=== PATIENT | female | born 1940 | race Two or more races ===

== ENCOUNTER 2017-07-18 13:20 | Inpatient (IN) | payer MEDICARE, MEDICAID ==
[~2017-07-18] VITALS: Ht 152.4 cm; Wt 75.8 kg
[2017-07-18] MEDS ORDERED: Solu-MEDROL 125mg Inj IVP ONE (13:30)
[2017-07-18] MEDS ORDERED: Albuterol ud Inhalation HHN SCH (13:30)
[2017-07-18] MEDS ORDERED: Albuterol/Ipratropium 3ml neb ONE (13:32)
[2017-07-18 13:45] VITALS: BP 140/80
[2017-07-18] MEDS ORDERED: Levalbuterol Inh UD 1.25mg/0.5ml HHN ONE (13:45)
[2017-07-18] MEDS ORDERED: MAGNESIUM400 M1 PO (13:45)
[2017-07-18] MEDS ORDERED: SYMBICORT 16010.2 G1 IH (13:45)
[2017-07-18] MEDS ORDERED: MONTELUKAST SOD10 MG ORAL (13:45)
[2017-07-18] MEDS ORDERED: COUMADIN5 MG ORAL (13:45)
[2017-07-18] MEDS ORDERED: FERROUS SULFAT325 MG ORAL (13:45)
[2017-07-18] MEDS ORDERED: TYLENOL EXTRA500 MG ORAL (13:45)
[2017-07-18] MEDS ORDERED: VITAMIN D400 INTLU ORAL (13:45)
[2017-07-18] MEDS ORDERED: FUROSEMIDE40 MG ORAL (13:45)
[2017-07-18] MEDS ORDERED: IPRATROPIU0.2 MG/1 M HHN (13:45)
[2017-07-18] MEDS ORDERED: METFORMIN HCL500 M1 ORAL (13:45)
[2017-07-18] MEDS ORDERED: LEVOTHYROXINE75 MCG ORAL (13:45)
[2017-07-18] MEDS ORDERED: VITAMIN B COMP1 EAC2 ORAL (13:45)
[2017-07-18] MEDS ORDERED: METOPROLOL SUCC25 MG ORAL (13:45)
[2017-07-18] MEDS ORDERED: JANUVIA25 MG ORAL (13:45)
[2017-07-18] MEDS ORDERED: LATANOPROST2.5 ML BOTH EYES (13:45)
[2017-07-18] MEDS ORDERED: ALBUTEROL2.5 MG/3 M INH (13:45)
[2017-07-18] MEDS ORDERED: LEXAPRO10 MG ORAL (13:45)
[2017-07-18] MEDS ORDERED: ZOCOR20 M1 ORAL (13:45)
--- NOTE | 2017-07-18 13:59 | Emergency Room Report ---
History of Present Illness General Chief Complaint: Dyspnea/Respdistress Source: Patient, Caregiver Present Illness HPI 76-year-old female, brought in by caregiver, shortness of breath. Patient has history of asthma, today patient more short of breath than normal. Wheezing. Given nebulizer by EMS. Caregiver states that patient has been eating and drinking well just with labored breathing today. Caregiver denies any no recent hospitalizations Patient is awake, oriented x2, however not giving clear history Allergies: Coded Allergies: No Known Allergies (Unverified , 07/18/17) Patient History Past Medical History: see triage record Past Surgical History: none Pertinent Family History: none Reviewed Nursing Documentation: PMH: Agreed, PSxH: Agreed Nursing Documentation-PMH Hx Hypertension: Yes Hx Asthma: Yes Review of Systems All Other Systems: negative except mentioned in HPI Physical Exam Vital Signs Date Time Temp Pulse Resp B/P (MAP) Pulse Ox O2 Delivery O2 Flow Rate FiO2 07/18/17 13:21 98.0 130 20 140/80 98 Non-Rebreather 98.1 Sp02 EP Interpretation: reviewed, normal General Appearance: alert, moderate distress, Chronically Ill Head: normocephalic, atraumatic Eyes: bilateral eye normal inspection, bilateral eye PERRL, bilateral eye EOMI ENT: normal ENT inspection, normal pharynx, normal voice, moist mucus membranes Neck: normal inspection, full range of motion, supple Respiratory: respiratory distress, accessory muscle use, wheezing, expiration Cardiovascular #1: normal inspection, regular rate, rhythm, no edema, normal capillary refill Cardiovascular #2: 2+ radial (R), 2+ radial (L) Gastrointestinal: normal inspection, non tender, soft, non-distended, no guarding Musculoskeletal: normal inspection, back normal, normal range of motion, non- tender Neurologic: alert, responsive, system dispatcher III-XII nml as tested, sensory intact Psychiatric: other - poor historian Skin: normal inspection, normal color, no rash, warm/dry, well hydrated, normal turgor Procedures Critical Care Time Critical Care Time 40 minutes of CC time 76-year-old female, shortness of breath Likely with asthma exacerbation VS: Tachycardia, tachypnea PLAN: IV access, labs, nebs, steroids Anticipate admission to [facility] vs. [facility] CC time also includes review of labs, review of EMR, discussion with family and paperwork from SNF, d/w hospitalist CC could include dosing of pressors, additional Abx CC time does not include procedures Medical Decision Making Diagnostic Impression: Primary Impression: Respiratory distress Additional Impressions: Asthma exacerbation CHF exacerbation UTI (urinary tract infection) ER Course 76-year-old female with history of asthma p/w SOB DDX: Asthma exacerbation, pneumonia, upper respiratory infection/viral syndrome ACS Plan: Labs, Combivent nebulizer treatment x 3, steroids, EKG, CXR IV medications such as magnesium sulfate, continuous albuterol, BIPAP. ER Course: Patient's respiratory status has been closely monitored in the ED. Patient has been treated with Xopenex IV magnesium sulfate Repeat lung auscultation reveals persistent wheezing. Patent's remains tachypneic and hypoxic on room air. Patient has been placed on BIPAP. Disposition: Patient will be admitted to [facility]. Patient's status is serious as vitals reveals tachypnea and hypoxia. Patient requires close monitoring of respiratory status, continuation of BIPAP, and nebulizer Signed out to Dr Crespo -please endorse to admitting physician Please note that this Emergency Department Report was dictated using [employer] supervisor [employer] technology software, occasionally this can lead to erroneous entry secondary to interpretation by the dictation equipment. EKG Diagnostic Results EP Interpretation: Yes Rate: Tachycardic Rhythm: NSR ST Segments: No acute changes ASA given to patient: No Rhythm Strip EP Interpretation: Yes Rate: 130 Rhythm: NSR, no PVCs, no ectopy Chest X-ray CXR: Ordered: Yes 1 view Indication: SOB EP interpretation: Yes Interpretation: cardiomegaly, pulm vasc cingestion Impression: cardiomegaly, pulm vasc cingestion Electronically signed by Samaria Ndiaye MD Laboratory Tests Test 07/18/17 14:45 07/18/17 15:10 07/18/17 15:44 07/19/17 03:45 Arterial Blood pH 7.490 (7.350-7.450) Arterial Blood Partial Pressure CO2 29.7 mmHg (35.0-45.0) L Arterial Blood Partial Pressure O2 107.0 mmHg (75.0-100.0) H Arterial Blood HCO3 22.1 mmol/L (22.0-26.0) Arterial Blood Oxygen Saturation 97.6 % (92.0-98.0) Arterial Blood Base Excess -0.5 Tom Test Positive White Blood Count 11.1 K/UL (4.8-10.8) H 6.5 K/UL (4.8-10.8) Red Blood Count 3.90 M/UL (4.20-5.40) L 3.95 M/UL (4.20-5.40) L Hemoglobin 10.4 G/DL (12.0-16.0) L 10.9 G/DL (12.0-16.0) L Hematocrit 32.9 % (37.0-47.0) L 33.4 % (37.0-47.0) L Mean Corpuscular Volume 84 FL (80-99) 84 FL (80-99) Mean Corpuscular Hemoglobin 26.8 PG (27.0-31.0) L 27.5 PG (27.0-31.0) Mean Corpuscular Hemoglobin Concent 31.8 G/DL (32.0-36.0) L 32.6 G/DL (32.0-36.0) Red Cell Distribution Width 14.4 % (11.6-14.8) 14.7 % (11.6-14.8) Platelet Count 254 K/UL (150-450) 248 K/UL (150-450) Mean Platelet Volume 6.1 FL (6.5-10.1) L 5.8 FL (6.5-10.1) L Neutrophils (%) (Auto) 69.5 % (45.0-75.0) % (45.0-75.0) Lymphocytes (%) (Auto) 20.1 % (20.0-45.0) % (20.0-45.0) Monocytes (%) (Auto) 9.4 % (1.0-10.0) % (1.0-10.0) Eosinophils (%) (Auto) 0.1 % (0.0-3.0) % (0.0-3.0) Basophils (%) (Auto) 1.0 % (0.0-2.0) % (0.0-2.0) Prothrombin Time 17.0 SEC (9.30-11.50) H 20.0 SEC (9.30-11.50) H Prothrombin Time INR 1.6 (0.9-1.1) H 1.9 (0.9-1.1) H PTT 35 SEC (23-33) H Sodium Level 136 MMOL/L (136-145) 136 MMOL/L (136-145) Potassium Level 4.3 MMOL/L (3.5-5.1) 4.4 MMOL/L (3.5-5.1) Chloride Level 101 MMOL/L (98-107) 100 MMOL/L (98-107) Carbon Dioxide Level 27 MMOL/L (21-32) 29 MMOL/L (21-32) Anion Gap 8 mmol/L (5-15) 7 mmol/L (5-15) Blood Urea Nitrogen 23 mg/dL (7-18) H 29 mg/dL (7-18) H Creatinine 1.3 MG/DL (0.55-1.30) 1.5 MG/DL (0.55-1.30) H Estimate Glomerular Filtration Rate mL/min (>60) mL/min (>60) Glucose Level 152 MG/DL (74-106) H 201 MG/DL (74-106) H Lactic Acid Level 1.20 mmol/L (0.66-2.22) Calcium Level 9.6 MG/DL (8.5-10.1) 9.3 MG/DL (8.5-10.1) Total Bilirubin 1.0 MG/DL (0.2-1.0) 0.6 MG/DL (0.2-1.0) Aspartate Amino Transferase (AST) 50 U/L (15-37) H 20 U/L (15-37) Alanine Aminotransferase (ALT) 24 U/L (12-78) 25 U/L (12-78) Alkaline Phosphatase 62 U/L (46-116) 63 U/L (46-116) Troponin I 0.150 ng/mL (0.000-0.056) 0.099 ng/mL (0.000-0.056) Pro-B-Type Natriuretic Peptide 57513 pg/mL (0-125) H Total Protein 7.0 G/DL (6.4-8.2) 7.0 G/DL (6.4-8.2) Albumin 3.0 G/DL (3.4-5.0) L 2.9 G/DL (3.4-5.0) L Globulin 4.0 g/dL 4.1 g/dL Albumin/Globulin Ratio 0.8 (1.0-2.7) L 0.7 (1.0-2.7) L Urine Color Brown Urine Appearance Slightly cloudy Urine pH 5 (4.5-8.0) Urine Specific [place] 1.015 (1.005-1.035) Urine Protein 3+ (NEGATIVE) H Urine Glucose (UA) Negative (NEGATIVE) Urine Ketones 2+ (NEGATIVE) H Urine Occult Blood 4+ (NEGATIVE) H Urine Nitrite Negative (NEGATIVE) Urine Bilirubin 1+ (NEGATIVE) H Urine Ictotest Negative Urine Urobilinogen 1 MG/DL (0.0-1.0) H Urine Leukocyte Esterase 3+ (NEGATIVE) H Urine RBC 10-15 /HPF (0 - 2) H Urine WBC 40-60 /HPF (0 - 2) H Urine Squamous Epithelial Cells Few /LPF (NONE/OCC) Urine Amorphous Sediment Moderate /LPF (NONE) H Urine Bacteria Many /HPF (NONE) H Hemoglobin A1c 6.6 % (4.3-6.0) H Thyroid Stimulating Hormone (TSH) 3.166 uiU/mL (0.358-3.740) Last Vital Signs Date Time Temp Pulse Resp B/P (MAP) Pulse Ox O2 Delivery O2 Flow Rate FiO2 07/18/17 13:21 98.0 130 20 140/80 98 Non-Rebreather 98.1 Disposition: ADMITTED INPATIENT Condition: Critical Samaria Ndiaye M.D. Jul 18, 2017 13:58
[2017-07-18] MEDS: Ipratropium 0.02% Inh Soln 2.5ml UD HHN SCH (14:21)
--- NOTE | 2017-07-18 14:38 | Diagnostic Imaging Report ---
Indication: Shortness of breath Technique: One view of the chest Comparison: none Findings: Heart is enlarged. There is mild interstitial congestion. There may be small bilateral pleural effusions. Impression: Cardiomegaly with evidence of mild congestive heart failure
[2017-07-18 15:44] LABS: ANION GAP 8 mmol/L (5-15); BLOOD UREA NITROGEN 23 mg/dL (7-18); CALCIUM 9.6 MG/DL (8.5-10.1); CARBON DIOXIDE 27 MMOL/L (21-32); CHLORIDE 101 MMOL/L (98-107); CREATININE 1.3 MG/DL (0.55-1.30); POTASSIUM 4.3 MMOL/L (3.5-5.1); SODIUM 136 MMOL/L (136-145)
[2017-07-18 15:47] LABS: EOSINOPHILS % (AUTO) 0.1 % (0.0-3.0); HEMATOCRIT 32.9 % (37.0-47.0); HEMOGLOBIN 10.4 G/DL (12.0-16.0); INR 1.6 (0.9-1.1); LYMPHOCYTES % (AUTO) 20.1 % (20.0-45.0); MEAN CORPUSCULAR VOLUME 84 FL (80-99); MONOCYTES % (AUTO) 9.4 % (1.0-10.0); NEUTROPHILS % (AUTO) 69.5 % (45.0-75.0); PLATELET COUNT 254 K/UL (150-450); RED CELL DISTRIBUTION WIDTH 14.4 % (11.6-14.8); WHITE BLOOD COUNT 11.1 K/UL (4.8-10.8)
[2017-07-18 15:57] VITALS: BP 114/81
[2017-07-18 16:06] LABS: ALANINE AMINOTRANSFERASE 24 U/L (12-78); ALBUMIN/GLOBULIN RATIO 0.8 (1.0-2.7); ALKALINE PHOSPHATASE 62 U/L (46-116); ASPARTATE AMINO TRANSFERASE 50 U/L (15-37)
[2017-07-18 16:13] LABS: APPEARANCE,URINE SLIGHTLY CLOUDY; BILIRUBIN, URINE 1+ (NEGATIVE); COLOR,URINE BROWN; GLUCOSE, URINE (UA) NEGATIVE (NEGATIVE); KETONES,URINE 2+ (NEGATIVE); LEUKOCYTE ESTERASE ,URINE 3+ (NEGATIVE); NITRITE,URINE NEGATIVE (NEGATIVE); PH,URINE 5 (4.5-8.0); PROTEIN,URINE 3+ (NEGATIVE); UROBILINOGEN,URINE 1 MG/DL (0.0-1.0)
--- NOTE | 2017-07-18 18:52 | History & Physical ---
History and Physical History & Physicial Dictated #[id number] BANDAR NAZARIO Jul 18, 2017 18:52
[2017-07-18 19:30] VITALS: BP 109/84
[2017-07-18] MEDS ORDERED: Warfarin Sodium 3mg ORAL ONE (20:00)
[2017-07-18 20:30] VITALS: BP 112/88
--- NOTE | 2017-07-18 20:30 | History and Physical Report ---
DATE OF ADMISSION: 07/18/2017 REASON OF ADMISSION: Respiratory distress. 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 She has been very tachypneic, has been put on BiPAP. A chest x-ray is showing evidence of apical redistribution of the vessels and her white count is in the range of 11,000. Urinalysis is showing 40 to 60 WBCs per high-power field and urine has been sent for culture and sensitivity and she has been receiving IV Levaquin 750 mg by the time I am seeing her. She has underlying dementia. She is not able to give me a very fruitful history. 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 PAST SURGICAL HISTORY: Unknown. MEDICATIONS: Prior to admission have been Synthroid 0.075 mg p.o. daily; Lasix 40 mg p.o. daily, adjusted for her weight in the range of 54 kg; metformin 500 mg p.o. b.i.d.; Toprol-XL 12.5 mg p.o. daily; Singulair 10 mg p.o. daily; Januvia 100 mg p.o. daily; Diovan 80 mg p.o. daily; Coumadin 5 mg p.o. daily; DuoNeb q.6 h. p.r.n.; Advair one puff b.i.d.; and Xalatan eyedrops 0.05% in both eyes nightly. ALLERGIES: Aspirin. SOCIAL HISTORY: Does not smoke. She has been, however, exposed to secondhand smoke from the . She is living in an assisted living with a networks computer consultant. She has three daughters, two of them are out of state. FAMILY HISTORY: Noncontributory. REVIEW OF SYSTEMS: Impossible since she is not able to give me much history. PHYSICAL EXAMINATION: GENERAL: She does not seem to be in much acute distress. She is on BiPAP in the course of the emergency room. VITAL SIGNS: Blood pressure is 114/81, pulse of 98, respirations 18, and temperature 98.5 degrees. HEENT: Head is atraumatic. Eyes, pupils reactive to light. No evidence of papilledema. She has a BiPAP mask in place. NECK: Supple. Jugular venous distention is somewhat increased. HEART: Irregularly irregular. LUNGS: There are few crackles and few expiratory wheezes bilaterally. ABDOMEN: Supple. Bowel sounds positive. No hepatosplenomegaly. EXTREMITIES: Lower extremities show 1 to 2+ pedal edema. NEUROLOGICAL: Cranial nerves are grossly intact. She is disoriented x3 and deep tendon reflexes are symmetrically decreased in both lower extremities. LABORATORY DATA: Showing sodium 136, potassium 4.3, chloride 101, carbon dioxide 27, BUN is 23, creatinine is 1.3, glucose 152, and calcium 9.6. BNP of 10,940 and troponin of 0.15. WBC is 11.1, hemoglobin is 10.4, hematocrit 32.9, and platelets of 254,000. Urinalysis is showing 40 to 60 WBCs per high-power field, 2+ protein, negative nitrite, and 4+ blood. INR is 1.6. Chest x-ray is showing evidence of apical redistribution of the vessels. A 12-lead EKG is showing evidence of low-voltage compatible with COPD. Also, atrial fibrillation. No signs of acute ischemic changes. IMPRESSION: 1. Respiratory failure and distress most likely due to underlying congestive heart failure. I am suspecting possibility of acute exacerbation of diastolic dysfunction. 2. Pyuria with probable underlying urinary tract infection. 3. Type 2 diabetes mellitus. 4. Obstructive sleep apnea. 5. Hypothyroidism. PLAN: She is going to be admitted. We are going to give her Lasix 40 mg IV q.8 h. x2. We will obtain a 2D echocardiogram, also serial troponins. Pulmonary consult is in order. She has received IV Levaquin. Urine culture is still pending. We are going to adjust the dose of antibiotics and the choice of antibiotics is based on the urine culture. Mihai Pride M.D. DR: Ke JOB#: [id number] CC:
[2017-07-18] MEDS: Enoxaparin 30mg Inj SUBQ SCH (22:46)
[2017-07-19 05:10] LABS: HEMATOCRIT 33.4 % (37.0-47.0); HEMOGLOBIN 10.9 G/DL (12.0-16.0); MEAN CORPUSCULAR VOLUME 84 FL (80-99); PLATELET COUNT 248 K/UL (150-450); RED BLOOD COUNT 3.95 M/UL (4.20-5.40); RED CELL DISTRIBUTION WIDTH 14.7 % (11.6-14.8); WHITE BLOOD COUNT 6.5 K/UL (4.8-10.8)
[2017-07-19 05:18] LABS: ANION GAP 7 mmol/L (5-15); BLOOD UREA NITROGEN 29 mg/dL (7-18); CALCIUM 9.3 MG/DL (8.5-10.1); CARBON DIOXIDE 29 MMOL/L (21-32); CHLORIDE 100 MMOL/L (98-107); CREATININE 1.5 MG/DL (0.55-1.30); POTASSIUM 4.4 MMOL/L (3.5-5.1); SODIUM 136 MMOL/L (136-145)
[2017-07-19 05:31] LABS: ALANINE AMINOTRANSFERASE 25 U/L (12-78); ALBUMIN 2.9 G/DL (3.4-5.0); ALBUMIN/GLOBULIN RATIO 0.7 (1.0-2.7); ALKALINE PHOSPHATASE 63 U/L (46-116); ASPARTATE AMINO TRANSFERASE 20 U/L (15-37); BILIRUBIN,TOTAL 0.6 MG/DL (0.2-1.0)
[2017-07-19 06:15] LABS: INR 1.9 (0.9-1.1)
[2017-07-19] MEDS: sitaGLIPtin 50mg tab ORAL SCH (06:40)
[2017-07-19 08:00] VITALS: BP 129/90
[2017-07-19] MEDS: metFORMIN 500mg tab ORAL SCH ×2 (09:22→17:13)
--- NOTE | 2017-07-19 11:26 | Consultation ---
Consult Note Assessment/Plan pulm consult dict resp failure, improved asthma frantz poss sepsis uti dm abx hhn steroids cpap MAE DIEGO Jul 19, 2017 11:26
[2017-07-19 12:00] VITALS: BP 107/69
[2017-07-19] MEDS: Levalbuterol Inh UD 1.25mg/0.5ml HHN SCH ×3 (13:00→19:42)
[2017-07-19] MEDS ORDERED: Albuterol/Ipratropium 3ml neb HHN SCH (13:00)
[2017-07-19] MEDS ORDERED: Metoprolol Succinate XL 25mg tab ORAL SCH (13:00)
[2017-07-19] MEDS: Ipratropium 0.02% Inh Soln 2.5ml UD HHN SCH ×3 (13:00→19:42)
[2017-07-19] MEDS: Ampicillin/Sulbactam Sod 3 GM in NS 110 ML IVPB SCH ×2 (13:02→20:17)
--- NOTE | 2017-07-19 14:11 | General Progress Note ---
Assessment/Plan Problem List: (1) UTI (urinary tract infection) ICD Codes: N39.0 - Urinary tract infection, site not specified SNOMED: 13195188 (2) Respiratory distress ICD Codes: R06.03 - Acute respiratory distress SNOMED: 844252776 (3) CHF exacerbation ICD Codes: I50.9 - Heart failure, unspecified SNOMED: 94375960 (4) Asthma exacerbation ICD Codes: J45.901 - Unspecified asthma with (acute) exacerbation SNOMED: 772325228 (5) Sepsis ICD Codes: A41.9 - Sepsis, unspecified organism SNOMED: 34044867 (6) Atrial fibrillation with rapid ventricular response ICD Codes: I48.91 - Unspecified atrial fibrillation SNOMED: 375381706126834 Assessment/Plan add vanco pending culture, metoprolol for rate control, lasix, aldactone Subjective Constitutional: Reports: weakness HEENT: Reports: no symptoms Cardiovascular: Reports: irregular heart rate Respiratory: Reports: cough, shortness of breath Gastrointestinal/Abdominal: Reports: no symptoms Genitourinary: Reports: no symptoms Neurologic/Psychiatric: Reports: pre-existing deficit Endocrine: Reports: no symptoms Allergies: Coded Allergies: No Known Allergies (Unverified , 07/18/17) Objective Last 24 Hour Vital Signs Date Time Temp Pulse Resp B/P (MAP) Pulse Ox O2 Delivery O2 Flow Rate FiO2 07/19/17 13:02 108 112/72 07/19/17 12:00 97.0 109 16 107/69 100 Nasal Cannula 4.0 07/19/17 11:37 111 07/19/17 09:16 130 16 100 Facial 60 07/19/17 08:00 96.8 130 16 129/90 100 Bi-pap 60 07/19/17 08:00 60 07/19/17 07:43 131 07/19/17 07:22 131 15 100 Facial 60 07/19/17 05:04 130 14 100 Facial 100 07/19/17 04:00 129 07/19/17 04:00 100 07/19/17 03:05 129 18 100 Facial 100 07/19/17 01:14 118 16 99 Facial 100 07/19/17 00:00 100 07/19/17 00:00 125 07/18/17 23:01 124 14 100 Facial 100 07/18/17 21:03 126 28 99 Facial 100 07/18/17 20:40 98.1 129 16 112/88 100 Bi-pap 7.0 100 98.1 07/18/17 20:30 129 16 112/88 100 Bi-pap 7.0 100 07/18/17 19:30 128 23 109/84 100 Bi-pap 7.0 100 07/18/17 19:18 112 22 100 Facial 100 07/18/17 16:30 125 18 100 Facial 100 07/18/17 15:57 98.1 18 114/81 98 7.0 100 98.1 07/18/17 15:09 130 18 100 Facial 100 07/18/17 14:16 145 18 100 Facial 100 07/18/17 14:15 136 26 99 Bi-pap 100 Intake and Output 07/18/17 07/19/17 19:00 07:00 Intake Total 0 ml 50 ml Output Total 100 ml Balance 0 ml -50 ml Intake Oral 0 ml 50 ml Output Urine Total 100 ml # Voids 1 Laboratory Tests 07/18/17 14:45: Arterial Blood pH 7.490H, Arterial Blood Partial Pressure CO2 29.7L, Arterial Blood Partial Pressure O2 107.0H, Arterial Blood HCO3 22.1, Arterial Blood Oxygen Saturation 97.6, Arterial Blood Base Excess -0.5, Tom Test Positive 07/18/17 15:10: White Blood Count 11.1H, Red Blood Count 3.90L, Hemoglobin 10.4L, Hematocrit 32.9L, Mean Corpuscular Volume 84, Mean Corpuscular Hemoglobin 26.8L, Mean Corpuscular Hemoglobin Concent 31.8L, Red Cell Distribution Width 14.4, Platelet Count 254, Mean Platelet Volume 6.1L, Neutrophils (%) (Auto) 69.5, Lymphocytes (%) (Auto) 20.1, Monocytes (%) (Auto) 9.4, Eosinophils (%) (Auto) 0.1, Basophils (%) (Auto) 1.0, Prothrombin Time 17.0H, Prothromb Time International Ratio 1.6H, Activated Partial Thromboplast Time 35H, Sodium Level 136, Potassium Level 4.3, Chloride Level 101, Carbon Dioxide Level 27, Anion Gap 8, Blood Urea Nitrogen 23H, Creatinine 1.3, Estimat Glomerular Filtration Rate , Glucose Level 152H, Lactic Acid Level 1.20, Calcium Level 9.6, Total Bilirubin 1.0, Aspartate Amino Transf (AST/SGOT) 50H, Alanine Aminotransferase ( ALT/SGPT) 24, Alkaline Phosphatase 62, Troponin I 0.150H, Pro-B-Type Natriuretic Peptide 06318J, Total Protein 7.0, Albumin 3.0L, Globulin 4.0, Albumin/Globulin Ratio 0.8L 07/18/17 15:44: Urine Color Brown, Urine Appearance Slightly cloudy, Urine pH 5, Urine Specific [place] 1.015, Urine Protein 3+H, Urine Glucose (UA) Negative, Urine Ketones 2+H , Urine Occult Blood 4+H, Urine Nitrite Negative, Urine Bilirubin 1+H, Urine Ictotest Negative, Urine Urobilinogen 1H, Urine Leukocyte Esterase 3+H, Urine RBC 10-15H, Urine WBC 40-60H, Urine Squamous Epithelial Cells Few, Urine Amorphous Sediment ModerateH, Urine Bacteria ManyH 07/19/17 03:45: White Blood Count 6.5, Red Blood Count 3.95L, Hemoglobin 10.9L, Hematocrit 33.4L , Mean Corpuscular Volume 84, Mean Corpuscular Hemoglobin 27.5, Mean Corpuscular Hemoglobin Concent 32.6, Red Cell Distribution Width 14.7, Platelet Count 248, Mean Platelet Volume 5.8L, Neutrophils (%) (Auto) , Lymphocytes (%) ( Auto) , Monocytes (%) (Auto) , Eosinophils (%) (Auto) , Basophils (%) (Auto) , Prothrombin Time 20.0H, Prothromb Time International Ratio 1.9H, Sodium Level 136, Potassium Level 4.4, Chloride Level 100, Carbon Dioxide Level 29, Anion Gap 7, Blood Urea Nitrogen 29H, Creatinine 1.5H, Estimat Glomerular Filtration Rate , Glucose Level 201H, Calcium Level 9.3, Total Bilirubin 0.6, Aspartate Amino Transf (AST/SGOT) 20, Alanine Aminotransferase (ALT/SGPT) 25, Alkaline Phosphatase 63, Troponin I 0.099H, Total Protein 7.0, Albumin 2.9L, Globulin 4.1 , Albumin/Globulin Ratio 0.7L, Hemoglobin A1c 6.6H, Thyroid Stimulating Hormone (TSH) 3.166 Height (Feet): 5 Weight (Pounds): 201 General Appearance: no apparent distress, obese EENT: normal ENT inspection Neck: normal alignment Cardiovascular: regularly irregular, tachycardia Abdomen: soft, no organomegaly Edema: trace edema Neurologic: medical writer II-XII grossly normal IMELDA GRIER Jul 19, 2017 14:11
[2017-07-19] MEDS: Spironolactone 25mg tab ORAL SCH (15:04)
[2017-07-19] MEDS: Metoprolol 25mg tab ORAL SCH ×2 (15:04→23:49)
--- NOTE | 2017-07-19 15:10 | Cardiology Report ---
APPROVED REPORT EXAM: Two-dimensional and M-mode echocardiogram with Doppler and color Doppler. INDICATION Congestive Heart Failure M-Mode DIMENSIONS IVSd1.6 (0.7-1.1cm)Left Atrium (MM)4.2 (1.6-4.0cm) LVDd3.1 (3.5-5.6cm)Aortic Root3.5 (2.0-3.7cm) PWd1.2 (0.7-1.1cm)Aortic Cusp Exc.1.1 (1.5-2.0cm) IVSs1.6 cm LVDs2.2 (2.5-4.0cm) PWs1.8 cm Technically difficult study due to poor acoustical windows. Normal left ventricular chamber size, systolic function and wall motion. Left ventricular ejection fraction estimated to be 60-65%. Moderate left ventricular hypertrophy. Small anterior and posterior pericardial effusion. Mild bi-atrial enlargement by 2D. Calicified aortic valve sclerosis with reduced cusp excursion. Thickened mitral valve leaflets with soem decrease in excursion. Moderate mitral annulus and aortic root calcification. Pulmonic valve is well visualized. Normal tricuspid valve structure. IVC is normal in size and collapsible with respiration. A color flow and spectral Doppler study was performed and revealed: Trace aortic regurgitation. No mitral regurgitation. Mitral valve peak gradient average 17 mmgh and mean gradient 8 mmhg consistent with at least moderate mitral stenosis Mitral diastolic function not obtainable due to A-Fib. Mild tricuspid regurgitation. Tricuspid systolic velocities suggests peak right ventricular systolic pressure of 30mmHg Pulmonic regurgitation present.
[2017-07-19 16:00] VITALS: BP 103/69
[2017-07-19] MEDS ORDERED: Vancomycin 1250mg/D5W 250ml 250 ML IVPB SCH (16:00)
[2017-07-19] MEDS ORDERED: Warfarin Sodium 3mg ORAL ONE (17:00)
--- NOTE | 2017-07-19 19:45 | Consultation ---
DATE OF CONSULTATION: PULMONARY CONSULTATION CHIEF COMPLAINT: Shortness of breath. HISTORY OF PRESENT ILLNESS: This elderly [place] woman was admitted from home because of shortness of breath. She was found to be tachypneic and was placed on BiPAP. She was given steroids and breathing treatments and admission was arranged. She is better this morning and is on nasal oxygen sitting up in a chair. She has a little knowledge of her past history. PAST MEDICAL HISTORY: The records are reviewed and the history includes severe obstructive sleep apnea, chronic asthma, paroxysmal atrial fibrillation treated with Coumadin, possible COPD, type 2 diabetes, anemia, and hypothyroidism. MEDICATIONS: Reviewed. ALLERGIES: Possibly aspirin. SOCIAL HISTORY: She does not smoke. She apparently was exposed to secondhand smoke from the . She is living in assisted living, at this time with the chaser apprentice. REVIEW OF SYSTEMS: According to the caregiver at the bedside, she has difficulty ambulating. She eats with assistance. She is up in a chair each day and she does not have diarrhea, nausea, or vomiting. PHYSICAL EXAMINATION: GENERAL: The patient is sitting up in a chair, alert. On nasal oxygen, the saturation is 96%. She is overweight. HEENT: The head is normocephalic. NECK: No jugular venous distention. CHEST: Decreased breath sounds. CARDIAC: Rhythm is regular at this time. ABDOMEN: Soft and nontender. EXTREMITIES: No clubbing, cyanosis, or edema. LABORATORY AND DIAGNOSTIC DATA: Chest x-ray shows mild CHF. Blood cultures growing gram-positive cocci in clusters, one of two bottles. Urinalysis shows many white cells and gram-negative rods. IMPRESSION: 1. Acute respiratory failure requiring BiPAP, now improved. 2. Mild congestive heart failure. 3. Chronic asthma with exacerbation. 4. Obstructive sleep apnea. 5. Urinary tract infection. 6. Possible sepsis with gram-positive cocci, possible contaminant. 7. Diabetes. 8. Hypothyroidism. PLAN: The patient will be treated with nebulizer treatments and steroids. We will add antibiotics and adjust according to the results of cultures. The CPAP at night will be added. Marcello Harrington M.D. DR: CHRISTY JOB#: [id number] CC: Mihai Pride M.D.; Fax#: [phone] IMELDA GRIER M.D. ; FAX#: [phone] Cam Tinsley M.D.
[2017-07-19 20:00] VITALS: BP 105/68
[2017-07-19] MEDS: Solu-MEDROL 40mg Inj IVP SCH (20:17)
[2017-07-19] MEDS: Furosemide 40mg tab ORAL SCH (20:17)
[2017-07-19] MEDS: Enoxaparin 30mg Inj SUBQ SCH (20:19)
[2017-07-20] VITALS (7 sets, daily range): BP systolic 87–102; BP diastolic 53–69
[2017-07-20] MEDS: Ipratropium 0.02% Inh Soln 2.5ml UD HHN SCH ×4 (01:51→19:08)
[2017-07-20 05:46] LABS: HEMATOCRIT 32.6 % (37.0-47.0); HEMOGLOBIN 10.5 G/DL (12.0-16.0); MEAN CORPUSCULAR VOLUME 85 FL (80-99); PLATELET COUNT 306 K/UL (150-450); RED BLOOD COUNT 3.84 M/UL (4.20-5.40); RED CELL DISTRIBUTION WIDTH 14.7 % (11.6-14.8); WHITE BLOOD COUNT 10.8 K/UL (4.8-10.8)
[2017-07-20 06:07] LABS: INR 3.4 (0.9-1.1)
[2017-07-20 06:17] LABS: ANION GAP 9 mmol/L (5-15); BLOOD UREA NITROGEN 46 mg/dL (7-18); CARBON DIOXIDE 28 MMOL/L (21-32); CHLORIDE 97 MMOL/L (98-107); CREATININE 1.9 MG/DL (0.55-1.30); POTASSIUM 4.6 MMOL/L (3.5-5.1); SODIUM 134 MMOL/L (136-145)
[2017-07-20] MEDS: sitaGLIPtin 50mg tab ORAL SCH (06:20)
[2017-07-20] MEDS: Metoprolol 25mg tab ORAL SCH ×3 (06:20→20:27)
[2017-07-20] MEDS: Levalbuterol Inh UD 1.25mg/0.5ml HHN SCH ×3 (09:00→19:08)
[2017-07-20] MEDS: Spironolactone 25mg tab ORAL SCH (09:03)
[2017-07-20] MEDS: metFORMIN 500mg tab ORAL SCH (09:03)
[2017-07-20] MEDS: Solu-MEDROL 40mg Inj IVP SCH ×2 (09:03→20:27)
[2017-07-20] MEDS: Furosemide 40mg tab ORAL SCH (09:03)
[2017-07-20] MEDS: Ampicillin/Sulbactam Sod 3 GM in NS 110 ML IVPB SCH (09:04)
--- NOTE | 2017-07-20 14:51 | General Progress Note ---
Assessment/Plan Assessment/Plan 1) CHF is better 2) UTI with sepsis due to Klesiella 3) ? staph bacteremia, ? source, R/O SBE 4) CopD exacerbation 5) WENDY 6) A. Fib Plan: Will stop lasix Will check renal US Continue IV ATB's ID consult Physical RX Subjective Allergies: Coded Allergies: No Known Allergies (Unverified , 07/18/17) Subjective She looks more perky, less sob, off of bipap, creat is up to 1.9, urine CX is positive for klebsiella, blood Cx is positive for staph, TTE showed no vegetation, some moderate mitral stenosis Objective Last 24 Hour Vital Signs Date Time Temp Pulse Resp B/P (MAP) Pulse Ox O2 Delivery O2 Flow Rate FiO2 07/20/17 14:10 96/59 07/20/17 14:00 120 96/59 07/20/17 13:53 110 22 100 Nasal Cannula 4.0 36 07/20/17 12:51 122 07/20/17 12:00 97.6 121 18 87/65 97 Nasal Cannula 3.0 97.6 07/20/17 09:10 99 22 100 Nasal Cannula 4.0 36 07/20/17 09:00 105 22 100 Nasal Cannula 4.0 36 07/20/17 08:09 Nasal Cannula 4.0 36 07/20/17 08:09 100 Nasal Cannula 4.0 36 07/20/17 08:00 97.7 108 16 89/58 93 Room Air 4.0 97.7 07/20/17 08:00 110 07/20/17 06:20 113 110/75 07/20/17 04:00 108 07/20/17 04:00 97.5 107 20 101/69 100 Nasal Cannula 4.0 97.5 07/20/17 01:11 101 22 100 Nasal Cannula 4.0 36 07/20/17 01:04 104 22 100 Nasal Cannula 4.0 36 07/20/17 00:00 97.9 100 20 102/53 100 Nasal Cannula 4.0 97.9 07/20/17 00:00 111 07/19/17 23:49 110 119/85 07/19/17 20:38 112 16 99 Facial 45 07/19/17 20:00 98.2 106 17 105/68 100 Nasal Cannula 4.0 98.2 07/19/17 20:00 110 07/19/17 19:08 124 15 100 Facial 45 07/19/17 19:07 109 17 100 Nasal Cannula 4.0 36 07/19/17 19:00 Nasal Cannula 4.0 36 07/19/17 19:00 98 18 100 Nasal Cannula 4.0 36 07/19/17 19:00 100 Nasal Cannula 4.0 36 07/19/17 16:00 97.5 117 18 103/69 100 Nasal Cannula 4.0 07/19/17 16:00 117 07/19/17 15:04 120 112/72 07/19/17 15:01 116 22 99 Nasal Cannula 4.0 36 07/19/17 14:53 109 22 99 Nasal Cannula 4.0 36 Intake and Output 07/19/17 07/20/17 19:00 07:00 Intake Total 410.000 ml 160 ml Output Total 200 ml 200 ml Balance 210.000 ml -40 ml Intake Oral 50 ml 50 ml IV Total 360.000 ml 110 ml Output Urine Total 200 ml 200 ml Laboratory Tests 07/20/17 04:10: White Blood Count 10.8#, Red Blood Count 3.84L, Hemoglobin 10.5L, Hematocrit 32.6L, Mean Corpuscular Volume 85, Mean Corpuscular Hemoglobin 27.2, Mean Corpuscular Hemoglobin Concent 32.1, Red Cell Distribution Width 14.7, Platelet Count 306, Mean Platelet Volume 5.8L, Neutrophils (%) (Auto) , Lymphocytes (%) ( Auto) , Monocytes (%) (Auto) , Eosinophils (%) (Auto) , Basophils (%) (Auto) , Prothrombin Time 36.2H, Prothromb Time International Ratio 3.4H, Sodium Level 134L, Potassium Level 4.6, Chloride Level 97L, Carbon Dioxide Level 28, Anion Gap 9, Blood Urea Nitrogen 46H, Creatinine 1.9H, Estimat Glomerular Filtration Rate , Glucose Level 205H, Calcium Level 9.0 Height (Feet): 5 Weight (Pounds): 157 General Appearance: WD/WN, no apparent distress, alert EENT: PERRL/EOMI Neck: non-tender, normal alignment, supple Cardiovascular: tachycardia, irregularly irregular Respiratory/Chest: chest wall non-tender, decreased breath sounds Abdomen: non tender Pelvis: normal external exam Edema: trace edema 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
--- NOTE | 2017-07-20 15:12 | Infectious Diseases Prog Note ---
Assessment/Plan Problems: (1) Sepsis Assessment & Plan: with staphylococcus spp grew out of four bottles , most likely real, source? will switch vancomycin to zyvox to avoid further nephrotoxicity pending identifications and sensitivity , will repeat another set of blood culture today to confirm clearance , 2D ECH didn't show any vegetations to suggest endocarditis . (2) UTI (urinary tract infection) Assessment & Plan: with klebsiella pneumonia , continue ceftriaxon for 7 days (3) Respiratory distress Assessment & Plan: CHF VS COPD/ASTHMA exacerbation , recommend CT angio to rule out PE if no improvement in her symptoms , continue inhalers and diuretics as needed (4) Asthma exacerbation Assessment & Plan: continue inhalers, taper steroids, continue antibiotics , monitor CXR (5) WENDY (acute kidney injury) Assessment & Plan: suspect due to bladder outlet obstruction , with 275 cc of urine retention, recommend Bentley catheter for now , will stop vancomycin to avoid further nephrotoxicity Subjective Allergies: Coded Allergies: No Known Allergies (Unverified , 07/18/17) Objective Vital Signs Last 24 Hour Vital Signs Date Time Temp Pulse Resp B/P (MAP) Pulse Ox O2 Delivery O2 Flow Rate FiO2 07/20/17 14:10 96/59 07/20/17 14:00 120 96/59 07/20/17 13:53 110 22 100 Nasal Cannula 4.0 36 07/20/17 12:51 122 07/20/17 12:00 97.6 121 18 87/65 97 Nasal Cannula 3.0 97.6 07/20/17 09:10 99 22 100 Nasal Cannula 4.0 36 07/20/17 09:00 105 22 100 Nasal Cannula 4.0 36 07/20/17 08:09 Nasal Cannula 4.0 36 07/20/17 08:09 100 Nasal Cannula 4.0 36 07/20/17 08:00 97.7 108 16 89/58 93 Room Air 4.0 97.7 07/20/17 08:00 110 07/20/17 06:20 113 110/75 07/20/17 04:00 108 07/20/17 04:00 97.5 107 20 101/69 100 Nasal Cannula 4.0 97.5 07/20/17 01:11 101 22 100 Nasal Cannula 4.0 36 07/20/17 01:04 104 22 100 Nasal Cannula 4.0 36 07/20/17 00:00 97.9 100 20 102/53 100 Nasal Cannula 4.0 97.9 07/20/17 00:00 111 07/19/17 23:49 110 119/85 07/19/17 20:38 112 16 99 Facial 45 07/19/17 20:00 98.2 106 17 105/68 100 Nasal Cannula 4.0 98.2 07/19/17 20:00 110 07/19/17 19:08 124 15 100 Facial 45 07/19/17 19:07 109 17 100 Nasal Cannula 4.0 36 07/19/17 19:00 Nasal Cannula 4.0 36 07/19/17 19:00 98 18 100 Nasal Cannula 4.0 36 07/19/17 19:00 100 Nasal Cannula 4.0 36 07/19/17 16:00 97.5 117 18 103/69 100 Nasal Cannula 4.0 07/19/17 16:00 117 Height (Feet): 5 Weight (Pounds): 157 Microbiology Date/Time Source Procedure Growth Status 07/18/17 15:13 Blood Blood Culture - Preliminary Staphylococcus Species Resulted 07/18/17 15:13 Blood Blood Culture - Preliminary Staphylococcus Species Resulted 07/18/17 15:44 Urine,Clean Catch Urine Culture - Final Klebsiella Pneumoniae Complete Laboratory Tests Test 07/20/17 04:10 White Blood Count 10.8 K/UL (4.8-10.8) # Red Blood Count 3.84 M/UL (4.20-5.40) L Hemoglobin 10.5 G/DL (12.0-16.0) L Hematocrit 32.6 % (37.0-47.0) L Mean Corpuscular Volume 85 FL (80-99) Mean Corpuscular Hemoglobin 27.2 PG (27.0-31.0) Mean Corpuscular Hemoglobin Concent 32.1 G/DL (32.0-36.0) Red Cell Distribution Width 14.7 % (11.6-14.8) Platelet Count 306 K/UL (150-450) Mean Platelet Volume 5.8 FL (6.5-10.1) L Neutrophils (%) (Auto) % (45.0-75.0) Lymphocytes (%) (Auto) % (20.0-45.0) Monocytes (%) (Auto) % (1.0-10.0) Eosinophils (%) (Auto) % (0.0-3.0) Basophils (%) (Auto) % (0.0-2.0) Prothrombin Time 36.2 SEC (9.30-11.50) H Prothromb Time International Ratio 3.4 (0.9-1.1) H Sodium Level 134 MMOL/L (136-145) L Potassium Level 4.6 MMOL/L (3.5-5.1) Chloride Level 97 MMOL/L (98-107) L Carbon Dioxide Level 28 MMOL/L (21-32) Anion Gap 9 mmol/L (5-15) Blood Urea Nitrogen 46 mg/dL (7-18) H Creatinine 1.9 MG/DL (0.55-1.30) H Estimat Glomerular Filtration Rate mL/min (>60) Glucose Level 205 MG/DL (74-106) H Calcium Level 9.0 MG/DL (8.5-10.1) Current Medications Medications (Trade) Dose Ordered Sig/Tam Route PRN Reason Start Time Stop Time Status Last Admin Dose Admin Acetaminophen (Tylenol) 650 mg Q6H PRN ORAL Mild Pain/Temp > 100.5 07/18/17 22:30 08/17/17 22:29 Atorvastatin Calcium (Lipitor) 10 mg QHS ORAL 07/18/17 21:00 08/17/17 20:59 07/19/17 20:17 Ceftriaxone Sodium 1 gm/ Sodium Chloride 55 ml @ 110 mls/hr QHS IVPB 07/20/17 21:00 07/27/17 20:59 Dextrose (Dextrose 50%) STAT PRN IV Hypoglycemia 07/18/17 18:30 08/17/17 18:29 Ipratropium [place] (Atrovent) 500 mcg Q6HRT N 07/19/17 13:00 07/24/17 12:59 07/20/17 13:53 Levalbuterol HCl (Xopenex) 1.25 mg TIDRT N 07/19/17 13:00 07/24/17 12:59 07/20/17 13:53 Levothyroxine Sodium (Synthroid) 75 mcg DAILY@0630 ORAL 07/19/17 06:30 08/18/17 06:29 07/20/17 06:20 Methylprednisolone Sodium Succinate (Solu-MEDROL) 40 mg EVERY 12 HOURS IVP 07/19/17 21:00 08/18/17 20:59 07/20/17 09:03 Metoprolol Tartrate (Lopressor) 25 mg Q8HR ORAL 07/19/17 15:00 08/18/17 14:59 07/20/17 06:20 Pantoprazole (Protonix) 40 mg DAILY ORAL 07/19/17 12:00 08/18/17 11:59 07/20/17 09:03 Sitagliptin Phosphate (Januvia) 25 mg ACBREAKFAST ORAL 07/21/17 06:30 08/20/17 06:29 Vancomycin HCl (Vanco rx to dose) 1 ea DAILY PRN MISC Per rx protocol 07/19/17 14:15 08/18/17 14:14 Warfarin Sodium (Coumadin per pharmacy) 1 ea DAILY PRN MISC Per rx protocol 07/18/17 18:30 08/17/17 18:29 Juan Foy M.D. Jul 20, 2017 15:12
--- NOTE | 2017-07-20 15:23 | Diagnostic Imaging Report ---
Indication: Reason For Exam: COPD, Shortness of breath Technique: XRAY Chest 1v Comparison: 07/18/2017 Findings: Stable cardiomegaly. There is persistent but decreased interstitial opacification/edema. No new focal airspace consolidation. No pleural effusion or pneumothorax. Osseous structures are stable. Impression: Cardiomegaly with persistent but decreased interstitial edema/opacification. No new focal airspace consolidation.
--- NOTE | 2017-07-20 16:13 | Diagnostic Imaging Report ---
Indication: Renal failure Technique: Multiplanar grayscale and color Doppler imaging of the kidneys and bladder. Comparison: None Findings: Right kidney measures 9.1 cm in length. Left kidney measures 9.2 cm in length. Both kidneys demonstrate normal parenchymal thickness and echogenicity. There is no hydronephrosis or sonographically appreciable renal stone bilaterally. Bladder is unremarkable in appearance. Ureteral jets are visualized. There is no significant post void residual bladder volume (post void residual bladder volume of 13 mL). Imaged portions of the IVC and liver unremarkable. IMPRESSION: No evidence of hydronephrosis or sonographically appreciable renal stones. Renal parenchymal echogenicity appears within normal limits bilaterally.
--- NOTE | 2017-07-20 18:11 | Pulmonology Progress Note ---
Assessment/Plan Assessment/Plan 1. Acute respiratory failure requiring BiPAP, now improved. 2. Mild congestive heart failure. 3. Chronic asthma with exacerbation. 4. Obstructive sleep apnea, CPAP at night 5. Urinary tract infection. 6. Sepsis with gram-positive cocci in 4 of 4 BC 7. Diabetes. 8. Hypothyroidism 9. WENDY renal fcn worse abx adjusted per ID for GPC bacteremia no resp distress tolerated CPAP at night cont HHN Subjective Respiratory: Denies: productive cough, shortness of breath Allergies: Coded Allergies: No Known Allergies (Unverified , 07/18/17) Objective Last 24 Hour Vital Signs Date Time Temp Pulse Resp B/P (MAP) Pulse Ox O2 Delivery O2 Flow Rate FiO2 07/20/17 16:01 122 07/20/17 14:10 96/59 07/20/17 14:02 97 22 100 Nasal Cannula 4.0 36 07/20/17 14:00 120 96/59 07/20/17 13:53 110 22 100 Nasal Cannula 4.0 36 07/20/17 12:51 122 07/20/17 12:00 97.6 121 18 87/65 97 Nasal Cannula 3.0 97.6 07/20/17 09:10 99 22 100 Nasal Cannula 4.0 36 07/20/17 09:00 105 22 100 Nasal Cannula 4.0 36 07/20/17 08:09 Nasal Cannula 4.0 36 07/20/17 08:09 100 Nasal Cannula 4.0 36 07/20/17 08:00 97.7 108 16 89/58 93 Room Air 4.0 97.7 07/20/17 08:00 110 07/20/17 06:20 113 110/75 07/20/17 04:00 108 07/20/17 04:00 97.5 107 20 101/69 100 Nasal Cannula 4.0 97.5 07/20/17 01:11 101 22 100 Nasal Cannula 4.0 36 07/20/17 01:04 104 22 100 Nasal Cannula 4.0 36 07/20/17 00:00 97.9 100 20 102/53 100 Nasal Cannula 4.0 97.9 07/20/17 00:00 111 07/19/17 23:49 110 119/85 07/19/17 20:38 112 16 99 Facial 45 07/19/17 20:00 98.2 106 17 105/68 100 Nasal Cannula 4.0 98.2 07/19/17 20:00 110 07/19/17 19:08 124 15 100 Facial 45 07/19/17 19:07 109 17 100 Nasal Cannula 4.0 36 07/19/17 19:00 Nasal Cannula 4.0 36 07/19/17 19:00 98 18 100 Nasal Cannula 4.0 36 07/19/17 19:00 100 Nasal Cannula 4.0 36 Intake and Output 07/19/17 07/20/17 19:00 07:00 Intake Total 410.000 ml 160 ml Output Total 200 ml 200 ml Balance 210.000 ml -40 ml Intake Oral 50 ml 50 ml IV Total 360.000 ml 110 ml Output Urine Total 200 ml 200 ml General Appearance: no acute distress HEENT: atraumatic Respiratory/Chest: lungs clear Cardiovascular: normal rate Abdomen: soft, non tender Microbiology Date/Time Source Procedure Growth Status 07/18/17 15:13 Blood Blood Culture - Preliminary Staphylococcus Species Resulted 07/18/17 15:13 Blood Blood Culture - Preliminary Staphylococcus Species Resulted 07/18/17 15:44 Urine,Clean Catch Urine Culture - Final Klebsiella Pneumoniae Complete Laboratory Tests 07/20/17 04:10: White Blood Count 10.8#, Red Blood Count 3.84L, Hemoglobin 10.5L, Hematocrit 32.6L, Mean Corpuscular Volume 85, Mean Corpuscular Hemoglobin 27.2, Mean Corpuscular Hemoglobin Concent 32.1, Red Cell Distribution Width 14.7, Platelet Count 306, Mean Platelet Volume 5.8L, Neutrophils (%) (Auto) , Lymphocytes (%) ( Auto) , Monocytes (%) (Auto) , Eosinophils (%) (Auto) , Basophils (%) (Auto) , Prothrombin Time 36.2H, Prothromb Time International Ratio 3.4H, Sodium Level 134L, Potassium Level 4.6, Chloride Level 97L, Carbon Dioxide Level 28, Anion Gap 9, Blood Urea Nitrogen 46H, Creatinine 1.9H, Estimat Glomerular Filtration Rate , Glucose Level 205H, Calcium Level 9.0 Current Medications Medications (Trade) Dose Ordered Sig/Tam Route PRN Reason Start Time Stop Time Status Last Admin Dose Admin Acetaminophen (Tylenol) 650 mg Q6H PRN ORAL Mild Pain/Temp > 100.5 07/18/17 22:30 08/17/17 22:29 Atorvastatin Calcium (Lipitor) 10 mg QHS ORAL 07/18/17 21:00 08/17/17 20:59 07/19/17 20:17 Ceftriaxone Sodium 1 gm/ Sodium Chloride 55 ml @ 110 mls/hr QHS IVPB 07/20/17 21:00 07/27/17 20:59 Dextrose (Dextrose 50%) STAT PRN IV Hypoglycemia 07/18/17 18:30 08/17/17 18:29 Ipratropium [place] (Atrovent) 500 mcg Q6HRT HHN 07/19/17 13:00 07/24/17 12:59 07/20/17 13:53 Levalbuterol HCl (Xopenex) 1.25 mg TIDRT HHN 07/19/17 13:00 07/24/17 12:59 07/20/17 13:53 Levothyroxine Sodium (Synthroid) 75 mcg DAILY@0630 ORAL 07/19/17 06:30 08/18/17 06:29 07/20/17 06:20 Linezolid 300 ml @ 300 mls/hr Q12HR IVPB 07/20/17 21:00 07/27/17 20:59 Methylprednisolone Sodium Succinate (Solu-MEDROL) 40 mg EVERY 12 HOURS IVP 07/19/17 21:00 08/18/17 20:59 07/20/17 09:03 Metoprolol Tartrate (Lopressor) 25 mg Q8HR ORAL 07/19/17 15:00 08/18/17 14:59 07/20/17 06:20 Pantoprazole (Protonix) 40 mg DAILY ORAL 07/19/17 12:00 08/18/17 11:59 07/20/17 09:03 Sitagliptin Phosphate (Januvia) 25 mg ACBREAKFAST ORAL 07/21/17 06:30 08/20/17 06:29 Warfarin Sodium (Coumadin per pharmacy) 1 ea DAILY PRN MISC Per rx protocol 07/18/17 18:30 08/17/17 18:29 MAE DIEGO Jul 20, 2017 18:11
[2017-07-20] MEDS: cefTRIAXone 1 GM in NS 55 ML IVPB SCH (20:26)
[2017-07-21] VITALS: BP 90/52
--- NOTE | 2017-07-21 01:00 | Consultation ---
DATE OF CONSULTATION: 07/20/2017 INFECTIOUS DISEASE CONSULTATION CONSULTING PHYSICIAN: Juan Foy M.D. REQUESTING PHYSICIAN: Mihai Pride M.D. REASON FOR CONSULTATION: Sepsis with Staphylococcus species and UTI due to Klebsiella pneumoniae, recommendation for antibiotics treatment and further management. HISTORY OF PRESENT ILLNESS: The patient is a 76-year-old, [place] female with past medical history of COPD, paroxysmal atrial fibrillation, obstructive sleep apnea, diabetes, and anemia, who was brought in to [facility] Emergency Room for progressive shortness of breath. As per the caregiver, the patient was having shortness of breath all of sudden. She did not have any recent upper respiratory infection or flu-like symptoms. She did not travel recently except a trip she made to [facility] in January 2017. The patient denied any fever or chills. No cough or phlegm. No chest pain. No nausea, vomiting, or diarrhea. No headache or blurry vision. In the emergency room, chest x-ray showed congestion on both sides with possible CHF. The patient's urinalysis showed evidence of infection. So, she was started on levofloxacin initially. Then, this was switched to Unasyn by the research epidemiologist and later, she was on vancomycin and ceftriaxone. Two sets of blood cultures grew staphylococcus species with identification and sensitivity pending. Growth was from all bottles including aerobic and anaerobic bottles. She also had urine culture, which grew Klebsiella pneumoniae. So, Infectious Disease consultation was requested for antibiotic treatment and further management. As of note, the patient is poor historian. History was mainly taken from the caregiver and the daughter over the phone. PAST MEDICAL HISTORY: Significant for atrial fibrillation, COPD, obstructive sleep apnea, diabetes type 2, and anemia. PAST SURGICAL HISTORY: Not on record. MEDICATIONS: She is currently on vancomycin, ceftriaxone, and Solu-Medrol. For the rest of her medications, please refer to MAR. ALLERGIES: No known drug allergy. SOCIAL HISTORY: She lives at home with daughter. She is a secondhand smoker in the past, not actively smoking. No recent drugs or alcohol abuse. FAMILY HISTORY: Negative for recurrent infection or immunocompromised condition. REVIEW OF SYSTEMS: A 14-point of system reviewed were all negative apart from the one I mentioned above in my H and P. PHYSICAL EXAMINATION: VITAL SIGNS: Temperature 97.6 degrees, pulse 97, respirations 22, blood pressure 96/59, and pulse oximetry 100% on 4 liters nasal cannula. GENERAL: A middle-aged female, obese, lying in bed, awake, alert, responsive, not in distress. Caregiver at the bedside. HEENT: Normocephalic and atraumatic. Pupils are reactive to light equally. Pale sclerae. Moist oral mucosa. No exudate or thrush. Dentures in place. NECK: Supple. No lymphadenopathy. CARDIOVASCULAR: She was tachycardic. S1 and S2 normal. No murmur. LUNGS: She had diminished breathing sounds at the bases with mild wheezing. ABDOMEN: Soft and distended mainly in the suprapubic area with distended bladder. No rebound. No organomegaly. No ascites. EXTREMITIES: No edema or cyanosis. No clubbing. SKIN: No rash. No hives. No ulceration. LABORATORY AND DIAGNOSTIC DATA: Labs showed white count of 10.8, hemoglobin of 10.5, and platelet count of 306,000. BUN of 46 and creatinine of 1.9. Urinalysis showed negative nitrite, leukocyte esterase +3, WBC 40 to 60, and many bacteria. Microbiology, blood culture x2 on 07/18/2017 grew staphylococcus species out of four bottles. Urine culture grew Klebsiella pneumoniae resistant only to ampicillin and intermediate to nitrofurantoin. IMAGING: Chest x-ray today showed cardiomegaly with decreased interstitial edema and opacification. No new focal airspace consolidation. Echocardiogram showed normal ejection fraction of 60% to 65%, moderate left ventricular hypertrophy, and small anterior and posterior pericardial effusion. No valve vegetation, but calcified aortic valve sclerosis with reduced cusp excursion and thickened mitral valve leaflets. ASSESSMENT AND RECOMMENDATION: 1. Sepsis with staphylococcus species grew out of four bottles, most likely real source unclear at this point. We will switch vancomycin to Zyvox to avoid further nephrotoxicity pending identification and sensitivity of the blood culture. We will repeat another set of blood culture today to confirm clearance. A 2D echocardiogram did not show any vegetations to suggest endocarditis. Continue to monitor culture. 2. Urinary tract infection with Klebsiella pneumoniae. Continue ceftriaxone for seven days. 3. Respiratory distress, congestive heart failure versus chronic obstructive pulmonary disease and asthma exacerbation. Continue inhalers and diuretics as needed. May need CT angiogram to rule out pulmonary embolism if no improvement in her symptoms. 4. Asthma exacerbation. Continue inhalers. Taper steroid. Continue antibiotics. Monitor chest x-ray. Mac Operator is following. 5. Acute kidney failure, suspect due to bladder outlet obstruction with urine retention of 275 mL. Recommend Bentley catheter placement. For now, we will stop vancomycin to avoid further nephrotoxicity. Renal team is following. Thank you for the consult. Infectious Disease will continue to follow. Juan Foy M.D. DR: Noah JOB#: [id number] CC:
[2017-07-21] MEDS: Ipratropium 0.02% Inh Soln 2.5ml UD HHN SCH ×4 (01:09→19:17)
[2017-07-21 04:00] VITALS: BP 109/71
[2017-07-21 04:52] LABS: ANION GAP 9 mmol/L (5-15); BLOOD UREA NITROGEN 57 mg/dL (7-18); CALCIUM 8.6 MG/DL (8.5-10.1); CARBON DIOXIDE 27 MMOL/L (21-32); CHLORIDE 94 MMOL/L (98-107); CREATININE 2.1 MG/DL (0.55-1.30); POTASSIUM 4.8 MMOL/L (3.5-5.1); SODIUM 130 MMOL/L (136-145)
[2017-07-21 04:55] LABS: INR 3.9 (0.9-1.1)
[2017-07-21 04:59] LABS: HEMATOCRIT 30.7 % (37.0-47.0); HEMOGLOBIN 10.1 G/DL (12.0-16.0); MEAN CORPUSCULAR VOLUME 84 FL (80-99); PLATELET COUNT 283 K/UL (150-450); RED BLOOD COUNT 3.65 M/UL (4.20-5.40); RED CELL DISTRIBUTION WIDTH 14.5 % (11.6-14.8); WHITE BLOOD COUNT 7.2 K/UL (4.8-10.8)
[2017-07-21] MEDS: sitaGLIPtin 25mg tab ORAL SCH (05:39)
[2017-07-21] MEDS: Metoprolol 25mg tab ORAL SCH ×2 (05:40→17:54)
[2017-07-21] MEDS: Levalbuterol Inh UD 1.25mg/0.5ml HHN SCH ×3 (07:15→19:17)
[2017-07-21 08:00] VITALS: BP 110/74
[2017-07-21] MEDS: Solu-MEDROL 40mg Inj IVP SCH (08:48)
[2017-07-21 12:00] VITALS: BP 95/68
--- NOTE | 2017-07-21 13:10 | Cardiology Progress Note ---
Assessment/Plan Assessment/Plan The patient is seen and examined, full consult note will be dictated shortly. Objective Last 24 Hour Vital Signs Date Time Temp Pulse Resp B/P (MAP) Pulse Ox O2 Delivery O2 Flow Rate FiO2 07/21/17 12:19 112 18 95 Nasal Cannula 2.0 28 07/21/17 12:09 110 16 95 Room Air 21 07/21/17 12:00 112 07/21/17 12:00 98.7 109 22 95/68 98 Nasal Cannula 3.0 98.7 07/21/17 08:00 97.6 105 17 110/74 98 Nasal Cannula 3.0 97.6 07/21/17 08:00 96 07/21/17 07:23 94 18 99 Nasal Cannula 2.0 28 07/21/17 07:15 Nasal Cannula 2.0 28 07/21/17 07:15 92 18 99 Nasal Cannula 2.0 28 07/21/17 07:15 99 Nasal Cannula 2.0 28 07/21/17 05:40 120 110/74 07/21/17 04:00 97.9 123 18 109/71 98 Nasal Cannula 3.0 97.9 07/21/17 03:54 122 07/21/17 01:19 118 20 99 Nasal Cannula 2.0 28 07/21/17 01:09 114 20 99 Nasal Cannula 2.0 28 07/21/17 00:00 116 07/21/17 00:00 98.7 116 16 90/52 99 Nasal Cannula 3.0 98.7 07/20/17 20:27 116 97/62 07/20/17 20:00 98.1 117 20 88/57 97 Nasal Cannula 3.0 98.1 07/20/17 19:35 116 07/20/17 19:19 116 20 98 Nasal Cannula 2.0 28 07/20/17 19:09 Nasal Cannula 2.0 28 07/20/17 19:09 98 Nasal Cannula 2.0 28 07/20/17 19:09 116 20 98 Nasal Cannula 2.0 28 07/20/17 16:01 122 07/20/17 16:00 98.3 118 20 97/62 97 Nasal Cannula 3.0 98.3 07/20/17 14:10 96/59 07/20/17 14:02 97 22 100 Nasal Cannula 4.0 36 07/20/17 14:00 120 96/59 07/20/17 13:53 110 22 100 Nasal Cannula 4.0 36 Intake and Output 07/20/17 07/21/17 19:00 07:00 Intake Total 355 ml Balance 355 ml IV Total 355 ml # Bowel Movements 1 Laboratory Tests Test 07/21/17 04:20 White Blood Count 7.2 K/UL (4.8-10.8) Red Blood Count 3.65 M/UL (4.20-5.40) L Hemoglobin 10.1 G/DL (12.0-16.0) L Hematocrit 30.7 % (37.0-47.0) L Mean Corpuscular Volume 84 FL (80-99) Mean Corpuscular Hemoglobin 27.6 PG (27.0-31.0) Mean Corpuscular Hemoglobin Concent 32.8 G/DL (32.0-36.0) Red Cell Distribution Width 14.5 % (11.6-14.8) Platelet Count 283 K/UL (150-450) Mean Platelet Volume 5.7 FL (6.5-10.1) L Neutrophils (%) (Auto) % (45.0-75.0) Lymphocytes (%) (Auto) % (20.0-45.0) Monocytes (%) (Auto) % (1.0-10.0) Eosinophils (%) (Auto) % (0.0-3.0) Basophils (%) (Auto) % (0.0-2.0) Prothrombin Time 41.1 SEC (9.30-11.50) H Prothromb Time International Ratio 3.9 (0.9-1.1) H Sodium Level 130 MMOL/L (136-145) L Potassium Level 4.8 MMOL/L (3.5-5.1) Chloride Level 94 MMOL/L (98-107) L Carbon Dioxide Level 27 MMOL/L (21-32) Anion Gap 9 mmol/L (5-15) Blood Urea Nitrogen 57 mg/dL (7-18) H Creatinine 2.1 MG/DL (0.55-1.30) H Estimat Glomerular Filtration Rate mL/min (>60) Glucose Level 275 MG/DL (74-106) H Calcium Level 8.6 MG/DL (8.5-10.1) Random Vancomycin Level 9.7 ug/mL Microbiology Date/Time Source Procedure Growth Status 2/19/18 15:13 Blood Blood Culture - Preliminary Staphylococcus Sp Coag Neg Resulted 07/18/17 15:13 Blood Blood Culture - Preliminary Staphylococcus Sp Coag Neg Resulted 07/18/17 21:20 Nasal Nares MRSA Culture - Final NO METHICILLIN RESISTANT STAPH AUREUS... Complete 07/18/17 15:44 Urine,Clean Catch Urine Culture - Final Klebsiella Pneumoniae Complete 07/18/17 21:20 Rectum VRE Culture - Final NO VANCOMYCIN RESISTANT ENTEROCOCCUS ... Complete DIETER BECKWITH Jul 21, 2017 13:10
[2017-07-21] MEDS ORDERED: Digoxin 0.5mg/2ml Inj IVP ONE (14:00)
--- NOTE | 2017-07-21 14:05 | Infectious Diseases Prog Note ---
Assessment/Plan Problems: (1) Sepsis Assessment & Plan: with coag negative staphylococcus spp grew out of four bottles , most likely real, source? continue zyvox to cover for bacteremia , keep off vancomycin for now to avoid further nephrotoxicity , repeated blood culture to confirm clearance is pending , 2D ECH didn't show any vegetations to suggest endocarditis . will need two weeks of iv antibiotics for her bacteremia (2) UTI (urinary tract infection) Assessment & Plan: with klebsiella pneumonia , continue ceftriaxon for 7 days (3) Respiratory distress Assessment & Plan: CHF VS COPD/ASTHMA exacerbation , continue inhalers and diuretics as needed (4) Asthma exacerbation Assessment & Plan: continue inhalers, taper steroids, continue antibiotics , monitor CXR (5) WENDY (acute kidney injury) Assessment & Plan: suspect due to bladder outlet obstruction , with 275 cc of urine retention, recommend Bentley catheter for now , will keep off vancomycin to avoid further nephrotoxicity Subjective Constitutional: Reports: no symptoms HEENT: Reports: no symptoms Respiratory: Reports: no symptoms Breasts: Reports: no symptoms Cardiovascular: Reports: no symptoms Gastrointestinal/Abdominal: Reports: no symptoms Genitourinary: Reports: no symptoms Neurologic: Reports: no symptoms Psychiatric: Reports: no symptoms Skin: Reports: no symptoms Endocrine: Reports: no symptoms Hematologic: Reports: no symptoms Musculoskeletal: Reports: no symptoms Allergies: Coded Allergies: No Known Allergies (Unverified , 07/18/17) Objective Vital Signs Last 24 Hour Vital Signs Date Time Temp Pulse Resp B/P (MAP) Pulse Ox O2 Delivery O2 Flow Rate FiO2 07/21/17 12:19 112 18 95 Nasal Cannula 2.0 28 07/21/17 12:09 110 16 95 Room Air 21 07/21/17 12:00 112 07/21/17 12:00 98.7 109 22 95/68 98 Nasal Cannula 3.0 98.7 07/21/17 08:00 97.6 105 17 110/74 98 Nasal Cannula 3.0 97.6 07/21/17 08:00 96 07/21/17 07:23 94 18 99 Nasal Cannula 2.0 28 07/21/17 07:15 Nasal Cannula 2.0 28 07/21/17 07:15 92 18 99 Nasal Cannula 2.0 28 07/21/17 07:15 99 Nasal Cannula 2.0 28 07/21/17 05:40 120 110/74 07/21/17 04:00 97.9 123 18 109/71 98 Nasal Cannula 3.0 97.9 07/21/17 03:54 122 07/21/17 01:19 118 20 99 Nasal Cannula 2.0 28 07/21/17 01:09 114 20 99 Nasal Cannula 2.0 28 07/21/17 00:00 116 07/21/17 00:00 98.7 116 16 90/52 99 Nasal Cannula 3.0 98.7 07/20/17 20:27 116 97/62 07/20/17 20:00 98.1 117 20 88/57 97 Nasal Cannula 3.0 98.1 07/20/17 19:35 116 07/20/17 19:19 116 20 98 Nasal Cannula 2.0 28 07/20/17 19:09 Nasal Cannula 2.0 28 07/20/17 19:09 98 Nasal Cannula 2.0 28 07/20/17 19:09 116 20 98 Nasal Cannula 2.0 28 07/20/17 16:01 122 07/20/17 16:00 98.3 118 20 97/62 97 Nasal Cannula 3.0 98.3 07/20/17 14:10 96/59 07/20/17 14:02 97 22 100 Nasal Cannula 4.0 36 07/20/17 14:00 120 96/59 Height (Feet): 5 Weight (Pounds): 155 General Appearance: WD/WN, no acute distress HEENT: normocephalic, atraumatic, anicteric, mucous membranes moist, PERRL Respiratory/Chest: chest wall non-tender, lungs clear, no respiratory distress , no accessory muscle use, decreased breath sounds Cardiovascular: normal peripheral pulses, normal rate, regular rhythm, no gallop/murmur, no JVD Abdomen: normal bowel sounds, soft, non tender, no organomegaly, non distended , no mass, no scars Extremities: no cyanosis, no clubbing Skin: no rash, no lesions, no ulcers Neurologic/Psychiatric: alert, oriented x 3, responsive Microbiology Date/Time Source Procedure Growth Status 07/18/17 15:13 Blood Blood Culture - Preliminary Staphylococcus Sp Coag Neg Resulted 07/18/17 15:13 Blood Blood Culture - Preliminary Staphylococcus Sp Coag Neg Resulted 07/18/17 21:20 Nasal Nares MRSA Culture - Final NO METHICILLIN RESISTANT STAPH AUREUS... Complete 07/18/17 15:44 Urine,Clean Catch Urine Culture - Final Klebsiella Pneumoniae Complete 07/18/17 21:20 Rectum VRE Culture - Final NO VANCOMYCIN RESISTANT ENTEROCOCCUS ... Complete Laboratory Tests Test 07/21/17 04:20 White Blood Count 7.2 K/UL (4.8-10.8) Red Blood Count 3.65 M/UL (4.20-5.40) L Hemoglobin 10.1 G/DL (12.0-16.0) L Hematocrit 30.7 % (37.0-47.0) L Mean Corpuscular Volume 84 FL (80-99) Mean Corpuscular Hemoglobin 27.6 PG (27.0-31.0) Mean Corpuscular Hemoglobin Concent 32.8 G/DL (32.0-36.0) Red Cell Distribution Width 14.5 % (11.6-14.8) Platelet Count 283 K/UL (150-450) Mean Platelet Volume 5.7 FL (6.5-10.1) L Neutrophils (%) (Auto) % (45.0-75.0) Lymphocytes (%) (Auto) % (20.0-45.0) Monocytes (%) (Auto) % (1.0-10.0) Eosinophils (%) (Auto) % (0.0-3.0) Basophils (%) (Auto) % (0.0-2.0) Prothrombin Time 41.1 SEC (9.30-11.50) H Prothromb Time International Ratio 3.9 (0.9-1.1) H Sodium Level 130 MMOL/L (136-145) L Potassium Level 4.8 MMOL/L (3.5-5.1) Chloride Level 94 MMOL/L (98-107) L Carbon Dioxide Level 27 MMOL/L (21-32) Anion Gap 9 mmol/L (5-15) Blood Urea Nitrogen 57 mg/dL (7-18) H Creatinine 2.1 MG/DL (0.55-1.30) H Estimat Glomerular Filtration Rate mL/min (>60) Glucose Level 275 MG/DL (74-106) H Calcium Level 8.6 MG/DL (8.5-10.1) Random Vancomycin Level 9.7 ug/mL Current Medications Medications (Trade) Dose Ordered Sig/Tam Route PRN Reason Start Time Stop Time Status Last Admin Dose Admin Acetaminophen (Tylenol) 650 mg Q6H PRN ORAL Mild Pain/Temp > 100.5 07/18/17 22:30 08/17/17 22:29 Atorvastatin Calcium (Lipitor) 10 mg QHS ORAL 07/18/17 21:00 08/17/17 20:59 07/20/17 20:27 Ceftriaxone Sodium 1 gm/ Sodium Chloride 55 ml @ 110 mls/hr QHS IVPB 07/20/17 21:00 07/27/17 20:59 07/20/17 20:26 Dextrose (Dextrose 50%) STAT PRN IV Hypoglycemia 07/18/17 18:30 08/17/17 18:29 Digoxin (Lanoxin) 0.25 mg ONCE ONCE IVP 07/21/17 14:00 07/21/17 14:01 Ipratropium [place] (Atrovent) 500 mcg Q6HRT HHN 07/19/17 13:00 07/24/17 12:59 07/21/17 12:09 Levalbuterol HCl (Xopenex) 1.25 mg TIDRT HHN 07/19/17 13:00 07/24/17 12:59 07/21/17 12:09 Levothyroxine Sodium (Synthroid) 75 mcg DAILY@0630 ORAL 07/19/17 06:30 08/18/17 06:29 07/21/17 05:39 Linezolid 300 ml @ 300 mls/hr Q12HR IVPB 07/20/17 21:00 07/27/17 20:59 07/21/17 08:48 Methylprednisolone Sodium Succinate (Solu-MEDROL) 40 mg EVERY 12 HOURS IVP 07/19/17 21:00 08/18/17 20:59 07/21/17 08:48 Metoprolol Tartrate (Lopressor) 50 mg BID ORAL 07/21/17 18:00 08/18/17 14:59 Pantoprazole (Protonix) 40 mg DAILY ORAL 07/19/17 12:00 08/18/17 11:59 07/21/17 08:48 Sitagliptin Phosphate (Januvia) 25 mg ACBREAKFAST ORAL 07/21/17 06:30 08/20/17 06:29 07/21/17 05:39 Warfarin Sodium (Coumadin per pharmacy) 1 ea DAILY PRN MISC Per rx protocol 07/18/17 18:30 08/17/17 18:29 Juan Foy M.D. Jul 21, 2017 14:05
--- NOTE | 2017-07-21 15:28 | General Progress Note ---
Assessment/Plan Assessment/Plan 1) CHF is better 2) UTI with sepsis due to Klesiella 3) ? staph bacteremia, ? source, R/O SBE 4) CopD exacerbation 5) WENDY worsening 6) A. Fib Plan: Will stop solumedrol Will start NS at 50 cc/hr x 20 hours Continue IV ATB's Aweaiting cardiology input, ? need for BISI Physical RX Labs in AM Subjective Allergies: Coded Allergies: No Known Allergies (Unverified , 07/18/17) Subjective She is looking better, off of O2, creat is up to 2.1, renal us is negative for hydronephrosis, no urinary retention on bladder scan Objective Last 24 Hour Vital Signs Date Time Temp Pulse Resp B/P (MAP) Pulse Ox O2 Delivery O2 Flow Rate FiO2 07/21/17 12:19 112 18 95 Nasal Cannula 2.0 28 07/21/17 12:09 110 16 95 Room Air 21 07/21/17 12:00 112 07/21/17 12:00 98.7 109 22 95/68 98 Nasal Cannula 3.0 98.7 07/21/17 08:00 97.6 105 17 110/74 98 Nasal Cannula 3.0 97.6 07/21/17 08:00 96 07/21/17 07:23 94 18 99 Nasal Cannula 2.0 28 07/21/17 07:15 Nasal Cannula 2.0 28 07/21/17 07:15 92 18 99 Nasal Cannula 2.0 28 07/21/17 07:15 99 Nasal Cannula 2.0 28 07/21/17 05:40 120 110/74 07/21/17 04:00 97.9 123 18 109/71 98 Nasal Cannula 3.0 97.9 07/21/17 03:54 122 07/21/17 01:19 118 20 99 Nasal Cannula 2.0 28 07/21/17 01:09 114 20 99 Nasal Cannula 2.0 28 07/21/17 00:00 116 07/21/17 00:00 98.7 116 16 90/52 99 Nasal Cannula 3.0 98.7 07/20/17 20:27 116 97/62 07/20/17 20:00 98.1 117 20 88/57 97 Nasal Cannula 3.0 98.1 07/20/17 19:35 116 07/20/17 19:19 116 20 98 Nasal Cannula 2.0 28 07/20/17 19:09 Nasal Cannula 2.0 28 07/20/17 19:09 98 Nasal Cannula 2.0 28 07/20/17 19:09 116 20 98 Nasal Cannula 2.0 28 07/20/17 16:01 122 07/20/17 16:00 98.3 118 20 97/62 97 Nasal Cannula 3.0 98.3 Intake and Output 07/20/17 07/21/17 19:00 07:00 Intake Total 355 ml Balance 355 ml IV Total 355 ml # Bowel Movements 1 Laboratory Tests 07/21/17 04:20: White Blood Count 7.2, Red Blood Count 3.65L, Hemoglobin 10.1L, Hematocrit 30.7L , Mean Corpuscular Volume 84, Mean Corpuscular Hemoglobin 27.6, Mean Corpuscular Hemoglobin Concent 32.8, Red Cell Distribution Width 14.5, Platelet Count 283, Mean Platelet Volume 5.7L, Neutrophils (%) (Auto) , Lymphocytes (%) ( Auto) , Monocytes (%) (Auto) , Eosinophils (%) (Auto) , Basophils (%) (Auto) , Prothrombin Time 41.1H, Prothromb Time International Ratio 3.9H, Sodium Level 130L, Potassium Level 4.8, Chloride Level 94L, Carbon Dioxide Level 27, Anion Gap 9, Blood Urea Nitrogen 57H, Creatinine 2.1H, Estimat Glomerular Filtration Rate , Glucose Level 275H, Calcium Level 8.6, Random Vancomycin Level 9.7 Height (Feet): 5 Weight (Pounds): 155 General Appearance: WD/WN, no apparent distress, alert EENT: PERRL/EOMI, normal ENT inspection Neck: non-tender, normal alignment, supple Cardiovascular: normal rate, regular rhythm, no JVD Respiratory/Chest: decreased breath sounds Abdomen: normal bowel sounds, non tender, soft Extremities: normal range of motion, non-tender Edema: trace edema 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
--- NOTE | 2017-07-21 15:40 | Pulmonology Progress Note ---
Assessment/Plan Assessment/Plan 1. Acute respiratory failure requiring BiPAP, now improved. 2. Mild congestive heart failure. 3. Chronic asthma with exacerbation. 4. Obstructive sleep apnea, CPAP at night 5. Urinary tract infection. 6. Sepsis with gram-positive cocci in 4 of 4 BC 7. Diabetes. 8. Hypothyroidism 9. 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 Subjective Constitutional: Denies: fever, chills Respiratory: Denies: productive cough, shortness of breath Allergies: Coded Allergies: No Known Allergies (Unverified , 07/18/17) Objective Last 24 Hour Vital Signs Date Time Temp Pulse Resp B/P (MAP) Pulse Ox O2 Delivery O2 Flow Rate FiO2 07/21/17 15:13 112 07/21/17 12:19 112 18 95 Nasal Cannula 2.0 28 07/21/17 12:09 110 16 95 Room Air 21 07/21/17 12:00 112 07/21/17 12:00 98.7 109 22 95/68 98 Nasal Cannula 3.0 98.7 07/21/17 08:00 97.6 105 17 110/74 98 Nasal Cannula 3.0 97.6 07/21/17 08:00 96 07/21/17 07:23 94 18 99 Nasal Cannula 2.0 28 07/21/17 07:15 Nasal Cannula 2.0 28 07/21/17 07:15 92 18 99 Nasal Cannula 2.0 28 07/21/17 07:15 99 Nasal Cannula 2.0 28 07/21/17 05:40 120 110/74 07/21/17 04:00 97.9 123 18 109/71 98 Nasal Cannula 3.0 97.9 07/21/17 03:54 122 07/21/17 01:19 118 20 99 Nasal Cannula 2.0 28 07/21/17 01:09 114 20 99 Nasal Cannula 2.0 28 07/21/17 00:00 116 07/21/17 00:00 98.7 116 16 90/52 99 Nasal Cannula 3.0 98.7 07/20/17 20:27 116 97/62 07/20/17 20:00 98.1 117 20 88/57 97 Nasal Cannula 3.0 98.1 07/20/17 19:35 116 07/20/17 19:19 116 20 98 Nasal Cannula 2.0 28 07/20/17 19:09 Nasal Cannula 2.0 28 07/20/17 19:09 98 Nasal Cannula 2.0 28 07/20/17 19:09 116 20 98 Nasal Cannula 2.0 28 07/20/17 16:01 122 07/20/17 16:00 98.3 118 20 97/62 97 Nasal Cannula 3.0 98.3 Intake and Output 07/20/17 07/21/17 19:00 07:00 Intake Total 355 ml Balance 355 ml IV Total 355 ml # Bowel Movements 1 General Appearance: no acute distress HEENT: atraumatic Respiratory/Chest: lungs clear Cardiovascular: normal rate Microbiology Date/Time Source Procedure Growth Status 07/18/17 21:20 Nasal Nares MRSA Culture - Final NO METHICILLIN RESISTANT STAPH AUREUS... Complete 07/18/17 15:44 Urine,Clean Catch Urine Culture - Final Klebsiella Pneumoniae Complete 07/18/17 21:20 Rectum VRE Culture - Final NO VANCOMYCIN RESISTANT ENTEROCOCCUS ... Complete Laboratory Tests 07/21/17 04:20: White Blood Count 7.2, Red Blood Count 3.65L, Hemoglobin 10.1L, Hematocrit 30.7L , Mean Corpuscular Volume 84, Mean Corpuscular Hemoglobin 27.6, Mean Corpuscular Hemoglobin Concent 32.8, Red Cell Distribution Width 14.5, Platelet Count 283, Mean Platelet Volume 5.7L, Neutrophils (%) (Auto) , Lymphocytes (%) ( Auto) , Monocytes (%) (Auto) , Eosinophils (%) (Auto) , Basophils (%) (Auto) , Prothrombin Time 41.1H, Prothromb Time International Ratio 3.9H, Sodium Level 130L, Potassium Level 4.8, Chloride Level 94L, Carbon Dioxide Level 27, Anion Gap 9, Blood Urea Nitrogen 57H, Creatinine 2.1H, Estimat Glomerular Filtration Rate , Glucose Level 275H, Calcium Level 8.6, Random Vancomycin Level 9.7 Current Medications Medications (Trade) Dose Ordered Sig/Tam Route PRN Reason Start Time Stop Time Status Last Admin Dose Admin Acetaminophen (Tylenol) 650 mg Q6H PRN ORAL Mild Pain/Temp > 100.5 07/18/17 22:30 08/17/17 22:29 Atorvastatin Calcium (Lipitor) 10 mg QHS ORAL 07/18/17 21:00 08/17/17 20:59 07/20/17 20:27 Ceftriaxone Sodium 1 gm/ Sodium Chloride 55 ml @ 110 mls/hr QHS IVPB 07/20/17 21:00 07/27/17 20:59 07/20/17 20:26 Dextrose (Dextrose 50%) STAT PRN IV Hypoglycemia 07/18/17 18:30 08/17/17 18:29 Ipratropium [place] (Atrovent) 500 mcg Q6HRT HHN 07/19/17 13:00 07/24/17 12:59 07/21/17 12:09 Levalbuterol HCl (Xopenex) 1.25 mg TIDRT HHN 07/19/17 13:00 07/24/17 12:59 07/21/17 12:09 Levothyroxine Sodium (Synthroid) 75 mcg DAILY@0630 ORAL 07/19/17 06:30 08/18/17 06:29 07/21/17 05:39 Linezolid 300 ml @ 300 mls/hr Q12HR IVPB 07/20/17 21:00 07/27/17 20:59 07/21/17 08:48 Metoprolol Tartrate (Lopressor) 50 mg BID ORAL 07/21/17 18:00 08/18/17 14:59 Pantoprazole (Protonix) 40 mg DAILY ORAL 07/19/17 12:00 08/18/17 11:59 07/21/17 08:48 Sitagliptin Phosphate (Januvia) 25 mg ACBREAKFAST ORAL 07/21/17 06:30 08/20/17 06:29 07/21/17 05:39 Sodium Chloride 1,000 ml @ 50 mls/hr Q20H IV 07/21/17 16:00 07/22/17 15:59 Warfarin Sodium (Coumadin per pharmacy) 1 ea DAILY PRN MISC Per rx protocol 07/18/17 18:30 08/17/17 18:29 MAE DIEGO Jul 21, 2017 15:40
[2017-07-21 16:00] VITALS: BP 122/71
[2017-07-21 20:00] VITALS: BP 115/78
[2017-07-21] MEDS: cefTRIAXone 1 GM in NS 55 ML IVPB SCH (20:34)
--- NOTE | 2017-07-21 21:02 | Consultation ---
DATE OF CONSULTATION: 07/21/2017 CARDIOLOGY CONSULTATION CONSULTING PHYSICIAN: Saul Lindsay M.D. REFERRING PHYSICIAN: Mihai Pride M.D. REASON FOR CONSULTATION: Management of atrial fibrillation. HISTORY OF PRESENT ILLNESS: The patient is a very pleasant 76-year-old lady, who presents to the hospital with shortness of breath that has been going on for about a day. The patient was given nebulizer by EMS en route to the hospital. On arrival to the hospital, blood pressure was 140/80 mmHg. Her oxygenation was 98% on non-rebreather mask. A 12-lead electrocardiogram done in the emergency department revealed atrial fibrillation with rapid ventricular response. The patient was admitted to [facility] for further evaluation and management. PAST MEDICAL HISTORY: Obstructive sleep apnea, COPD, paroxysmal atrial fibrillation, diabetes mellitus type 2, and anemia. PAST SURGICAL HISTORY: None. MEDICATIONS: Including Synthroid 0.075 mg p.o. daily, Lasix 40 mg p.o. daily, metformin 500 mg twice daily, Toprol-XL 12.5 mg daily, singular 10 mg p.o. daily, Januvia 100 mg p.o. daily, Diovan 80 mg p.o. daily, Coumadin 5 mg p.o. daily, DuoNeb inhaler q.6 h. p.r.n. shortness of breath, Advair one puff twice daily, and Xalatan eyedrops 0.05% in both eyes nightly. ALLERGIES: Aspirin. SOCIAL HISTORY: Denies any tobacco, but has been exposed to cigarettes from her . She lives in an assisted living facility with a caregiver. She has three daughters, two of them out of state. FAMILY HISTORY: No premature coronary artery disease in the first-degree relatives. REVIEW OF SYSTEMS: HEENT: Denies any headache, diplopia, or blurred vision. CONSTITUTIONAL: Denies any fever, chills, night sweats, or weight loss. CARDIOVASCULAR: Denies any chest pain, however, she has shortness of breath. Denies any PND, orthopnea, leg swelling, or syncope. PULMONARY: Denies any cough, hemoptysis, or wheezing. GASTROINTESTINAL: Denies any nausea, vomiting, diarrhea, constipation, abdominal pain, or GI bleeding. GENITOURINARY: Denies any hematuria, dysuria, or incontinence. NEUROLOGY: Denies any motor dysfunction, sensory deficit, or altered speech. MUSCULOSKELETAL: Pretty much wheelchair bound and not walking according to the caregiver. PHYSICAL EXAMINATION: VITAL SIGNS: Blood pressure at the time of arrival to the emergency department was 140/80, respirations 20, pulse was 130, temperature 98.0 degrees Fahrenheit, and O2 saturation on non-rebreather mask was 98%. GENERAL: The patient is a very unfortunate 76-year-old female, in no apparent respiratory distress, speaking to me in Farsi language, very well coherent. HEENT: Atraumatic and normocephalic. Anicteric. Pupils are equal, round, and reactive to light and accommodation. Extraocular muscles intact. NECK: JVP cannot be assessed as she is in a sitting position. No carotid bruit. Carotid upstrokes 2+ bilaterally. CARDIOVASCULAR: Normal S1 and S2. Irregularly irregular rhythm. A 2/6 mid systolic murmur at the left sternal border. PMI is at fourth intercostal space in the midclavicular line. LUNGS: Diminished breath sounds in both lungs. Did not appreciate any crackles. ABDOMEN: Obese. No hepatosplenomegaly. Positive bowel sounds. EXTREMITIES: No evidence of edema, clubbing, or cyanosis. LABORATORY FINDINGS: WBC was 11.1, hemoglobin 10.4, hematocrit 32.9, and platelet count is 254,000. Sodium was 136, potassium is 4.3, chloride is 101, bicarbonate is 27, BUN of 23, and creatinine 1.3. Glucose is 152. Calcium is 9.6. Troponin I was 0.15. ProBNP was 10,940. INR was 1.6. Chest x-ray showed cardiomegaly with evidence of mild congestive heart failure. A 2D echocardiography was significant for normal LV systolic function with LVEF of 60% to 65% and moderate LVH. There was a small pericardial effusion. No signs of tamponade. Severe biatrial enlargement. There was mitral annular calcification leading to mitral valve stenosis with mean pressure gradient around 8 mm consistent with moderate mitral stenosis. A 12-lead electrocardiogram, atrial fibrillation at the rate of [address] and T-wave abnormalities. ASSESSMENT AND PLAN: The patient is a very unfortunate 76-year-old female seen in Cardiology consultation at the request of Dr. Pride. 1. Acute on chronic diastolic heart failure possibly due to atrial fibrillation with rapid ventricular response. I would like to decrease the rate with the use of digoxin as well as optimization of the beta-blockers. 2. Dyspnea could be multifactorial in combination of chronic obstructive pulmonary disease and congestive heart failure. From the pulmonary standpoint, the patient may benefit from bronchodilators, possibly steroids. Oxygen and pulmonary toilet and inhalers. 3. Paroxysmal atrial fibrillation. According to Dr. Pride, we will try to rate control with beta-timbo. I would like to add digoxin to control the rate a little bit better. We will continue with warfarin therapy to keep the INR between 2 and 3. 4. Moderate mitral stenosis due to mitral annular calcification and mitral leaflet calcification. I would like to thank, Dr. Pride, for allowing me to participate in the care of this most pleasant patient. Saul Lindsay M.D. DR: BIENVENIDO JOB#: [id number] CC:
[2017-07-22] VITALS: BP 124/72
[2017-07-22] MEDS: Ipratropium 0.02% Inh Soln 2.5ml UD HHN SCH ×4 (01:30→18:52)
[2017-07-22 04:00] VITALS: BP 111/70
[2017-07-22 05:49] LABS: BASOPHILS % (AUTO) 0.6 % (0.0-2.0); EOSINOPHILS % (AUTO) 0.1 % (0.0-3.0); HEMATOCRIT 31.6 % (37.0-47.0); HEMOGLOBIN 10.2 G/DL (12.0-16.0); LYMPHOCYTES % (AUTO) 19.6 % (20.0-45.0); MEAN CORPUSCULAR VOLUME 84 FL (80-99); MONOCYTES % (AUTO) 7.3 % (1.0-10.0); NEUTROPHILS % (AUTO) 72.5 % (45.0-75.0); PLATELET COUNT 279 K/UL (150-450); RED BLOOD COUNT 3.75 M/UL (4.20-5.40); RED CELL DISTRIBUTION WIDTH 14.1 % (11.6-14.8)
[2017-07-22 06:01] LABS: ANION GAP 9 mmol/L (5-15); BLOOD UREA NITROGEN 60 mg/dL (7-18); CALCIUM 8.5 MG/DL (8.5-10.1); CARBON DIOXIDE 26 MMOL/L (21-32); CHLORIDE 94 MMOL/L (98-107); CREATININE 2.3 MG/DL (0.55-1.30); POTASSIUM 4.8 MMOL/L (3.5-5.1); SODIUM 129 MMOL/L (136-145)
[2017-07-22 06:05] LABS: INR 2.8 (0.9-1.1)
[2017-07-22] MEDS: sitaGLIPtin 25mg tab ORAL SCH (06:07)
[2017-07-22 08:00] VITALS: BP 99/57
[2017-07-22] MEDS: Levalbuterol Inh UD 1.25mg/0.5ml HHN SCH ×3 (08:02→18:52)
[2017-07-22] MEDS: Metoprolol 25mg tab ORAL SCH ×2 (08:42→18:30)
[2017-07-22 12:00] VITALS: BP 120/79
--- NOTE | 2017-07-22 14:25 | Infectious Diseases Prog Note ---
Assessment/Plan Problems: (1) Sepsis Assessment & Plan: with coag negative staphylococcus spp grew out of four bottles , most likely real, source? continue zyvox for now , repeated blood culture to confirm clearance is negative so far , 2D ECH didn't show any vegetations to suggest endocarditis . will need two weeks of iv antibiotics for her bacteremia since she cleared it quickly (2) UTI (urinary tract infection) Assessment & Plan: with klebsiella pneumonia , continue ceftriaxon for 7 days (3) Respiratory distress Assessment & Plan: CHF VS COPD/ASTHMA exacerbation , continue inhalers and diuretics as needed (4) Asthma exacerbation Assessment & Plan: continue inhalers, taper steroids, continue antibiotics , monitor CXR (5) WENDY (acute kidney injury) Assessment & Plan: keep off vancomycin to avoid further nephrotoxicity , monitor UOP, nephrology is following Subjective Constitutional: Reports: no symptoms HEENT: Reports: no symptoms Respiratory: Reports: dry cough Breasts: Reports: no symptoms Cardiovascular: Reports: no symptoms Gastrointestinal/Abdominal: Reports: no symptoms Genitourinary: Reports: no symptoms Neurologic: Reports: no symptoms Psychiatric: Reports: no symptoms Skin: Reports: no symptoms Endocrine: Reports: no symptoms Hematologic: Reports: no symptoms Musculoskeletal: Reports: no symptoms Allergies: Coded Allergies: No Known Allergies (Unverified , 07/18/17) Objective Vital Signs Last 24 Hour Vital Signs Date Time Temp Pulse Resp B/P (MAP) Pulse Ox O2 Delivery O2 Flow Rate FiO2 07/22/17 13:57 74 20 97 Nasal Cannula 2.0 28 07/22/17 12:00 97.6 74 20 120/79 100 Nasal Cannula 2.0 97.6 07/22/17 11:46 71 07/22/17 08:42 68 99/57 07/22/17 08:12 93 15 97 Nasal Cannula 2.0 28 07/22/17 08:02 71 16 95 Nasal Cannula 2.0 28 07/22/17 08:01 Nasal Cannula 2.0 28 07/22/17 08:00 97.4 68 21 99/57 98 Room Air 97.4 07/22/17 08:00 95 Nasal Cannula 2.0 28 07/22/17 07:45 68 07/22/17 04:00 97.4 86 21 111/70 94 Room Air 97.4 07/22/17 03:56 77 2/23/18 01:39 82 18 99 Nasal Cannula 2.0 28 07/22/17 01:30 81 18 96 Nasal Cannula 2.0 28 07/22/17 00:00 95 07/22/17 00:00 97.8 86 15 124/72 95 Room Air 97.8 07/21/17 20:08 104 07/21/17 20:00 97.9 75 18 115/78 97 Room Air 97.9 07/21/17 19:26 106 18 99 Nasal Cannula 2.0 28 07/21/17 19:17 95 Nasal Cannula 2.0 28 07/21/17 19:17 105 18 95 Nasal Cannula 2.0 28 07/21/17 19:17 Nasal Cannula 2.0 28 07/21/17 17:54 116 122/71 07/21/17 16:00 116 07/21/17 16:00 97.5 112 20 122/71 95 Room Air 97.5 07/21/17 15:13 112 Height (Feet): 5 Weight (Pounds): 237 General Appearance: WD/WN, no acute distress HEENT: normocephalic, atraumatic, anicteric, mucous membranes moist Respiratory/Chest: chest wall non-tender, no respiratory distress, no accessory muscle use, decreased breath sounds, expiratory wheezing Cardiovascular: normal peripheral pulses, normal rate, regular rhythm, no gallop/murmur, no JVD Abdomen: normal bowel sounds, soft, non tender, no organomegaly, non distended , no mass, no scars Extremities: no cyanosis, no clubbing Skin: no rash, no lesions, no ulcers Neurologic/Psychiatric: alert, oriented x 3, responsive Lymphatic: no neck adenopathy, no groin adenopathy Microbiology Date/Time Source Procedure Growth Status 07/20/17 16:35 Blood Blood Culture - Preliminary NO GROWTH AFTER 24 HOURS Resulted 07/20/17 16:30 Blood Blood Culture - Preliminary NO GROWTH AFTER 24 HOURS Resulted Laboratory Tests Test 07/22/17 04:55 White Blood Count 8.0 K/UL (4.8-10.8) Red Blood Count 3.75 M/UL (4.20-5.40) L Hemoglobin 10.2 G/DL (12.0-16.0) L Hematocrit 31.6 % (37.0-47.0) L Mean Corpuscular Volume 84 FL (80-99) Mean Corpuscular Hemoglobin 27.3 PG (27.0-31.0) Mean Corpuscular Hemoglobin Concent 32.4 G/DL (32.0-36.0) Red Cell Distribution Width 14.1 % (11.6-14.8) Platelet Count 279 K/UL (150-450) Mean Platelet Volume 5.9 FL (6.5-10.1) L Neutrophils (%) (Auto) 72.5 % (45.0-75.0) Lymphocytes (%) (Auto) 19.6 % (20.0-45.0) L Monocytes (%) (Auto) 7.3 % (1.0-10.0) Eosinophils (%) (Auto) 0.1 % (0.0-3.0) Basophils (%) (Auto) 0.6 % (0.0-2.0) Prothrombin Time 29.7 SEC (9.30-11.50) H Prothromb Time International Ratio 2.8 (0.9-1.1) H Sodium Level 129 MMOL/L (136-145) L Potassium Level 4.8 MMOL/L (3.5-5.1) Chloride Level 94 MMOL/L (98-107) L Carbon Dioxide Level 26 MMOL/L (21-32) Anion Gap 9 mmol/L (5-15) Blood Urea Nitrogen 60 mg/dL (7-18) H Creatinine 2.3 MG/DL (0.55-1.30) H Estimat Glomerular Filtration Rate mL/min (>60) Glucose Level 266 MG/DL (74-106) H Calcium Level 8.5 MG/DL (8.5-10.1) Current Medications Medications (Trade) Dose Ordered Sig/Tam Route PRN Reason Start Time Stop Time Status Last Admin Dose Admin Acetaminophen (Tylenol) 650 mg Q6H PRN ORAL Mild Pain/Temp > 100.5 07/18/17 22:30 08/17/17 22:29 Atorvastatin Calcium (Lipitor) 10 mg QHS ORAL 07/18/17 21:00 08/17/17 20:59 07/21/17 20:33 Ceftriaxone Sodium 1 gm/ Sodium Chloride 55 ml @ 110 mls/hr QHS IVPB 07/20/17 21:00 07/27/17 20:59 07/21/17 20:34 Dextrose (Dextrose 50%) STAT PRN IV Hypoglycemia 07/18/17 18:30 08/17/17 18:29 Ipratropium [place] (Atrovent) 500 mcg Q6HRT [facility] 07/19/17 13:00 07/24/17 12:59 07/22/17 13:57 Levalbuterol HCl (Xopenex) 1.25 mg TIDRT [facility] 07/19/17 13:00 07/24/17 12:59 07/22/17 13:57 Levothyroxine Sodium (Synthroid) 75 mcg DAILY@0630 ORAL 07/19/17 06:30 08/18/17 06:29 07/22/17 06:07 Linezolid 300 ml @ 300 mls/hr Q12HR IVPB 07/20/17 21:00 07/27/17 20:59 07/22/17 08:42 Metoprolol Tartrate (Lopressor) 50 mg BID ORAL 07/21/17 18:00 08/18/17 14:59 07/21/17 17:54 Pantoprazole (Protonix) 40 mg DAILY ORAL 07/19/17 12:00 08/18/17 11:59 07/22/17 08:42 Sitagliptin Phosphate (Januvia) 25 mg ACBREAKFAST ORAL 07/21/17 06:30 08/20/17 06:29 07/22/17 06:07 Sodium Chloride 1,000 ml @ 50 mls/hr Q20H IV 07/21/17 16:00 07/22/17 15:59 07/22/17 12:26 Warfarin Sodium (Coumadin per pharmacy) 1 ea DAILY PRN MISC Per rx protocol 07/18/17 18:30 08/17/17 18:29 Warfarin Sodium (Coumadin) 2.5 mg COUMADIN ONCE ORAL 07/22/17 17:00 07/22/17 17:01 Juan Foy M.D. Jul 22, 2017 14:25
--- NOTE | 2017-07-22 14:42 | Pulmonology Progress Note ---
Assessment/Plan Assessment/Plan 1. Acute respiratory failure requiring BiPAP, now improved. 2. Mild congestive heart failure. 3. Chronic asthma with exacerbation, improved 4. Obstructive sleep apnea, CPAP at night 5. Urinary tract infection, Klebsiella 6. Sepsis with MOLD CLOSER in 4 of 4 BC 7. Diabetes. 8. Hypothyroidism 9. WENDY, slowly worse 10. Hyponatremia renal fcn worse, Na low abx per ID for MOLD CLOSER bacteremia no resp distress, off O2 tolerated CPAP at night cont HHN d/w dtr Subjective ROS Limited/Unobtainable: Yes Allergies: Coded Allergies: No Known Allergies (Unverified , 07/18/17) Objective Last 24 Hour Vital Signs Date Time Temp Pulse Resp B/P (MAP) Pulse Ox O2 Delivery O2 Flow Rate FiO2 07/22/17 13:57 74 20 97 Nasal Cannula 2.0 28 07/22/17 12:00 97.6 74 20 120/79 100 Nasal Cannula 2.0 97.6 07/22/17 11:46 71 07/22/17 08:42 68 99/57 07/22/17 08:12 93 15 97 Nasal Cannula 2.0 28 07/22/17 08:02 71 16 95 Nasal Cannula 2.0 28 07/22/17 08:01 Nasal Cannula 2.0 28 07/22/17 08:00 97.4 68 21 99/57 98 Room Air 97.4 07/22/17 08:00 95 Nasal Cannula 2.0 28 07/22/17 07:45 68 07/22/17 04:00 97.4 86 21 111/70 94 Room Air 97.4 07/22/17 03:56 77 07/22/17 01:39 82 18 99 Nasal Cannula 2.0 28 07/22/17 01:30 81 18 96 Nasal Cannula 2.0 28 07/22/17 00:00 95 07/22/17 00:00 97.8 86 15 124/72 95 Room Air 97.8 07/21/17 20:08 104 07/21/17 20:00 97.9 75 18 115/78 97 Room Air 97.9 07/21/17 19:26 106 18 99 Nasal Cannula 2.0 28 07/21/17 19:17 95 Nasal Cannula 2.0 28 07/21/17 19:17 105 18 95 Nasal Cannula 2.0 28 2/22/18 19:17 Nasal Cannula 2.0 28 07/21/17 17:54 116 122/71 07/21/17 16:00 116 07/21/17 16:00 97.5 112 20 122/71 95 Room Air 97.5 07/21/17 15:13 112 Intake and Output 07/21/17 07/22/17 19:00 07:00 Intake Total 890 ml 1010 ml Output Total 300 ml Balance 590 ml 1010 ml Intake Oral 540 ml IV Total 350 ml 1010 ml Output Urine Total 300 ml # Voids 1 # Bowel Movements 2 Objective overweight General Appearance: no acute distress HEENT: anicteric Respiratory/Chest: expiratory wheezing Cardiovascular: normal rate, irregularly irregular Abdomen: soft, non tender Microbiology Date/Time Source Procedure Growth Status 07/20/17 16:35 Blood Blood Culture - Preliminary NO GROWTH AFTER 24 HOURS Resulted 07/20/17 16:30 Blood Blood Culture - Preliminary NO GROWTH AFTER 24 HOURS Resulted Laboratory Tests 07/22/17 04:55: White Blood Count 8.0, Red Blood Count 3.75L, Hemoglobin 10.2L, Hematocrit 31.6L , Mean Corpuscular Volume 84, Mean Corpuscular Hemoglobin 27.3, Mean Corpuscular Hemoglobin Concent 32.4, Red Cell Distribution Width 14.1, Platelet Count 279, Mean Platelet Volume 5.9L, Neutrophils (%) (Auto) 72.5, Lymphocytes ( %) (Auto) 19.6L, Monocytes (%) (Auto) 7.3, Eosinophils (%) (Auto) 0.1, Basophils (%) (Auto) 0.6, Prothrombin Time 29.7H, Prothromb Time International Ratio 2.8H, Sodium Level 129L, Potassium Level 4.8, Chloride Level 94L, Carbon Dioxide Level 26, Anion Gap 9, Blood Urea Nitrogen 60H, Creatinine 2.3H, Estimat Glomerular Filtration Rate , Glucose Level 266H, Calcium Level 8.5 Current Medications Medications (Trade) Dose Ordered Sig/Tam Route PRN Reason Start Time Stop Time Status Last Admin Dose Admin Acetaminophen (Tylenol) 650 mg Q6H PRN ORAL Mild Pain/Temp > 100.5 07/18/17 22:30 08/17/17 22:29 Atorvastatin Calcium (Lipitor) 10 mg QHS ORAL 07/18/17 21:00 08/17/17 20:59 07/21/17 20:33 Ceftriaxone Sodium 1 gm/ Sodium Chloride 55 ml @ 110 mls/hr QHS IVPB 07/20/17 21:00 07/27/17 20:59 07/21/17 20:34 Dextrose (Dextrose 50%) STAT PRN IV Hypoglycemia 07/18/17 18:30 08/17/17 18:29 Ipratropium [place] (Atrovent) 500 mcg Q6HRT [facility] 07/19/17 13:00 07/24/17 12:59 07/22/17 13:57 Levalbuterol HCl (Xopenex) 1.25 mg TIDRT [facility] 07/19/17 13:00 07/24/17 12:59 07/22/17 13:57 Levothyroxine Sodium (Synthroid) 75 mcg DAILY@0630 ORAL 07/19/17 06:30 08/18/17 06:29 07/22/17 06:07 Linezolid 300 ml @ 300 mls/hr Q12HR IVPB 07/20/17 21:00 07/27/17 20:59 07/22/17 08:42 Metoprolol Tartrate (Lopressor) 50 mg BID ORAL 07/21/17 18:00 08/18/17 14:59 07/21/17 17:54 Pantoprazole (Protonix) 40 mg DAILY ORAL 07/19/17 12:00 08/18/17 11:59 07/22/17 08:42 Sitagliptin Phosphate (Januvia) 25 mg ACBREAKFAST ORAL 07/21/17 06:30 08/20/17 06:29 07/22/17 06:07 Sodium Chloride 1,000 ml @ 50 mls/hr Q20H IV 07/21/17 16:00 07/22/17 15:59 07/22/17 12:26 Warfarin Sodium (Coumadin per pharmacy) 1 ea DAILY PRN MISC Per rx protocol 07/18/17 18:30 08/17/17 18:29 Warfarin Sodium (Coumadin) 2.5 mg COUMADIN ONCE ORAL 07/22/17 17:00 07/22/17 17:01 MAE DIEGO Jul 22, 2017 14:42
[2017-07-22 16:00] VITALS: BP 114/62
[2017-07-22] MEDS ORDERED: Warfarin Sodium 2.5mg ORAL ONE (17:00)
--- NOTE | 2017-07-22 19:44 | General Progress Note ---
Assessment/Plan Assessment/Plan 1) CHF is better 2) UTI with sepsis due to Klesiella 3) ? staph bacteremia, ? source, R/O SBE 4) CopD exacerbation 5) WENDY worsening 6) A. Fib 7) some urinary retention Plan: check UA + urine protein to creat ratio Continue IV ATB's Will probably will need BISI Physical RX Will also check serum C3 and C4 and CH50 Will give 80 mg IV lasix x1 Check CXR tomorrow Labs in AM Subjective Allergies: Coded Allergies: No Known Allergies (Unverified , 07/18/17) Subjective She is on 2L O2 per NC, she did not have any urinary retention but today she had urinary retention now s/p limon catheter, creat is up to 2.3 post IV fluid administration Objective Last 24 Hour Vital Signs Date Time Temp Pulse Resp B/P (MAP) Pulse Ox O2 Delivery O2 Flow Rate FiO2 07/22/17 19:02 73 20 98 Nasal Cannula 2.0 28 07/22/17 18:52 72 18 92 Room Air 21 07/22/17 18:52 Nasal Cannula 2.0 28 07/22/17 18:52 92 Room Air 21 07/22/17 18:30 74 131/74 07/22/17 16:02 74 07/22/17 16:00 97.3 74 21 114/62 96 Nasal Cannula 2.0 97.3 07/22/17 14:07 71 20 98 Nasal Cannula 2.0 28 07/22/17 13:57 74 20 97 Nasal Cannula 2.0 28 07/22/17 12:00 97.6 74 20 120/79 100 Nasal Cannula 2.0 97.6 07/22/17 11:46 71 07/22/17 08:42 68 99/57 07/22/17 08:12 93 15 97 Nasal Cannula 2.0 28 07/22/17 08:02 71 16 95 Nasal Cannula 2.0 28 07/22/17 08:01 Nasal Cannula 2.0 28 07/22/17 08:00 97.4 68 21 99/57 98 Room Air 97.4 07/22/17 08:00 95 Nasal Cannula 2.0 28 07/22/17 07:45 68 07/22/17 04:00 97.4 86 21 111/70 94 Room Air 97.4 07/22/17 03:56 77 07/22/17 01:39 82 18 99 Nasal Cannula 2.0 28 07/22/17 01:30 81 18 96 Nasal Cannula 2.0 28 07/22/17 00:00 95 07/22/17 00:00 97.8 86 15 124/72 95 Room Air 97.8 07/21/17 20:08 104 07/21/17 20:00 97.9 75 18 115/78 97 Room Air 97.9 Intake and Output 07/21/17 07/22/17 19:00 07:00 Intake Total 890 ml 1010 ml Output Total 300 ml Balance 590 ml 1010 ml Intake Oral 540 ml IV Total 350 ml 1010 ml Output Urine Total 300 ml # Voids 1 # Bowel Movements 2 Laboratory Tests 07/22/17 04:55: White Blood Count 8.0, Red Blood Count 3.75L, Hemoglobin 10.2L, Hematocrit 31.6L , Mean Corpuscular Volume 84, Mean Corpuscular Hemoglobin 27.3, Mean Corpuscular Hemoglobin Concent 32.4, Red Cell Distribution Width 14.1, Platelet Count 279, Mean Platelet Volume 5.9L, Neutrophils (%) (Auto) 72.5, Lymphocytes ( %) (Auto) 19.6L, Monocytes (%) (Auto) 7.3, Eosinophils (%) (Auto) 0.1, Basophils (%) (Auto) 0.6, Prothrombin Time 29.7H, Prothromb Time International Ratio 2.8H, Sodium Level 129L, Potassium Level 4.8, Chloride Level 94L, Carbon Dioxide Level 26, Anion Gap 9, Blood Urea Nitrogen 60H, Creatinine 2.3H, Estimat Glomerular Filtration Rate , Glucose Level 266H, Calcium Level 8.5 Height (Feet): 5 Weight (Pounds): 237 General Appearance: WD/WN, no apparent distress, alert EENT: normal ENT inspection Cardiovascular: normal rate, regular rhythm Respiratory/Chest: chest wall non-tender, expiratory wheezing Abdomen: normal bowel sounds, non tender Edema: trace edema 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
[2017-07-22 20:00] VITALS: BP 131/74
--- NOTE | 2017-07-22 20:21 | Cardiology Progress Note ---
Assessment/Plan Problem List: (1) CHF exacerbation (2) Asthma exacerbation (3) Atrial fibrillation with rapid ventricular response (4) WENDY (acute kidney injury) Status: stable, progressing Status Narrative AF - persistent v permanent. Ventricular rates are controlled Moderate MS. CHF/ diastolic Assessment/Plan Continue anticoagulation for valvular AF, to maintain inr 2-3. Inr currently in therapeutic range Continue metoprolol for rate control Diurese prn for vol overload/ pulm congestion. Subjective ROS Limited/Unobtainable: Yes Subjective Cardiology for Dr. Lindsay Pt appears comfortable. Objective Last 24 Hour Vital Signs Date Time Temp Pulse Resp B/P (MAP) Pulse Ox O2 Delivery O2 Flow Rate FiO2 07/22/17 19:02 73 20 98 Nasal Cannula 2.0 28 07/22/17 18:52 72 18 92 Room Air 21 07/22/17 18:52 Nasal Cannula 2.0 28 07/22/17 18:52 92 Room Air 21 07/22/17 18:30 74 131/74 07/22/17 16:02 74 07/22/17 16:00 97.3 74 21 114/62 96 Nasal Cannula 2.0 97.3 07/22/17 14:07 71 20 98 Nasal Cannula 2.0 28 07/22/17 13:57 74 20 97 Nasal Cannula 2.0 28 07/22/17 12:00 97.6 74 20 120/79 100 Nasal Cannula 2.0 97.6 07/22/17 11:46 71 07/22/17 08:42 68 99/57 07/22/17 08:12 93 15 97 Nasal Cannula 2.0 28 07/22/17 08:02 71 16 95 Nasal Cannula 2.0 28 07/22/17 08:01 Nasal Cannula 2.0 28 07/22/17 08:00 97.4 68 21 99/57 98 Room Air 97.4 07/22/17 08:00 95 Nasal Cannula 2.0 28 07/22/17 07:45 68 07/22/17 04:00 97.4 86 21 111/70 94 Room Air 97.4 07/22/17 03:56 77 07/22/17 01:39 82 18 99 Nasal Cannula 2.0 28 07/22/17 01:30 81 18 96 Nasal Cannula 2.0 28 07/22/17 00:00 95 2/23/18 00:00 97.8 86 15 124/72 95 Room Air 97.8 General Appearance: WD/WN, no apparent distress, obese EENT: PERRL/EOMI Neck: supple, no JVD Rhythm: Afib Cardiovascular: normal rate, irregularly irregular Respiratory/Chest: lungs clear - clear anteriorly Abdomen: non tender, other - mild distension + BS Extremities: no swelling Intake and Output 07/21/17 07/22/17 19:00 07:00 Intake Total 890 ml 1010 ml Output Total 300 ml Balance 590 ml 1010 ml Intake Oral 540 ml IV Total 350 ml 1010 ml Output Urine Total 300 ml # Voids 1 # Bowel Movements 2 Laboratory Tests Test 07/22/17 04:55 White Blood Count 8.0 K/UL (4.8-10.8) Red Blood Count 3.75 M/UL (4.20-5.40) L Hemoglobin 10.2 G/DL (12.0-16.0) L Hematocrit 31.6 % (37.0-47.0) L Mean Corpuscular Volume 84 FL (80-99) Mean Corpuscular Hemoglobin 27.3 PG (27.0-31.0) Mean Corpuscular Hemoglobin Concent 32.4 G/DL (32.0-36.0) Red Cell Distribution Width 14.1 % (11.6-14.8) Platelet Count 279 K/UL (150-450) Mean Platelet Volume 5.9 FL (6.5-10.1) L Neutrophils (%) (Auto) 72.5 % (45.0-75.0) Lymphocytes (%) (Auto) 19.6 % (20.0-45.0) L Monocytes (%) (Auto) 7.3 % (1.0-10.0) Eosinophils (%) (Auto) 0.1 % (0.0-3.0) Basophils (%) (Auto) 0.6 % (0.0-2.0) Prothrombin Time 29.7 SEC (9.30-11.50) H Prothromb Time International Ratio 2.8 (0.9-1.1) H Sodium Level 129 MMOL/L (136-145) L Potassium Level 4.8 MMOL/L (3.5-5.1) Chloride Level 94 MMOL/L (98-107) L Carbon Dioxide Level 26 MMOL/L (21-32) Anion Gap 9 mmol/L (5-15) Blood Urea Nitrogen 60 mg/dL (7-18) H Creatinine 2.3 MG/DL (0.55-1.30) H Estimat Glomerular Filtration Rate mL/min (>60) Glucose Level 266 MG/DL (74-106) H Calcium Level 8.5 MG/DL (8.5-10.1) Complement C3 Pending Complement C4 Pending Total Complement (CH50) Pending Microbiology Date/Time Source Procedure Growth Status 07/20/17 16:35 Blood Blood Culture - Preliminary NO GROWTH AFTER 24 HOURS Resulted 07/20/17 16:30 Blood Blood Culture - Preliminary NO GROWTH AFTER 24 HOURS Resulted CHINMAY COOK Jul 22, 2017 20:21
[2017-07-22] MEDS: cefTRIAXone 1 GM in NS 55 ML IVPB SCH ×2 (21:00→21:50)
[2017-07-23] VITALS: BP 121/59
[2017-07-23] MEDS: Ipratropium 0.02% Inh Soln 2.5ml UD HHN SCH ×5 (01:00→23:48)
[2017-07-23 01:42] LABS: APPEARANCE,URINE CLEAR; BILIRUBIN, URINE NEGATIVE (NEGATIVE); COLOR,URINE PALE YELLOW; GLUCOSE, URINE (UA) NEGATIVE (NEGATIVE); KETONES,URINE NEGATIVE (NEGATIVE); LEUKOCYTE ESTERASE ,URINE NEGATIVE (NEGATIVE); NITRITE,URINE NEGATIVE (NEGATIVE); PH,URINE 5 (4.5-8.0); PROTEIN,URINE NEGATIVE (NEGATIVE); UROBILINOGEN,URINE NORMAL MG/DL (0.0-1.0)
[2017-07-23 04:00] VITALS: BP 118/61
[2017-07-23 05:37] LABS: BASOPHILS % (AUTO) 2.7 % (0.0-2.0); EOSINOPHILS % (AUTO) 0.2 % (0.0-3.0); HEMATOCRIT 31.4 % (37.0-47.0); HEMOGLOBIN 10.3 G/DL (12.0-16.0); LYMPHOCYTES % (AUTO) 25.3 % (20.0-45.0); MEAN CORPUSCULAR VOLUME 83 FL (80-99); NEUTROPHILS % (AUTO) 61.8 % (45.0-75.0); PLATELET COUNT 242 K/UL (150-450); RED BLOOD COUNT 3.77 M/UL (4.20-5.40); RED CELL DISTRIBUTION WIDTH 14.6 % (11.6-14.8); WHITE BLOOD COUNT 7.7 K/UL (4.8-10.8)
[2017-07-23 05:39] LABS: INR 2.1 (0.9-1.1)
[2017-07-23 05:54] LABS: ALANINE AMINOTRANSFERASE 68 U/L (12-78); ALBUMIN 2.8 G/DL (3.4-5.0); ALBUMIN/GLOBULIN RATIO 0.8 (1.0-2.7); ALKALINE PHOSPHATASE 51 U/L (46-116); ANION GAP 6 mmol/L (5-15); ASPARTATE AMINO TRANSFERASE 45 U/L (15-37); BILIRUBIN,TOTAL 0.3 MG/DL (0.2-1.0); BLOOD UREA NITROGEN 56 mg/dL (7-18); CALCIUM 8.4 MG/DL (8.5-10.1); CARBON DIOXIDE 32 MMOL/L (21-32); CHLORIDE 98 MMOL/L (98-107); POTASSIUM 3.2 MMOL/L (3.5-5.1); SODIUM 136 MMOL/L (136-145)
[2017-07-23] MEDS: sitaGLIPtin 25mg tab ORAL SCH (06:30)
[2017-07-23] MEDS: Levalbuterol Inh UD 1.25mg/0.5ml HHN SCH ×3 (06:44→19:39)
[2017-07-23 08:00] VITALS: BP 99/57
--- NOTE | 2017-07-23 09:16 | Diagnostic Imaging Report ---
Indication: Reason For Exam: COUGH Technique: XRAY Chest 1v. Comparison: 07/20/2017 Findings: The cardiomediastinal silhouette is unchanged. No new infiltrates are identified. Impression: Cardiomegaly. Persistent mild congestive change. No significant change from prior examination.
[2017-07-23] MEDS: Metoprolol 25mg tab ORAL SCH ×2 (09:20→17:26)
[2017-07-23] MEDS ORDERED: Potassium Chloride 40 MEQ in Sodium Chloride 500ML 550 ML IVPB ONE (11:00)
--- NOTE | 2017-07-23 11:52 | Cardiology Progress Note ---
Assessment/Plan Problem List: (1) CHF exacerbation (2) Asthma exacerbation (3) Atrial fibrillation with rapid ventricular response (4) WENDY (acute kidney injury) Status: stable, unchanged Status Narrative AF - persistent v permanent. Ventricular rates are controlled Moderate MS/ ? CHF/ diastolic Hypokalemia - due to diuretics. Prerenal azotemia Dementia Assessment/Plan Continue anticoagulation for valvular AF, to maintain inr 2-3. Inr currently in therapeutic range Continue metoprolol for rate control Supplement K Would hold further diuretics, as pt developing prerenal azotemia. Follow i/os, wts and recheck labs in am Subjective ROS Limited/Unobtainable: Yes Subjective Cardiology for Dr. Lindsay Mrs. Galvez is lethargic this am. Events noted. Objective Last 24 Hour Vital Signs Date Time Temp Pulse Resp B/P (MAP) Pulse Ox O2 Delivery O2 Flow Rate FiO2 07/23/17 09:20 70 98/57 07/23/17 08:00 78 07/23/17 08:00 87.8 88 20 99/57 99 Nasal Cannula 2.0 87.8 07/23/17 06:57 73 14 100 Nasal Cannula 2.0 28 07/23/17 06:46 Nasal Cannula 2.0 28 07/23/17 06:46 100 Nasal Cannula 28 07/23/17 06:44 71 14 100 Nasal Cannula 2.0 28 07/23/17 04:00 97.7 73 14 118/61 97 Nasal Cannula 2.0 97.7 07/23/17 04:00 63 07/23/17 01:08 78 20 99 Nasal Cannula 2.0 28 07/23/17 00:58 82 18 97 Nasal Cannula 2.0 28 07/23/17 00:00 69 07/23/17 00:00 97.7 71 14 121/59 98 Nasal Cannula 3.0 97.7 07/22/17 20:00 97.5 74 18 131/74 98 Nasal Cannula 2.0 97.5 07/22/17 20:00 76 07/22/17 19:02 73 20 98 Nasal Cannula 2.0 28 07/22/17 18:52 72 18 92 Room Air 21 07/22/17 18:52 Nasal Cannula 2.0 28 07/22/17 18:52 92 Room Air 21 07/22/17 18:30 74 131/74 07/22/17 16:02 74 07/22/17 16:00 97.3 74 21 114/62 96 Nasal Cannula 2.0 97.3 07/22/17 14:07 71 20 98 Nasal Cannula 2.0 28 07/22/17 13:57 74 20 97 Nasal Cannula 2.0 28 07/22/17 12:00 97.6 74 20 120/79 100 Nasal Cannula 2.0 97.6 07/22/17 11:46 71 General Appearance: WD/WN, lethargic, obese EENT: PERRL/EOMI Neck: supple, no JVD Rhythm: Afib Cardiovascular: normal rate, no gallop/murmur, irregularly irregular Respiratory/Chest: other - dec BS. no rales Abdomen: normal bowel sounds, non tender, soft, other - mild distension Extremities: trace edema Intake and Output 07/22/17 07/23/17 19:00 07:00 Intake Total 1300 ml 355 ml Output Total 550 ml 2850 ml Balance 750 ml -2495 ml Intake Oral 600 ml IV Total 700 ml 355 ml Output Urine Total 550 ml 2850 ml # Bowel Movements 3 1 Laboratory Tests Test 07/23/17 01:00 07/23/17 04:05 Urine Color Pale yellow Urine Appearance Clear Urine pH 5 (4.5-8.0) Urine Specific [place] 1.010 (1.005-1.035) Urine Protein Negative (NEGATIVE) Urine Glucose (UA) Negative (NEGATIVE) Urine Ketones Negative (NEGATIVE) Urine Occult Blood 1+ (NEGATIVE) H Urine Nitrite Negative (NEGATIVE) Urine Bilirubin Negative (NEGATIVE) Urine Urobilinogen Normal MG/DL (0.0-1.0) Urine Leukocyte Esterase Negative (NEGATIVE) Urine RBC 0-2 /HPF (0 - 2) Urine WBC 0-2 /HPF (0 - 2) Urine Squamous Epithelial Cells Occasional /LPF Urine Bacteria Occasional /HPF (NONE) Urine Random Total Protein 2 MG/DL (< 11.9) Urine Creatinine 5.7 MG/DL (30.0-125.0) L White Blood Count 7.7 K/UL (4.8-10.8) Red Blood Count 3.77 M/UL (4.20-5.40) L Hemoglobin 10.3 G/DL (12.0-16.0) L Hematocrit 31.4 % (37.0-47.0) L Mean Corpuscular Volume 83 FL (80-99) Mean Corpuscular Hemoglobin 27.3 PG (27.0-31.0) Mean Corpuscular Hemoglobin Concent 32.8 G/DL (32.0-36.0) Red Cell Distribution Width 14.6 % (11.6-14.8) Platelet Count 242 K/UL (150-450) Mean Platelet Volume 6.1 FL (6.5-10.1) L Neutrophils (%) (Auto) 61.8 % (45.0-75.0) Lymphocytes (%) (Auto) 25.3 % (20.0-45.0) Monocytes (%) (Auto) 10.0 % (1.0-10.0) Eosinophils (%) (Auto) 0.2 % (0.0-3.0) Basophils (%) (Auto) 2.7 % (0.0-2.0) H Prothrombin Time 22.2 SEC (9.30-11.50) H Prothromb Time International Ratio 2.1 (0.9-1.1) H Sodium Level 136 MMOL/L (136-145) Potassium Level 3.2 MMOL/L (3.5-5.1) L Chloride Level 98 MMOL/L (98-107) Carbon Dioxide Level 32 MMOL/L (21-32) Anion Gap 6 mmol/L (5-15) Blood Urea Nitrogen 56 mg/dL (7-18) H Creatinine 2.0 MG/DL (0.55-1.30) H Estimat Glomerular Filtration Rate mL/min (>60) Glucose Level 196 MG/DL (74-106) H Calcium Level 8.4 MG/DL (8.5-10.1) L Total Bilirubin 0.3 MG/DL (0.2-1.0) Aspartate Amino Transf (AST/SGOT) 45 U/L (15-37) H Alanine Aminotransferase (ALT/SGPT) 68 U/L (12-78) Alkaline Phosphatase 51 U/L (46-116) Total Protein 6.2 G/DL (6.4-8.2) L Albumin 2.8 G/DL (3.4-5.0) L Globulin 3.4 g/dL Albumin/Globulin Ratio 0.8 (1.0-2.7) L Microbiology Date/Time Source Procedure Growth Status 2/21/18 16:35 Blood Blood Culture - Preliminary NO GROWTH AFTER 48 HOURS Resulted 07/20/17 16:30 Blood Blood Culture - Preliminary NO GROWTH AFTER 48 HOURS Resulted CHINMAY COOK Jul 23, 2017 11:52
[2017-07-23 12:00] VITALS: BP 120/63
--- NOTE | 2017-07-23 12:59 | Pulmonology Progress Note ---
Assessment/Plan Assessment/Plan 1. Acute respiratory failure requiring BiPAP, now improved. 2. Mild congestive heart failure. 3. Chronic asthma with exacerbation, improved 4. Obstructive sleep apnea, CPAP at night 5. Urinary tract infection, Klebsiella 6. Sepsis with [employer] in 4 of 4 BC 7. Diabetes. 8. Hypothyroidism 9. WENDY, slowly worse 10. Hyponatremia Subjective ROS Limited/Unobtainable: No Allergies: Coded Allergies: No Known Allergies (Unverified , 07/18/17) Objective Last 24 Hour Vital Signs Date Time Temp Pulse Resp B/P (MAP) Pulse Ox O2 Delivery O2 Flow Rate FiO2 07/23/17 12:00 97.2 77 17 120/63 99 Nasal Cannula 2.0 97.2 07/23/17 09:20 70 98/57 07/23/17 08:00 78 07/23/17 08:00 87.8 88 20 99/57 99 Nasal Cannula 2.0 87.8 07/23/17 06:57 73 14 100 Nasal Cannula 2.0 28 07/23/17 06:46 Nasal Cannula 2.0 28 07/23/17 06:46 100 Nasal Cannula 28 07/23/17 06:44 71 14 100 Nasal Cannula 2.0 28 07/23/17 04:00 97.7 73 14 118/61 97 Nasal Cannula 2.0 97.7 07/23/17 04:00 63 07/23/17 01:08 78 20 99 Nasal Cannula 2.0 28 07/23/17 00:58 82 18 97 Nasal Cannula 2.0 28 07/23/17 00:00 69 07/23/17 00:00 97.7 71 14 121/59 98 Nasal Cannula 3.0 97.7 07/22/17 20:00 97.5 74 18 131/74 98 Nasal Cannula 2.0 97.5 07/22/17 20:00 76 07/22/17 19:02 73 20 98 Nasal Cannula 2.0 28 07/22/17 18:52 72 18 92 Room Air 21 07/22/17 18:52 Nasal Cannula 2.0 28 07/22/17 18:52 92 Room Air 21 07/22/17 18:30 74 131/74 07/22/17 16:02 74 07/22/17 16:00 97.3 74 21 114/62 96 Nasal Cannula 2.0 97.3 07/22/17 14:07 71 20 98 Nasal Cannula 2.0 28 07/22/17 13:57 74 20 97 Nasal Cannula 2.0 28 Intake and Output 07/22/17 07/23/17 19:00 07:00 Intake Total 1300 ml 355 ml Output Total 550 ml 2850 ml Balance 750 ml -2495 ml Intake Oral 600 ml IV Total 700 ml 355 ml Output Urine Total 550 ml 2850 ml # Bowel Movements 3 1 Microbiology Date/Time Source Procedure Growth Status 07/20/17 16:35 Blood Blood Culture - Preliminary NO GROWTH AFTER 48 HOURS Resulted 07/20/17 16:30 Blood Blood Culture - Preliminary NO GROWTH AFTER 48 HOURS Resulted Laboratory Tests 07/23/17 01:00: Urine Color Pale yellow, Urine Appearance Clear, Urine pH 5, Urine Specific [place] 1.010, Urine Protein Negative, Urine Glucose (UA) Negative, Urine Ketones Negative, Urine Occult Blood 1+H, Urine Nitrite Negative, Urine Bilirubin Negative, Urine Urobilinogen Normal, Urine Leukocyte Esterase Negative , Urine RBC 0-2, Urine WBC 0-2, Urine Squamous Epithelial Cells Occasional, Urine Bacteria Occasional, Urine Random Total Protein 2, Urine Creatinine 5.7L 07/23/17 04:05: White Blood Count 7.7, Red Blood Count 3.77L, Hemoglobin 10.3L, Hematocrit 31.4L , Mean Corpuscular Volume 83, Mean Corpuscular Hemoglobin 27.3, Mean Corpuscular Hemoglobin Concent 32.8, Red Cell Distribution Width 14.6, Platelet Count 242, Mean Platelet Volume 6.1L, Neutrophils (%) (Auto) 61.8, Lymphocytes ( %) (Auto) 25.3, Monocytes (%) (Auto) 10.0, Eosinophils (%) (Auto) 0.2, Basophils (%) (Auto) 2.7H, Prothrombin Time 22.2H, Prothromb Time International Ratio 2.1H, Sodium Level 136, Potassium Level 3.2L, Chloride Level 98, Carbon Dioxide Level 32, Anion Gap 6, Blood Urea Nitrogen 56H, Creatinine 2.0H, Estimat Glomerular Filtration Rate , Glucose Level 196H, Calcium Level 8.4L, Total Bilirubin 0.3, Aspartate Amino Transf (AST/SGOT) 45H, Alanine Aminotransferase (ALT/SGPT) 68, Alkaline Phosphatase 51, Total Protein 6.2L, Albumin 2.8L, Globulin 3.4, Albumin/Globulin Ratio 0.8L Current Medications Medications (Trade) Dose Ordered Sig/Tam Route PRN Reason Start Time Stop Time Status Last Admin Dose Admin Acetaminophen (Tylenol) 650 mg Q6H PRN ORAL Mild Pain/Temp > 100.5 07/18/17 22:30 08/17/17 22:29 Atorvastatin Calcium (Lipitor) 10 mg QHS ORAL 07/18/17 21:00 08/17/17 20:59 07/21/17 20:33 Ceftriaxone Sodium 1 gm/ Sodium Chloride 55 ml @ 110 mls/hr QHS IVPB 07/20/17 21:00 07/27/17 20:59 07/22/17 21:50 Dextrose (Dextrose 50%) STAT PRN IV Hypoglycemia 07/18/17 18:30 08/17/17 18:29 Ipratropium [place] (Atrovent) 500 mcg Q6HRT HHN 07/19/17 13:00 07/24/17 12:59 07/23/17 06:44 Levalbuterol HCl (Xopenex) 1.25 mg TIDRT N 07/19/17 13:00 07/24/17 12:59 07/23/17 06:44 Levothyroxine Sodium (Synthroid) 75 mcg DAILY@0630 ORAL 07/19/17 06:30 08/18/17 06:29 07/22/17 06:07 Linezolid 300 ml @ 300 mls/hr Q12HR IVPB 07/20/17 21:00 07/27/17 20:59 07/23/17 09:08 Metoprolol Tartrate (Lopressor) 50 mg BID ORAL 07/21/17 18:00 08/18/17 14:59 07/22/17 18:30 Pantoprazole (Protonix) 40 mg DAILY ORAL 07/19/17 12:00 08/18/17 11:59 07/22/17 08:42 Potassium Chloride 40 meq/ Sodium Chloride 570 ml @ 142.5 mls/ hr ONCE ONCE IVPB 07/23/17 11:00 07/23/17 14:59 07/23/17 11:28 Sitagliptin Phosphate (Januvia) 25 mg ACBREAKFAST ORAL 07/21/17 06:30 08/20/17 06:29 07/22/17 06:07 Warfarin Sodium (Coumadin per pharmacy) 1 ea DAILY PRN MISC Per rx protocol 07/18/17 18:30 08/17/17 18:29 Warfarin Sodium (Coumadin) 4 mg COUMADIN PO 07/23/17 17:00 07/23/17 17:01 NEELA ARIAS DO Jul 23, 2017 12:59
[2017-07-23] MEDS ORDERED: Tubing IV Secondary IV ONE ×2 (15:35→15:46)
[2017-07-23] MEDS ORDERED: NS 275ml ONE (15:46)
[2017-07-23 16:00] VITALS: BP 103/55
[2017-07-23] MEDS ORDERED: Warfarin Sodium 4mg PO SCH (17:00)
--- NOTE | 2017-07-23 19:10 | General Progress Note ---
Assessment/Plan Assessment/Plan 1) CHF is better 2) UTI with sepsis due to Klesiella 3) ? staph bacteremia, ? source, R/O SBE 4) CopD exacerbation 5) WENDY improved with diuresis pointing toward cardio-renal syndrome 6) A. Fib 7) some urinary retention Plan: Continue IV ATB's Will probably will need BISI Physical RX awaiting serum C3 and C4 and CH50 Labs in AM Subjective Allergies: Coded Allergies: No Known Allergies (Unverified , 07/18/17) Subjective She is having good diuresis, creat is down to 2.0, I/o -1.6L, K+ was 3.2, received 40 MEQ of IV KCL Objective Last 24 Hour Vital Signs Date Time Temp Pulse Resp B/P (MAP) Pulse Ox O2 Delivery O2 Flow Rate FiO2 07/23/17 17:26 79 103/55 07/23/17 16:00 79.3 79 17 103/55 98 Nasal Cannula 2.0 79.3 07/23/17 16:00 79 07/23/17 15:37 65 16 Nasal Cannula 2.0 28 07/23/17 13:29 72 14 99 Nasal Cannula 2.0 28 07/23/17 13:18 65 16 92 Nasal Cannula 2.0 28 07/23/17 12:00 97.2 77 17 120/63 99 Nasal Cannula 2.0 97.2 07/23/17 12:00 76 07/23/17 09:20 70 98/57 07/23/17 08:00 78 07/23/17 08:00 87.8 88 20 99/57 99 Nasal Cannula 2.0 87.8 07/23/17 06:57 73 14 100 Nasal Cannula 2.0 28 07/23/17 06:46 Nasal Cannula 2.0 28 07/23/17 06:46 100 Nasal Cannula 28 07/23/17 06:44 71 14 100 Nasal Cannula 2.0 28 07/23/17 04:00 97.7 73 14 118/61 97 Nasal Cannula 2.0 97.7 07/23/17 04:00 63 07/23/17 01:08 78 20 99 Nasal Cannula 2.0 28 07/23/17 00:58 82 18 97 Nasal Cannula 2.0 28 07/23/17 00:00 69 07/23/17 00:00 97.7 71 14 121/59 98 Nasal Cannula 3.0 97.7 07/22/17 20:00 97.5 74 18 131/74 98 Nasal Cannula 2.0 97.5 07/22/17 20:00 76 07/22/17 19:02 73 20 98 Nasal Cannula 2.0 28 07/22/17 18:52 72 18 92 Room Air 21 07/22/17 18:52 Nasal Cannula 2.0 28 07/22/17 18:52 92 Room Air 21 Intake and Output 07/22/17 07/23/17 19:00 07:00 Intake Total 1300 ml 355 ml Output Total 550 ml 2850 ml Balance 750 ml -2495 ml Intake Oral 600 ml IV Total 700 ml 355 ml Output Urine Total 550 ml 2850 ml # Bowel Movements 3 1 Laboratory Tests 07/23/17 01:00: Urine Color Pale yellow, Urine Appearance Clear, Urine pH 5, Urine Specific [place] 1.010, Urine Protein Negative, Urine Glucose (UA) Negative, Urine Ketones Negative, Urine Occult Blood 1+H, Urine Nitrite Negative, Urine Bilirubin Negative, Urine Urobilinogen Normal, Urine Leukocyte Esterase Negative , Urine RBC 0-2, Urine WBC 0-2, Urine Squamous Epithelial Cells Occasional, Urine Bacteria Occasional, Urine Random Total Protein 2, Urine Creatinine 5.7L 07/23/17 04:05: White Blood Count 7.7, Red Blood Count 3.77L, Hemoglobin 10.3L, Hematocrit 31.4L , Mean Corpuscular Volume 83, Mean Corpuscular Hemoglobin 27.3, Mean Corpuscular Hemoglobin Concent 32.8, Red Cell Distribution Width 14.6, Platelet Count 242, Mean Platelet Volume 6.1L, Neutrophils (%) (Auto) 61.8, Lymphocytes ( %) (Auto) 25.3, Monocytes (%) (Auto) 10.0, Eosinophils (%) (Auto) 0.2, Basophils (%) (Auto) 2.7H, Prothrombin Time 22.2H, Prothromb Time International Ratio 2.1H, Sodium Level 136, Potassium Level 3.2L, Chloride Level 98, Carbon Dioxide Level 32, Anion Gap 6, Blood Urea Nitrogen 56H, Creatinine 2.0H, Estimat Glomerular Filtration Rate , Glucose Level 196H, Calcium Level 8.4L, Total Bilirubin 0.3, Aspartate Amino Transf (AST/SGOT) 45H, Alanine Aminotransferase (ALT/SGPT) 68, Alkaline Phosphatase 51, Total Protein 6.2L, Albumin 2.8L, Globulin 3.4, Albumin/Globulin Ratio 0.8L Height (Feet): 5 Weight (Pounds): 165 General Appearance: WD/WN, no apparent distress, alert EENT: PERRL/EOMI Neck: non-tender, normal alignment Cardiovascular: JVD - nl high, irregularly irregular Respiratory/Chest: decreased breath sounds Abdomen: normal bowel sounds, non tender Edema: mild edema Neurologic: 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
[2017-07-23 20:00] VITALS: BP 102/55
[2017-07-23] MEDS: cefTRIAXone 1 GM in NS 55 ML IVPB SCH (20:52)
--- NOTE | 2017-07-23 22:24 | Infectious Diseases Prog Note ---
Assessment/Plan Problems: (1) Sepsis Assessment & Plan: with coag negative staphylococcus spp grew out of four bottles , most likely real, source? continue zyvox to cover for bacteremia , keep off vancomycin for now to avoid further nephrotoxicity , repeated blood culture to confirm clearance is negative , 2D ECHO didn't show any vegetations to suggest endocarditis . will need two weeks of iv antibiotics for her bacteremia from the clearance date , doesn't meet criteria for endocarditis (2) UTI (urinary tract infection) Assessment & Plan: with klebsiella pneumonia , continue ceftriaxon for 7 days (3) Respiratory distress Assessment & Plan: CHF VS COPD/ASTHMA exacerbation , continue inhalers and diuretics as per renal , close monitor of UOP and renal function (4) Asthma exacerbation Assessment & Plan: continue inhalers, taper steroids, continue antibiotics , monitor CXR (5) WENDY (acute kidney injury) Assessment & Plan: keep off vancomycin to avoid further nephrotoxicity , hold diuresis if needed, monitor renal function, avoid nephrotoxics Subjective Constitutional: Reports: no symptoms HEENT: Reports: no symptoms Respiratory: Reports: no symptoms Breasts: Reports: no symptoms Cardiovascular: Reports: no symptoms Gastrointestinal/Abdominal: Reports: no symptoms Genitourinary: Reports: no symptoms Neurologic: Reports: no symptoms Psychiatric: Reports: no symptoms Skin: Reports: no symptoms Endocrine: Reports: no symptoms Hematologic: Reports: no symptoms Allergies: Coded Allergies: No Known Allergies (Unverified , 07/18/17) Objective Vital Signs Last 24 Hour Vital Signs Date Time Temp Pulse Resp B/P (MAP) Pulse Ox O2 Delivery O2 Flow Rate FiO2 07/23/17 20:00 71 07/23/17 20:00 97.4 67 18 102/55 96 Nasal Cannula 2.0 97.4 07/23/17 19:48 63 16 100 Nasal Cannula 2.0 28 07/23/17 19:40 68 16 100 Nasal Cannula 2.0 28 07/23/17 19:39 Nasal Cannula 2.0 28 07/23/17 19:39 100 Nasal Cannula 2.0 28 07/23/17 17:26 79 103/55 07/23/17 16:00 79.3 79 17 103/55 98 Nasal Cannula 2.0 79.3 07/23/17 16:00 79 07/23/17 15:37 65 16 Nasal Cannula 2.0 28 07/23/17 13:29 72 14 99 Nasal Cannula 2.0 28 07/23/17 13:18 65 16 92 Nasal Cannula 2.0 28 07/23/17 12:00 97.2 77 17 120/63 99 Nasal Cannula 2.0 97.2 07/23/17 12:00 76 07/23/17 09:20 70 98/57 07/23/17 08:00 78 07/23/17 08:00 87.8 88 20 99/57 99 Nasal Cannula 2.0 87.8 07/23/17 06:57 73 14 100 Nasal Cannula 2.0 28 07/23/17 06:46 Nasal Cannula 2.0 28 07/23/17 06:46 100 Nasal Cannula 28 07/23/17 06:44 71 14 100 Nasal Cannula 2.0 28 07/23/17 04:00 97.7 73 14 118/61 97 Nasal Cannula 2.0 97.7 07/23/17 04:00 63 07/23/17 01:08 78 20 99 Nasal Cannula 2.0 28 07/23/17 00:58 82 18 97 Nasal Cannula 2.0 28 07/23/17 00:00 69 07/23/17 00:00 97.7 71 14 121/59 98 Nasal Cannula 3.0 97.7 Height (Feet): 5 Weight (Pounds): 165 General Appearance: WD/WN, no acute distress HEENT: normocephalic, atraumatic, anicteric, mucous membranes moist, PERRL Respiratory/Chest: chest wall non-tender, no respiratory distress, no accessory muscle use, decreased breath sounds, expiratory wheezing Cardiovascular: normal peripheral pulses, regularly irregular, no gallop/murmur , no JVD Abdomen: normal bowel sounds, soft, non tender, no organomegaly, non distended , no mass, no scars Genitourinary: normal external genitalia Extremities: no cyanosis, no clubbing Skin: no rash, no lesions, no ulcers Neurologic/Psychiatric: alert, oriented x 3 Lymphatic: no neck adenopathy, no groin adenopathy Musculoskeletal: normal muscle bulk, no effusion Laboratory Tests Test 07/23/17 01:00 07/23/17 04:05 Urine Color Pale yellow Urine Appearance Clear Urine pH 5 (4.5-8.0) Urine Specific [place] 1.010 (1.005-1.035) Urine Protein Negative (NEGATIVE) Urine Glucose (UA) Negative (NEGATIVE) Urine Ketones Negative (NEGATIVE) Urine Occult Blood 1+ (NEGATIVE) H Urine Nitrite Negative (NEGATIVE) Urine Bilirubin Negative (NEGATIVE) Urine Urobilinogen Normal MG/DL (0.0-1.0) Urine Leukocyte Esterase Negative (NEGATIVE) Urine RBC 0-2 /HPF (0 - 2) Urine WBC 0-2 /HPF (0 - 2) Urine Squamous Epithelial Cells Occasional /LPF Urine Bacteria Occasional /HPF (NONE) Urine Random Total Protein 2 MG/DL (< 11.9) Urine Creatinine 5.7 MG/DL (30.0-125.0) L White Blood Count 7.7 K/UL (4.8-10.8) Red Blood Count 3.77 M/UL (4.20-5.40) L Hemoglobin 10.3 G/DL (12.0-16.0) L Hematocrit 31.4 % (37.0-47.0) L Mean Corpuscular Volume 83 FL (80-99) Mean Corpuscular Hemoglobin 27.3 PG (27.0-31.0) Mean Corpuscular Hemoglobin Concent 32.8 G/DL (32.0-36.0) Red Cell Distribution Width 14.6 % (11.6-14.8) Platelet Count 242 K/UL (150-450) Mean Platelet Volume 6.1 FL (6.5-10.1) L Neutrophils (%) (Auto) 61.8 % (45.0-75.0) Lymphocytes (%) (Auto) 25.3 % (20.0-45.0) Monocytes (%) (Auto) 10.0 % (1.0-10.0) Eosinophils (%) (Auto) 0.2 % (0.0-3.0) Basophils (%) (Auto) 2.7 % (0.0-2.0) H Prothrombin Time 22.2 SEC (9.30-11.50) H Prothromb Time International Ratio 2.1 (0.9-1.1) H Sodium Level 136 MMOL/L (136-145) Potassium Level 3.2 MMOL/L (3.5-5.1) L Chloride Level 98 MMOL/L (98-107) Carbon Dioxide Level 32 MMOL/L (21-32) Anion Gap 6 mmol/L (5-15) Blood Urea Nitrogen 56 mg/dL (7-18) H Creatinine 2.0 MG/DL (0.55-1.30) H Estimat Glomerular Filtration Rate mL/min (>60) Glucose Level 196 MG/DL (74-106) H Calcium Level 8.4 MG/DL (8.5-10.1) L Total Bilirubin 0.3 MG/DL (0.2-1.0) Aspartate Amino Transf (AST/SGOT) 45 U/L (15-37) H Alanine Aminotransferase (ALT/SGPT) 68 U/L (12-78) Alkaline Phosphatase 51 U/L (46-116) Total Protein 6.2 G/DL (6.4-8.2) L Albumin 2.8 G/DL (3.4-5.0) L Globulin 3.4 g/dL Albumin/Globulin Ratio 0.8 (1.0-2.7) L Current Medications Medications (Trade) Dose Ordered Sig/Tam Route PRN Reason Start Time Stop Time Status Last Admin Dose Admin Acetaminophen (Tylenol) 650 mg Q6H PRN ORAL Mild Pain/Temp > 100.5 07/18/17 22:30 08/17/17 22:29 Atorvastatin Calcium (Lipitor) 10 mg QHS ORAL 07/18/17 21:00 08/17/17 20:59 07/23/17 20:52 Ceftriaxone Sodium 1 gm/ Sodium Chloride 55 ml @ 110 mls/hr QHS IVPB 07/20/17 21:00 07/27/17 20:59 07/23/17 20:52 Dextrose (Dextrose 50%) STAT PRN IV Hypoglycemia 07/18/17 18:30 08/17/17 18:29 Ipratropium [place] (Atrovent) 500 mcg Q6HRT HHN 07/19/17 13:00 07/24/17 12:59 07/23/17 19:39 Levalbuterol HCl (Xopenex) 1.25 mg TIDRT N 07/19/17 13:00 07/24/17 12:59 07/23/17 19:39 Levothyroxine Sodium (Synthroid) 75 mcg DAILY@0630 ORAL 07/19/17 06:30 08/18/17 06:29 07/22/17 06:07 Linezolid 300 ml @ 300 mls/hr Q12HR IVPB 07/20/17 21:00 07/27/17 20:59 07/23/17 22:12 Metoprolol Tartrate (Lopressor) 50 mg BID ORAL 07/21/17 18:00 08/18/17 14:59 07/23/17 17:26 Pantoprazole (Protonix) 40 mg DAILY ORAL 07/19/17 12:00 08/18/17 11:59 07/22/17 08:42 Sitagliptin Phosphate (Januvia) 25 mg ACBREAKFAST ORAL 07/21/17 06:30 08/20/17 06:29 07/22/17 06:07 Warfarin Sodium (Coumadin per pharmacy) 1 ea DAILY PRN MISC Per rx protocol 07/18/17 18:30 08/17/17 18:29 Juan Foy M.D. Jul 23, 2017 22:24
[2017-07-24] VITALS (10 sets, daily range): BP systolic 92–110; BP diastolic 37–77
[2017-07-24 05:11] LABS: HEMOGLOBIN 10.4 G/DL (12.0-16.0); MEAN CORPUSCULAR VOLUME 84 FL (80-99); PLATELET COUNT 227 K/UL (150-450); RED BLOOD COUNT 3.82 M/UL (4.20-5.40); RED CELL DISTRIBUTION WIDTH 14.8 % (11.6-14.8); WHITE BLOOD COUNT 11.1 K/UL (4.8-10.8)
[2017-07-24 05:12] LABS: INR 1.7 (0.9-1.1)
[2017-07-24 05:32] LABS: ANION GAP 6 mmol/L (5-15); BLOOD UREA NITROGEN 39 mg/dL (7-18); CALCIUM 8.2 MG/DL (8.5-10.1); CARBON DIOXIDE 33 MMOL/L (21-32); CHLORIDE 101 MMOL/L (98-107); CREATININE 1.6 MG/DL (0.55-1.30); POTASSIUM 3.2 MMOL/L (3.5-5.1); SODIUM 140 MMOL/L (136-145)
[2017-07-24] MEDS: sitaGLIPtin 25mg tab ORAL SCH ×3 (06:18→08:33)
[2017-07-24] MEDS: Levalbuterol Inh UD 1.25mg/0.5ml HHN SCH (07:40)
[2017-07-24] MEDS: Ipratropium 0.02% Inh Soln 2.5ml UD HHN SCH (07:40)
[2017-07-24] MEDS: Metoprolol 25mg tab ORAL SCH (08:34)
[2017-07-24] MEDS: acetaZOLAMIDE 500mg Inj IVP SCH ×2 (09:42→14:46)
--- NOTE | 2017-07-24 10:04 | General Progress Note ---
Assessment/Plan Assessment/Plan 1) CHF is better 2) UTI with sepsis due to Klesiella 3) ? staph bacteremia, ? source, R/O SBE 4) CopD exacerbation 5) WENDY improved with diuresis pointing toward cardio-renal syndrome 6) A. Fib 7) some urinary retention 8) Some Metabolic alkalosis Plan: Continue IV ATB's Will probably will need BISI Physical RX awaiting serum C3 and C4 and CH50 Will give Lasix 60 mg IV + Diamox 500 mg IV Q8x3 Replete K+ Labs in AM Subjective Allergies: Coded Allergies: No Known Allergies (Unverified , 07/18/17) Subjective She is diuresing well, I/O -1.9 L, she seems to be very appathetic, creat is down to 1.6, CO2 is 33 Objective Last 24 Hour Vital Signs Date Time Temp Pulse Resp B/P (MAP) Pulse Ox O2 Delivery O2 Flow Rate FiO2 07/24/17 09:39 74 104/60 07/24/17 08:34 107 99/61 07/24/17 08:00 97.0 106 16 104/77 99 Nasal Cannula 2.0 97.0 07/24/17 08:00 106 07/24/17 07:44 64 18 100 Nasal Cannula 2.0 07/24/17 07:40 Nasal Cannula 2.0 28 07/24/17 07:40 98 Nasal Cannula 2.0 28 07/24/17 07:40 58 18 98 Nasal Cannula 2.0 07/24/17 04:00 97.9 104 20 110/55 95 Nasal Cannula 2.0 97.9 07/24/17 04:00 101 07/24/17 00:00 97.7 69 18 103/55 100 Nasal Cannula 2.0 97.7 07/24/17 00:00 61 07/23/17 23:56 101 18 99 Nasal Cannula 1.0 07/23/17 23:47 107 22 97 Nasal Cannula 1.0 07/23/17 20:00 71 07/23/17 20:00 97.4 67 18 102/55 96 Nasal Cannula 2.0 97.4 07/23/17 19:48 63 16 100 Nasal Cannula 2.0 28 07/23/17 19:40 68 16 100 Nasal Cannula 2.0 28 07/23/17 19:39 Nasal Cannula 2.0 28 07/23/17 19:39 100 Nasal Cannula 2.0 28 07/23/17 17:26 79 103/55 07/23/17 16:00 79.3 79 17 103/55 98 Nasal Cannula 2.0 79.3 07/23/17 16:00 79 07/23/17 15:37 65 16 Nasal Cannula 2.0 28 07/23/17 13:29 72 14 99 Nasal Cannula 2.0 28 07/23/17 13:18 65 16 92 Nasal Cannula 2.0 28 07/23/17 12:00 97.2 77 17 120/63 99 Nasal Cannula 2.0 97.2 07/23/17 12:00 76 Intake and Output 07/23/17 07/24/17 19:00 07:00 Intake Total 1156.0 ml 355 ml Output Total 2450 ml 1000 ml Balance -1294.0 ml -645 ml Intake Oral 500 ml IV Total 656.0 ml 355 ml Output Urine Total 2450 ml 1000 ml # Bowel Movements 1 Laboratory Tests 07/24/17 04:05: White Blood Count 11.1H, Red Blood Count 3.82L, Hemoglobin 10.4L, Hematocrit 32.0L, Mean Corpuscular Volume 84, Mean Corpuscular Hemoglobin 27.1, Mean Corpuscular Hemoglobin Concent 32.3, Red Cell Distribution Width 14.8, Platelet Count 227, Mean Platelet Volume 6.2L, Neutrophils (%) (Auto) , Lymphocytes (%) ( Auto) , Monocytes (%) (Auto) , Eosinophils (%) (Auto) , Basophils (%) (Auto) , Differential Total Cells Counted 100, Neutrophils % (Manual) 80H, Lymphocytes % (Manual) 15L, Monocytes % (Manual) 5, Eosinophils % (Manual) 0, Basophils % ( Manual) 0, Band Neutrophils 0, Platelet Estimate Adequate, Platelet Morphology Normal, Anisocytosis 1+, Prothrombin Time 18.0H, Prothromb Time International Ratio 1.7H, Sodium Level 140, Potassium Level 3.2L, Chloride Level 101, Carbon Dioxide Level 33H, Anion Gap 6, Blood Urea Nitrogen 39H, Creatinine 1.6H, Estimat Glomerular Filtration Rate , Glucose Level 166H, Calcium Level 8.2L Height (Feet): 5 Weight (Pounds): 150 General Appearance: WD/WN, no apparent distress EENT: PERRL/EOMI Neck: non-tender, supple Cardiovascular: JVD - nl high, irregularly irregular Respiratory/Chest: chest wall non-tender, decreased breath sounds Edema: mild edema Neurologic: c++ quant 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
--- NOTE | 2017-07-24 12:23 | Cardiology Progress Note ---
Assessment/Plan Problem List: (1) CHF exacerbation (2) Asthma exacerbation (3) Atrial fibrillation with rapid ventricular response (4) WENDY (acute kidney injury) Status: stable, unchanged Status Narrative AF - persistent v permanent. Ventricular rates are slow - 40s-50s Moderate MS/ ? CHF/ diastolic Hypokalemia - due to diuretics. Prerenal azotemia Dementia Assessment/Plan Continue anticoagulation for valvular AF, to maintain inr 2-3. INR subtherapeutic today - warfarin adjusted Will decrease metoprolol to 25 mg bid Supplement K Prerenal azotemia resolving w/ holding lasix.. WBC elevated - r/o infection. Follow i/os, wts and recheck labs in am d/w RN Subjective ROS Limited/Unobtainable: Yes Subjective Cardiology for Dr. Lindsay Mrs. Galvez is sedated. Events noted: pt bradycardic 40s-50s in AF Objective Last 24 Hour Vital Signs Date Time Temp Pulse Resp B/P (MAP) Pulse Ox O2 Delivery O2 Flow Rate FiO2 07/24/17 11:30 45 14 92/52 100 Nasal Cannula 2.0 07/24/17 11:20 97.0 44 15 98/37 100 Nasal Cannula 2.0 97.0 07/24/17 11:00 41 14 97/49 100 Nasal Cannula 2.0 07/24/17 10:51 39 16 109/52 99 Room Air 07/24/17 09:39 74 104/60 07/24/17 08:34 107 99/61 07/24/17 08:00 97.0 106 16 104/77 99 Nasal Cannula 2.0 97.0 07/24/17 08:00 106 07/24/17 07:44 64 18 100 Nasal Cannula 2.0 07/24/17 07:40 Nasal Cannula 2.0 28 07/24/17 07:40 98 Nasal Cannula 2.0 28 07/24/17 07:40 58 18 98 Nasal Cannula 2.0 07/24/17 04:00 97.9 104 20 110/55 95 Nasal Cannula 2.0 97.9 07/24/17 04:00 101 07/24/17 00:00 97.7 69 18 103/55 100 Nasal Cannula 2.0 97.7 07/24/17 00:00 61 07/23/17 23:56 101 18 99 Nasal Cannula 1.0 07/23/17 23:47 107 22 97 Nasal Cannula 1.0 07/23/17 20:00 71 07/23/17 20:00 97.4 67 18 102/55 96 Nasal Cannula 2.0 97.4 07/23/17 19:48 63 16 100 Nasal Cannula 2.0 28 07/23/17 19:40 68 16 100 Nasal Cannula 2.0 28 07/23/17 19:39 Nasal Cannula 2.0 28 07/23/17 19:39 100 Nasal Cannula 2.0 28 07/23/17 17:26 79 103/55 07/23/17 16:00 79.3 79 17 103/55 98 Nasal Cannula 2.0 79.3 07/23/17 16:00 79 07/23/17 15:37 65 16 Nasal Cannula 2.0 28 07/23/17 13:29 72 14 99 Nasal Cannula 2.0 28 07/23/17 13:18 65 16 92 Nasal Cannula 2.0 28 General Appearance: WD/WN, no apparent distress, obese EENT: PERRL/EOMI Neck: supple, no JVD Rhythm: Afib Cardiovascular: bradycardia, irregularly irregular Respiratory/Chest: other - clear anteriorly Abdomen: non tender, soft Extremities: no swelling Intake and Output 07/23/17 07/24/17 19:00 07:00 Intake Total 1156.0 ml 355 ml Output Total 2450 ml 1000 ml Balance -1294.0 ml -645 ml Intake Oral 500 ml IV Total 656.0 ml 355 ml Output Urine Total 2450 ml 1000 ml # Bowel Movements 1 Laboratory Tests Test 07/24/17 04:05 White Blood Count 11.1 K/UL (4.8-10.8) H Red Blood Count 3.82 M/UL (4.20-5.40) L Hemoglobin 10.4 G/DL (12.0-16.0) L Hematocrit 32.0 % (37.0-47.0) L Mean Corpuscular Volume 84 FL (80-99) Mean Corpuscular Hemoglobin 27.1 PG (27.0-31.0) Mean Corpuscular Hemoglobin Concent 32.3 G/DL (32.0-36.0) Red Cell Distribution Width 14.8 % (11.6-14.8) Platelet Count 227 K/UL (150-450) Mean Platelet Volume 6.2 FL (6.5-10.1) L Neutrophils (%) (Auto) % (45.0-75.0) Lymphocytes (%) (Auto) % (20.0-45.0) Monocytes (%) (Auto) % (1.0-10.0) Eosinophils (%) (Auto) % (0.0-3.0) Basophils (%) (Auto) % (0.0-2.0) Differential Total Cells Counted 100 Neutrophils % (Manual) 80 % (45-75) H Lymphocytes % (Manual) 15 % (20-45) L Monocytes % (Manual) 5 % (1-10) Eosinophils % (Manual) 0 % (0-3) Basophils % (Manual) 0 % (0-2) Band Neutrophils 0 % (0-8) Platelet Estimate Adequate Platelet Morphology Normal Anisocytosis 1+ Prothrombin Time 18.0 SEC (9.30-11.50) H Prothromb Time International Ratio 1.7 (0.9-1.1) H Sodium Level 140 MMOL/L (136-145) Potassium Level 3.2 MMOL/L (3.5-5.1) L Chloride Level 101 MMOL/L (98-107) Carbon Dioxide Level 33 MMOL/L (21-32) H Anion Gap 6 mmol/L (5-15) Blood Urea Nitrogen 39 mg/dL (7-18) H Creatinine 1.6 MG/DL (0.55-1.30) H Estimat Glomerular Filtration Rate mL/min (>60) Glucose Level 166 MG/DL (74-106) H Calcium Level 8.2 MG/DL (8.5-10.1) [facility]INMA[facility]IDE Jul 24, 2017 12:23
--- NOTE | 2017-07-24 13:55 | Infectious Diseases Prog Note ---
Assessment/Plan Problems: (1) Sepsis Assessment & Plan: with coag negative staphylococcus spp grew out of four bottles , most likely real, source? continue zyvox for bacteremia , keep off vancomycin for now to avoid further nephrotoxicity , repeated blood culture to confirm clearance is negative , 2D ECHO didn't show any vegetations to suggest endocarditis . will need two weeks of iv antibiotics for her bacteremia from the clearance date , doesn't meet criteria for endocarditis (2) UTI (urinary tract infection) Assessment & Plan: with klebsiella pneumonia , continue ceftriaxon for 7 days (3) Respiratory distress Assessment & Plan: CHF VS COPD/ASTHMA exacerbation , continue inhalers and diuretics as per renal , close monitor of UOP and renal function (4) Asthma exacerbation Assessment & Plan: continue inhalers, taper steroids, continue antibiotics , monitor CXR (5) WENDY (acute kidney injury) Assessment & Plan: improving, keep off vancomycin to avoid further nephrotoxicity , hold diuresis if needed, monitor renal function, avoid nephrotoxics (6) Bradycardia Assessment & Plan: suspect due to beta timbo , dose was decreased, cardiology is following Subjective ROS Limited/Unobtainable: Yes Allergies: Coded Allergies: No Known Allergies (Unverified , 07/18/17) Subjective she was lethargic, alert, responds to verbal commands , bradycardic today . no fever or chills, no cough or SOB , no diarrhea Objective Vital Signs Last 24 Hour Vital Signs Date Time Temp Pulse Resp B/P (MAP) Pulse Ox O2 Delivery O2 Flow Rate FiO2 07/24/17 11:45 54 07/24/17 11:30 45 14 92/52 100 Nasal Cannula 2.0 07/24/17 11:20 97.0 44 15 98/37 100 Nasal Cannula 2.0 97.0 07/24/17 11:04 39 07/24/17 11:00 41 14 97/49 100 Nasal Cannula 2.0 07/24/17 10:51 39 16 109/52 99 Room Air 07/24/17 09:39 74 104/60 07/24/17 08:34 107 99/61 07/24/17 08:00 97.0 106 16 104/77 99 Nasal Cannula 2.0 97.0 07/24/17 08:00 106 07/24/17 07:44 64 18 100 Nasal Cannula 2.0 07/24/17 07:40 Nasal Cannula 2.0 28 07/24/17 07:40 98 Nasal Cannula 2.0 28 07/24/17 07:40 58 18 98 Nasal Cannula 2.0 07/24/17 04:00 97.9 104 20 110/55 95 Nasal Cannula 2.0 97.9 07/24/17 04:00 101 07/24/17 00:00 97.7 69 18 103/55 100 Nasal Cannula 2.0 97.7 07/24/17 00:00 61 07/23/17 23:56 101 18 99 Nasal Cannula 1.0 07/23/17 23:47 107 22 97 Nasal Cannula 1.0 07/23/17 20:00 71 07/23/17 20:00 97.4 67 18 102/55 96 Nasal Cannula 2.0 97.4 07/23/17 19:48 63 16 100 Nasal Cannula 2.0 28 07/23/17 19:40 68 16 100 Nasal Cannula 2.0 28 07/23/17 19:39 Nasal Cannula 2.0 28 07/23/17 19:39 100 Nasal Cannula 2.0 28 07/23/17 17:26 79 103/55 07/23/17 16:00 79.3 79 17 103/55 98 Nasal Cannula 2.0 79.3 07/23/17 16:00 79 07/23/17 15:37 65 16 Nasal Cannula 2.0 28 Height (Feet): 5 Weight (Pounds): 150 General Appearance: WD/WN, no acute distress HEENT: normocephalic, atraumatic, anicteric, mucous membranes moist, PERRL, supple, no JVD Respiratory/Chest: chest wall non-tender, no respiratory distress, no accessory muscle use, decreased breath sounds Cardiovascular: normal peripheral pulses, normal rate, regular rhythm, no gallop/murmur, no JVD Abdomen: normal bowel sounds, soft, non tender, no organomegaly, non distended , no mass Extremities: no cyanosis, no clubbing Skin: no rash, no lesions, no ulcers Neurologic/Psychiatric: alert, responsive Laboratory Tests Test 07/24/17 04:05 White Blood Count 11.1 K/UL (4.8-10.8) H Red Blood Count 3.82 M/UL (4.20-5.40) L Hemoglobin 10.4 G/DL (12.0-16.0) L Hematocrit 32.0 % (37.0-47.0) L Mean Corpuscular Volume 84 FL (80-99) Mean Corpuscular Hemoglobin 27.1 PG (27.0-31.0) Mean Corpuscular Hemoglobin Concent 32.3 G/DL (32.0-36.0) Red Cell Distribution Width 14.8 % (11.6-14.8) Platelet Count 227 K/UL (150-450) Mean Platelet Volume 6.2 FL (6.5-10.1) L Neutrophils (%) (Auto) % (45.0-75.0) Lymphocytes (%) (Auto) % (20.0-45.0) Monocytes (%) (Auto) % (1.0-10.0) Eosinophils (%) (Auto) % (0.0-3.0) Basophils (%) (Auto) % (0.0-2.0) Differential Total Cells Counted 100 Neutrophils % (Manual) 80 % (45-75) H Lymphocytes % (Manual) 15 % (20-45) L Monocytes % (Manual) 5 % (1-10) Eosinophils % (Manual) 0 % (0-3) Basophils % (Manual) 0 % (0-2) Band Neutrophils 0 % (0-8) Platelet Estimate Adequate Platelet Morphology Normal Anisocytosis 1+ Prothrombin Time 18.0 SEC (9.30-11.50) H Prothromb Time International Ratio 1.7 (0.9-1.1) H Sodium Level 140 MMOL/L (136-145) Potassium Level 3.2 MMOL/L (3.5-5.1) L Chloride Level 101 MMOL/L (98-107) Carbon Dioxide Level 33 MMOL/L (21-32) H Anion Gap 6 mmol/L (5-15) Blood Urea Nitrogen 39 mg/dL (7-18) H Creatinine 1.6 MG/DL (0.55-1.30) H Estimat Glomerular Filtration Rate mL/min (>60) Glucose Level 166 MG/DL (74-106) H Calcium Level 8.2 MG/DL (8.5-10.1) L Current Medications Medications (Trade) Dose Ordered Sig/Tam Route PRN Reason Start Time Stop Time Status Last Admin Dose Admin Acetaminophen (Tylenol) 650 mg Q6H PRN ORAL Mild Pain/Temp > 100.5 2/19/18 22:30 08/17/17 22:29 Acetazolamide (Diamox 500mg Inj) 500 mg Q8HR IVP 07/24/17 09:00 07/24/17 22:01 07/24/17 09:42 Atorvastatin Calcium (Lipitor) 10 mg QHS ORAL 07/18/17 21:00 08/17/17 20:59 07/23/17 20:52 Ceftriaxone Sodium 1 gm/ Sodium Chloride 55 ml @ 110 mls/hr QHS IVPB 07/20/17 21:00 07/27/17 20:59 07/23/17 20:52 Dextrose (Dextrose 50%) STAT PRN IV Hypoglycemia 07/18/17 18:30 08/17/17 18:29 Levothyroxine Sodium (Synthroid) 75 mcg DAILY@0630 ORAL 07/19/17 06:30 08/18/17 06:29 07/24/17 08:33 Linezolid 300 ml @ 300 mls/hr Q12HR IVPB 07/20/17 21:00 07/27/17 20:59 07/24/17 09:02 Pantoprazole (Protonix) 40 mg DAILY ORAL 07/19/17 12:00 08/18/17 11:59 07/24/17 08:34 Potassium Chloride (K-Dur) 40 meq Q8HR ORAL 07/24/17 08:30 07/24/17 14:01 07/24/17 08:34 Sitagliptin Phosphate (Januvia) 25 mg ACBREAKFAST ORAL 07/21/17 06:30 08/20/17 06:29 07/24/17 08:33 Warfarin Sodium (Coumadin per pharmacy) 1 ea DAILY PRN MISC Per rx protocol 07/18/17 18:30 08/17/17 18:29 Warfarin Sodium (Coumadin) 5 mg COUMADIN ONCE ORAL 07/24/17 17:00 07/24/17 17:01 Juan Foy M.D. Jul 24, 2017 13:55
[2017-07-24] MEDS ORDERED: NS 275ml ONE (16:26)
[2017-07-24] MEDS ORDERED: Warfarin Sodium 5mg ORAL ONE (17:00)
[2017-07-24] MEDS ORDERED: Metoprolol 25mg tab ORAL SCH ×2 (18:00)
--- NOTE | 2017-07-24 20:18 | Pulmonology Progress Note ---
Assessment/Plan Assessment/Plan 1. Acute respiratory failure requiring BiPAP, now improved. 2. Mild congestive heart failure. 3. Chronic asthma with exacerbation, improved 4. Obstructive sleep apnea, CPAP at night 5. Urinary tract infection, Klebsiella 6. Sepsis with [employer]ER in 4 of 4 BC 7. Diabetes. 8. Hypothyroidism 9. WENDY, slowly worse 10. Hyponatremia continues to improve bipap prn nebs and suction abx fu cultures, BC negative after 72 hours wound care bs control replace lytes. Subjective ROS Limited/Unobtainable: Yes Allergies: Coded Allergies: No Known Allergies (Unverified , 07/18/17) Subjective sleepign this evening no new events noted no cp nv ro bleeding no fever noted oob to cardiac chair did not use bipap last night minimally communicative. Objective Last 24 Hour Vital Signs Date Time Temp Pulse Resp B/P (MAP) Pulse Ox O2 Delivery O2 Flow Rate FiO2 07/24/17 19:02 100 Nasal Cannula 2.0 28 07/24/17 19:02 Nasal Cannula 2.0 28 07/24/17 16:00 59 20 105/58 99 Nasal Cannula 2.0 07/24/17 16:00 56 07/24/17 11:45 54 07/24/17 11:30 45 14 92/52 100 Nasal Cannula 2.0 07/24/17 11:20 97.0 44 15 98/37 100 Nasal Cannula 2.0 97.0 07/24/17 11:04 39 07/24/17 11:00 41 14 97/49 100 Nasal Cannula 2.0 07/24/17 10:51 39 16 109/52 99 Room Air 07/24/17 09:39 74 104/60 07/24/17 08:34 107 99/61 07/24/17 08:00 97.0 106 16 104/77 99 Nasal Cannula 2.0 97.0 07/24/17 08:00 106 07/24/17 07:44 64 18 100 Nasal Cannula 2.0 07/24/17 07:40 Nasal Cannula 2.0 28 07/24/17 07:40 98 Nasal Cannula 2.0 28 07/24/17 07:40 58 18 98 Nasal Cannula 2.0 07/24/17 04:00 97.9 104 20 110/55 95 Nasal Cannula 2.0 97.9 07/24/17 04:00 101 07/24/17 00:00 97.7 69 18 103/55 100 Nasal Cannula 2.0 97.7 07/24/17 00:00 61 07/23/17 23:56 101 18 99 Nasal Cannula 1.0 07/23/17 23:47 107 22 97 Nasal Cannula 1.0 Intake and Output 07/23/17 07/24/17 19:00 07:00 Intake Total 1156.0 ml 355 ml Output Total 2450 ml 1000 ml Balance -1294.0 ml -645 ml Intake Oral 500 ml IV Total 656.0 ml 355 ml Output Urine Total 2450 ml 1000 ml # Bowel Movements 1 General Appearance: WD/WN Respiratory/Chest: lungs clear, normal breath sounds Cardiovascular: normal rate, regular rhythm Abdomen: soft, non tender, no organomegaly Extremities: no cyanosis, no clubbing Neurologic/Psychiatric: alert, disoriented Musculoskeletal: normal muscle bulk Laboratory Tests 07/24/17 04:05: White Blood Count 11.1H, Red Blood Count 3.82L, Hemoglobin 10.4L, Hematocrit 32.0L, Mean Corpuscular Volume 84, Mean Corpuscular Hemoglobin 27.1, Mean Corpuscular Hemoglobin Concent 32.3, Red Cell Distribution Width 14.8, Platelet Count 227, Mean Platelet Volume 6.2L, Neutrophils (%) (Auto) , Lymphocytes (%) ( Auto) , Monocytes (%) (Auto) , Eosinophils (%) (Auto) , Basophils (%) (Auto) , Differential Total Cells Counted 100, Neutrophils % (Manual) 80H, Lymphocytes % (Manual) 15L, Monocytes % (Manual) 5, Eosinophils % (Manual) 0, Basophils % ( Manual) 0, Band Neutrophils 0, Platelet Estimate Adequate, Platelet Morphology Normal, Anisocytosis 1+, Prothrombin Time 18.0H, Prothromb Time International Ratio 1.7H, Sodium Level 140, Potassium Level 3.2L, Chloride Level 101, Carbon Dioxide Level 33H, Anion Gap 6, Blood Urea Nitrogen 39H, Creatinine 1.6H, Estimat Glomerular Filtration Rate , Glucose Level 166H, Calcium Level 8.2L Current Medications Medications (Trade) Dose Ordered Sig/Tam Route PRN Reason Start Time Stop Time Status Last Admin Dose Admin Acetaminophen (Tylenol) 650 mg Q6H PRN ORAL Mild Pain/Temp > 100.5 07/18/17 22:30 08/17/17 22:29 Acetazolamide (Diamox 500mg Inj) 500 mg Q8HR IVP 07/24/17 09:00 07/24/17 22:01 07/24/17 14:46 Atorvastatin Calcium (Lipitor) 10 mg QHS ORAL 07/18/17 21:00 08/17/17 20:59 07/23/17 20:52 Ceftriaxone Sodium 1 gm/ Sodium Chloride 55 ml @ 110 mls/hr QHS IVPB 07/20/17 21:00 07/27/17 20:59 07/23/17 20:52 Dextrose (Dextrose 50%) STAT PRN IV Hypoglycemia 07/18/17 18:30 08/17/17 18:29 Levothyroxine Sodium (Synthroid) 75 mcg DAILY@0630 ORAL 07/19/17 06:30 08/18/17 06:29 07/24/17 08:33 Linezolid 300 ml @ 300 mls/hr Q12HR IVPB 07/20/17 21:00 07/27/17 20:59 07/24/17 09:02 Pantoprazole (Protonix) 40 mg DAILY ORAL 07/19/17 12:00 08/18/17 11:59 07/24/17 08:34 Sitagliptin Phosphate (Januvia) 25 mg ACBREAKFAST ORAL 07/21/17 06:30 08/20/17 06:29 07/24/17 08:33 Warfarin Sodium (Coumadin per pharmacy) 1 ea DAILY PRN MISC Per rx protocol 07/18/17 18:30 08/17/17 18:29 NEELA ARIAS DO Jul 24, 2017 20:18
[2017-07-24] MEDS: cefTRIAXone 1 GM in NS 55 ML IVPB SCH (20:27)
[2017-07-25] VITALS: BP 105/63
[2017-07-25 04:07] LABS: BASOPHILS % (AUTO) 0.5 % (0.0-2.0); EOSINOPHILS % (AUTO) 1.4 % (0.0-3.0); HEMATOCRIT 32.7 % (37.0-47.0); HEMOGLOBIN 10.5 G/DL (12.0-16.0); LYMPHOCYTES % (AUTO) 14.6 % (20.0-45.0); MEAN CORPUSCULAR VOLUME 85 FL (80-99); MONOCYTES % (AUTO) 5.3 % (1.0-10.0); NEUTROPHILS % (AUTO) 78.3 % (45.0-75.0); PLATELET COUNT 219 K/UL (150-450); RED BLOOD COUNT 3.84 M/UL (4.20-5.40); RED CELL DISTRIBUTION WIDTH 14.7 % (11.6-14.8); WHITE BLOOD COUNT 13.8 K/UL (4.8-10.8)
[2017-07-25 04:16] LABS: INR 2.4 (0.9-1.1)
[2017-07-25 04:29] LABS: ANION GAP 4 mmol/L (5-15); BLOOD UREA NITROGEN 29 mg/dL (7-18); CALCIUM 8.4 MG/DL (8.5-10.1); CARBON DIOXIDE 35 MMOL/L (21-32); CHLORIDE 102 MMOL/L (98-107); CREATININE 1.6 MG/DL (0.55-1.30); PHOSPHORUS 3.4 MG/DL (2.5-4.9); POTASSIUM 3.5 MMOL/L (3.5-5.1); SODIUM 141 MMOL/L (136-145)
[2017-07-25 04:30] VITALS: BP 108/64
[2017-07-25] MEDS: sitaGLIPtin 25mg tab ORAL SCH (06:48)
[2017-07-25 08:00] VITALS: BP 112/48
[2017-07-25 12:00] VITALS: BP 113/62
[2017-07-25] MEDS ORDERED: acetaZOLAMIDE 500mg Inj IVP SCH (12:00)
--- NOTE | 2017-07-25 12:55 | Diagnostic Imaging Report ---
Indication: Cough Comparison: 07/24/2017 A single view chest radiograph was obtained. Findings: Heart is enlarged. The aorta is ectatic and moderately calcified. Bones are osteopenic. IMPRESSION: No acute disease
--- NOTE | 2017-07-25 13:02 | Pulmonology Progress Note ---
Assessment/Plan Assessment/Plan 1. Acute respiratory failure requiring BiPAP, now improved. 2. Mild congestive heart failure. 3. Chronic asthma with exacerbation, improved 4. Obstructive sleep apnea, CPAP at night 5. Urinary tract infection, Klebsiella 6. Sepsis with [employer] in 08/31 BC 7. Diabetes. 8. Hypothyroidism 9. WENDY, slowly worse 10. Hyponatremia BC neg abx per ID no resp distress, trial off O2 CPAP at night cont HHN disc w RN Subjective ROS Limited/Unobtainable: Yes Allergies: Coded Allergies: No Known Allergies (Unverified , 07/18/17) Objective Last 24 Hour Vital Signs Date Time Temp Pulse Resp B/P (MAP) Pulse Ox O2 Delivery O2 Flow Rate FiO2 07/25/17 12:00 55 07/25/17 12:00 97.7 62 16 113/62 100 Nasal Cannula 2.0 97.7 07/25/17 08:02 72 07/25/17 08:00 97.8 64 112/48 96 Nasal Cannula 2.0 97.8 07/25/17 07:33 100 Nasal Cannula 2.0 28 07/25/17 07:33 Nasal Cannula 2.0 28 07/25/17 07:26 107 07/25/17 04:30 97.7 111 18 108/64 99 Nasal Cannula 2.0 97.7 07/25/17 04:00 109 07/25/17 00:00 103 07/25/17 00:00 97.9 103 14 105/63 99 Nasal Cannula 2.0 97.9 07/24/17 20:00 60 07/24/17 20:00 97.7 63 18 104/58 99 Nasal Cannula 2.0 97.7 07/24/17 19:02 100 Nasal Cannula 2.0 28 07/24/17 19:02 Nasal Cannula 2.0 28 07/24/17 16:00 59 20 105/58 99 Nasal Cannula 2.0 07/24/17 16:00 56 Intake and Output 07/24/17 07/25/17 19:00 07:00 Intake Total 800 ml 480 ml Output Total 1000 ml 500 ml Balance -200 ml -20 ml Intake Oral 500 ml 125 ml IV Total 300 ml 355 ml Output Urine Total 1000 ml 500 ml # Bowel Movements 1 1 Objective overweight General Appearance: no acute distress HEENT: atraumatic Respiratory/Chest: lungs clear Cardiovascular: normal rate Laboratory Tests 07/25/17 03:15: White Blood Count 13.8H, Red Blood Count 3.84L, Hemoglobin 10.5L, Hematocrit 32.7L, Mean Corpuscular Volume 85, Mean Corpuscular Hemoglobin 27.3, Mean Corpuscular Hemoglobin Concent 32.0, Red Cell Distribution Width 14.7, Platelet Count 219, Mean Platelet Volume 6.1L, Neutrophils (%) (Auto) 78.3H, Lymphocytes (%) (Auto) 14.6L, Monocytes (%) (Auto) 5.3, Eosinophils (%) (Auto) 1.4, Basophils (%) (Auto) 0.5, Prothrombin Time 25.6H, Prothromb Time International Ratio 2.4H, Sodium Level 141, Potassium Level 3.5, Chloride Level 102, Carbon Dioxide Level 35H, Anion Gap 4L, Blood Urea Nitrogen 29H, Creatinine 1.6H, Estimat Glomerular Filtration Rate , Glucose Level 188H, Calcium Level 8.4L, Phosphorus Level 3.4, Magnesium Level 1.3L, Pro-B-Type Natriuretic Peptide 2522H Current Medications Medications (Trade) Dose Ordered Sig/Tam Route PRN Reason Start Time Stop Time Status Last Admin Dose Admin Acetaminophen (Tylenol) 650 mg Q6H PRN ORAL Mild Pain/Temp > 100.5 07/18/17 22:30 08/17/17 22:29 Atorvastatin Calcium (Lipitor) 10 mg QHS ORAL 07/18/17 21:00 08/17/17 20:59 07/24/17 20:40 Ceftriaxone Sodium 1 gm/ Sodium Chloride 55 ml @ 110 mls/hr QHS IVPB 07/20/17 21:00 07/27/17 20:59 07/24/17 20:27 Dextrose (Dextrose 50%) STAT PRN IV Hypoglycemia 07/18/17 18:30 08/17/17 18:29 Levothyroxine Sodium (Synthroid) 75 mcg DAILY@0630 ORAL 07/19/17 06:30 08/18/17 06:29 07/25/17 06:48 Linezolid 300 ml @ 300 mls/hr Q12HR IVPB 07/20/17 21:00 07/27/17 20:59 07/24/17 21:11 Pantoprazole (Protonix) 40 mg DAILY ORAL 07/19/17 12:00 08/18/17 11:59 07/25/17 08:55 Sitagliptin Phosphate (Januvia) 25 mg ACBREAKFAST ORAL 07/21/17 06:30 08/20/17 06:29 07/25/17 06:48 Warfarin Sodium (Coumadin per pharmacy) 1 ea DAILY PRN MISC Per rx protocol 07/18/17 18:30 08/17/17 18:29 Warfarin Sodium (Coumadin) 1 mg COUMADIN ONCE ORAL 07/25/17 17:00 07/25/17 17:01 MAE DIEGO Jul 25, 2017 13:02
--- NOTE | 2017-07-25 13:02 | Diagnostic Imaging Report ---
Indication: Cough Comparison: 07/23/2017 A single view chest radiograph was obtained. Findings: No definite infiltrate or pulmonary vascular congestion identified. The heart is moderately enlarged. The aorta is mildly enlarged and moderately calcified consistent with atherosclerotic vascular disease. The bones are osteopenic. Impression: No acute disease
--- NOTE | 2017-07-25 13:57 | Infectious Diseases Prog Note ---
Assessment/Plan Problems: (1) Sepsis Assessment & Plan: with coag negative staphylococcus spp grew out of four bottles , most likely real, source? continue zyvox for bacteremia , keep off vancomycin for now to avoid nephrotoxicity , repeated blood culture to confirm clearance is negative on 07/20 , 2D ECHO didn't show any vegetations to suggest endocarditis . will need two weeks of iv antibiotics for her bacteremia from the clearance date , doesn't meet criteria for endocarditis. (2) UTI (urinary tract infection) Assessment & Plan: with klebsiella pneumonia , continue ceftriaxon for 7 days (3) Respiratory distress Assessment & Plan: improved, most likely due to CHF and ASTHMA exacerbation , continue inhalers and diuretics as per renal , close monitor of UOP and renal function (4) Asthma exacerbation Assessment & Plan: continue inhalers, taper steroids, continue antibiotics , monitor CXR (5) WENDY (acute kidney injury) Assessment & Plan: improving, keep off vancomycin to avoid further nephrotoxicity , hold diuresis if needed, monitor renal function, avoid nephrotoxics (6) Bradycardia Assessment & Plan: suspect due to beta timbo , dose was decreased, cardiology is following (7) Leukocytosis Assessment & Plan: suspect reactive due to recent steroids and volume contraction , now off diuretics and steroids continue to monitor wbc . Subjective Constitutional: Reports: no symptoms HEENT: Reports: no symptoms Respiratory: Reports: no symptoms Breasts: Reports: no symptoms Cardiovascular: Reports: no symptoms Gastrointestinal/Abdominal: Reports: no symptoms Genitourinary: Reports: no symptoms Neurologic: Reports: no symptoms Psychiatric: Reports: no symptoms Skin: Reports: no symptoms Endocrine: Reports: no symptoms Hematologic: Reports: no symptoms Musculoskeletal: Reports: no symptoms Allergies: Coded Allergies: No Known Allergies (Unverified , 07/18/17) Subjective she was comfortable, sitting up in bed , alert, but slowly responding to verbal commands . no fever or chills, no cough or SOB , no diarrhea. didn't eat today as per wound care coordinator Objective Vital Signs Last 24 Hour Vital Signs Date Time Temp Pulse Resp B/P (MAP) Pulse Ox O2 Delivery O2 Flow Rate FiO2 07/25/17 12:00 55 07/25/17 12:00 97.7 62 16 113/62 100 Nasal Cannula 2.0 97.7 07/25/17 08:02 72 07/25/17 08:00 97.8 64 112/48 96 Nasal Cannula 2.0 97.8 07/25/17 07:33 100 Nasal Cannula 2.0 28 07/25/17 07:33 Nasal Cannula 2.0 28 07/25/17 07:26 107 07/25/17 04:30 97.7 111 18 108/64 99 Nasal Cannula 2.0 97.7 07/25/17 04:00 109 07/25/17 00:00 103 07/25/17 00:00 97.9 103 14 105/63 99 Nasal Cannula 2.0 97.9 07/24/17 20:00 60 07/24/17 20:00 97.7 63 18 104/58 99 Nasal Cannula 2.0 97.7 07/24/17 19:02 100 Nasal Cannula 2.0 28 07/24/17 19:02 Nasal Cannula 2.0 28 07/24/17 16:00 59 20 105/58 99 Nasal Cannula 2.0 07/24/17 16:00 56 Height (Feet): 5 Weight (Pounds): 151 General Appearance: WD/WN, no acute distress HEENT: normocephalic, atraumatic, anicteric, mucous membranes moist, PERRL Respiratory/Chest: chest wall non-tender, no respiratory distress, no accessory muscle use, decreased breath sounds, expiratory wheezing Cardiovascular: normal peripheral pulses, normal rate, regular rhythm, no gallop/murmur, no JVD Abdomen: normal bowel sounds, soft, non tender, no organomegaly, no mass, no scars, distended Extremities: no cyanosis, no clubbing Skin: no rash, no lesions, no ulcers Neurologic/Psychiatric: alert, responsive Musculoskeletal: normal muscle bulk, no effusion Laboratory Tests Test 07/25/17 03:15 White Blood Count 13.8 K/UL (4.8-10.8) H Red Blood Count 3.84 M/UL (4.20-5.40) L Hemoglobin 10.5 G/DL (12.0-16.0) L Hematocrit 32.7 % (37.0-47.0) L Mean Corpuscular Volume 85 FL (80-99) Mean Corpuscular Hemoglobin 27.3 PG (27.0-31.0) Mean Corpuscular Hemoglobin Concent 32.0 G/DL (32.0-36.0) Red Cell Distribution Width 14.7 % (11.6-14.8) Platelet Count 219 K/UL (150-450) Mean Platelet Volume 6.1 FL (6.5-10.1) L Neutrophils (%) (Auto) 78.3 % (45.0-75.0) H Lymphocytes (%) (Auto) 14.6 % (20.0-45.0) L Monocytes (%) (Auto) 5.3 % (1.0-10.0) Eosinophils (%) (Auto) 1.4 % (0.0-3.0) Basophils (%) (Auto) 0.5 % (0.0-2.0) Prothrombin Time 25.6 SEC (9.30-11.50) H Prothromb Time International Ratio 2.4 (0.9-1.1) H Sodium Level 141 MMOL/L (136-145) Potassium Level 3.5 MMOL/L (3.5-5.1) Chloride Level 102 MMOL/L (98-107) Carbon Dioxide Level 35 MMOL/L (21-32) H Anion Gap 4 mmol/L (5-15) L Blood Urea Nitrogen 29 mg/dL (7-18) H Creatinine 1.6 MG/DL (0.55-1.30) H Estimat Glomerular Filtration Rate mL/min (>60) Glucose Level 188 MG/DL (74-106) H Calcium Level 8.4 MG/DL (8.5-10.1) L Phosphorus Level 3.4 MG/DL (2.5-4.9) Magnesium Level 1.3 MG/DL (1.8-2.4) L Pro-B-Type Natriuretic Peptide 2522 pg/mL (0-125) H Current Medications Medications (Trade) Dose Ordered Sig/Tam Route PRN Reason Start Time Stop Time Status Last Admin Dose Admin Acetaminophen (Tylenol) 650 mg Q6H PRN ORAL Mild Pain/Temp > 100.5 07/18/17 22:30 08/17/17 22:29 Atorvastatin Calcium (Lipitor) 10 mg QHS ORAL 07/18/17 21:00 08/17/17 20:59 07/24/17 20:40 Ceftriaxone Sodium 1 gm/ Sodium Chloride 55 ml @ 110 mls/hr QHS IVPB 07/20/17 21:00 07/27/17 20:59 07/24/17 20:27 Dextrose (Dextrose 50%) STAT PRN IV Hypoglycemia 07/18/17 18:30 08/17/17 18:29 Levothyroxine Sodium (Synthroid) 75 mcg DAILY@0630 ORAL 07/19/17 06:30 08/18/17 06:29 07/25/17 06:48 Linezolid 300 ml @ 300 mls/hr Q12HR IVPB 07/20/17 21:00 07/27/17 20:59 07/25/17 13:11 Pantoprazole (Protonix) 40 mg DAILY ORAL 07/19/17 12:00 08/18/17 11:59 07/25/17 08:55 Sitagliptin Phosphate (Januvia) 25 mg ACBREAKFAST ORAL 07/21/17 06:30 08/20/17 06:29 07/25/17 06:48 Warfarin Sodium (Coumadin per pharmacy) 1 ea DAILY PRN MISC Per rx protocol 07/18/17 18:30 08/17/17 18:29 Warfarin Sodium (Coumadin) 1 mg COUMADIN ONCE ORAL 07/25/17 17:00 07/25/17 17:01 Juan Foy M.D. Jul 25, 2017 13:57
[2017-07-25 16:00] VITALS: BP 116/79
[2017-07-25] MEDS ORDERED: Warfarin Sodium 1mg ORAL ONE (17:00)
--- NOTE | 2017-07-25 19:42 | General Progress Note ---
Assessment/Plan Assessment/Plan 1) CHF is better 2) UTI with sepsis due to Klesiella 3) ? staph bacteremia, ? source, R/O SBE 4) CopD exacerbation 5) WENDY improved with diuresis pointing toward cardio-renal syndrome 6) A. Fib 7) some urinary retention 8) Some Metabolic alkalosis Plan: Continue IV ATB's Will probably will need BISI Physical RX awaiting serum C3 and C4 and CH50 Will give Lasix 80 mg IV + Diamox 500 mg IV Q8x3 Replete K+ and magnesium BCX's x2 Labs in AM Subjective Allergies: Coded Allergies: No Known Allergies (Unverified , 07/18/17) Subjective She is had good diuresis up to yesterday, there is HR is in the 130-140's, she had HR in the 30's yesterday so metoprolol was discontinued, she is off of O2, CXR is showing improved CHF Objective Last 24 Hour Vital Signs Date Time Temp Pulse Resp B/P (MAP) Pulse Ox O2 Delivery O2 Flow Rate FiO2 07/25/17 16:00 97.9 136 18 116/79 97 Room Air 97.9 07/25/17 16:00 138 07/25/17 12:00 55 07/25/17 12:00 97.7 62 16 113/62 100 Nasal Cannula 2.0 97.7 07/25/17 08:02 72 07/25/17 08:00 97.8 64 112/48 96 Nasal Cannula 2.0 97.8 07/25/17 07:33 100 Nasal Cannula 2.0 28 07/25/17 07:33 Nasal Cannula 2.0 28 07/25/17 07:26 107 07/25/17 04:30 97.7 111 18 108/64 99 Nasal Cannula 2.0 97.7 07/25/17 04:00 109 07/25/17 00:00 103 07/25/17 00:00 97.9 103 14 105/63 99 Nasal Cannula 2.0 97.9 07/24/17 20:00 60 07/24/17 20:00 97.7 63 18 104/58 99 Nasal Cannula 2.0 97.7 Intake and Output 07/24/17 07/25/17 19:00 07:00 Intake Total 800 ml 480 ml Output Total 1000 ml 500 ml Balance -200 ml -20 ml Intake Oral 500 ml 125 ml IV Total 300 ml 355 ml Output Urine Total 1000 ml 500 ml # Bowel Movements 1 1 Laboratory Tests 07/25/17 03:15: White Blood Count 13.8H, Red Blood Count 3.84L, Hemoglobin 10.5L, Hematocrit 32.7L, Mean Corpuscular Volume 85, Mean Corpuscular Hemoglobin 27.3, Mean Corpuscular Hemoglobin Concent 32.0, Red Cell Distribution Width 14.7, Platelet Count 219, Mean Platelet Volume 6.1L, Neutrophils (%) (Auto) 78.3H, Lymphocytes (%) (Auto) 14.6L, Monocytes (%) (Auto) 5.3, Eosinophils (%) (Auto) 1.4, Basophils (%) (Auto) 0.5, Prothrombin Time 25.6H, Prothromb Time International Ratio 2.4H, Sodium Level 141, Potassium Level 3.5, Chloride Level 102, Carbon Dioxide Level 35H, Anion Gap 4L, Blood Urea Nitrogen 29H, Creatinine 1.6H, Estimat Glomerular Filtration Rate , Glucose Level 188H, Calcium Level 8.4L, Phosphorus Level 3.4, Magnesium Level 1.3L, Pro-B-Type Natriuretic Peptide 2522H Height (Feet): 5 Weight (Pounds): 151 General Appearance: WD/WN, no apparent distress EENT: PERRL/EOMI Neck: non-tender, supple Cardiovascular: normal rate, tachycardia, irregularly irregular Respiratory/Chest: chest wall non-tender, expiratory wheezing Abdomen: normal bowel sounds, non tender, soft Extremities: normal range of motion, non-tender Edema: moderate edema Neurologic: nursing admin II-XII grossly normal, disoriented BANDAR NAZARIO Jul 25, 2017 19:42
[2017-07-25 20:00] VITALS: BP 102/72
[2017-07-25] MEDS ORDERED: Digoxin 0.5mg/2ml Inj IVP ONE (20:00)
[2017-07-25] MEDS: Metoprolol Tartrate 12.5mg TAB ORAL SCH (21:25)
[2017-07-25] MEDS: cefTRIAXone 1 GM in NS 55 ML IVPB SCH (21:25)
[2017-07-25] MEDS: acetaZOLAMIDE 500mg Inj IVP SCH (22:54)
[2017-07-26] VITALS: BP 105/45
[2017-07-26] MEDS: Albuterol ud Inhalation HHN PRN ×2 (01:30→06:50)
[2017-07-26 04:00] VITALS: BP 113/46
[2017-07-26 04:51] LABS: BASOPHILS % (AUTO) 0.4 % (0.0-2.0); EOSINOPHILS % (AUTO) 1.2 % (0.0-3.0); HEMATOCRIT 33.1 % (37.0-47.0); HEMOGLOBIN 10.6 G/DL (12.0-16.0); MEAN CORPUSCULAR VOLUME 86 FL (80-99); MONOCYTES % (AUTO) 4.7 % (1.0-10.0); NEUTROPHILS % (AUTO) 81.7 % (45.0-75.0); PLATELET COUNT 212 K/UL (150-450); RED BLOOD COUNT 3.87 M/UL (4.20-5.40); RED CELL DISTRIBUTION WIDTH 15.4 % (11.6-14.8); WHITE BLOOD COUNT 14.8 K/UL (4.8-10.8)
[2017-07-26 04:55] LABS: INR 2.8 (0.9-1.1)
[2017-07-26 05:03] LABS: ALANINE AMINOTRANSFERASE 48 U/L (12-78); ALBUMIN 2.8 G/DL (3.4-5.0); ALBUMIN/GLOBULIN RATIO 0.8 (1.0-2.7); ALKALINE PHOSPHATASE 62 U/L (46-116); ANION GAP 8 mmol/L (5-15); ASPARTATE AMINO TRANSFERASE 16 U/L (15-37); BILIRUBIN,TOTAL 0.3 MG/DL (0.2-1.0); BLOOD UREA NITROGEN 24 mg/dL (7-18); CALCIUM 8.9 MG/DL (8.5-10.1); CARBON DIOXIDE 30 MMOL/L (21-32); CHLORIDE 100 MMOL/L (98-107); CREATININE 1.6 MG/DL (0.55-1.30); SODIUM 138 MMOL/L (136-145)
[2017-07-26] MEDS: acetaZOLAMIDE 500mg Inj IVP SCH ×3 (05:37→21:01)
[2017-07-26 08:00] VITALS: BP 123/56
--- NOTE | 2017-07-26 09:11 | Consultation ---
Consult Note Consult Note Cardiac EP Pt seen, examined and chart reviewed. Full consult dictated #[id number] CHINMAY COOK Jul 26, 2017 09:11
[2017-07-26] MEDS: Metoprolol Tartrate 12.5mg TAB ORAL SCH ×2 (09:21→20:56)
--- NOTE | 2017-07-26 11:13 | General Progress Note ---
Assessment/Plan Assessment/Plan 1) CHF is better, but still in CHF clinically 2) UTI with sepsis due to Klesiella 3) ? staph bacteremia, ? source, R/O SBE 4) CopD exacerbation 5) WENDY improving with diuresis pointing toward cardio-renal syndrome 6) A. 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 Fib 10 Leukocytosis ? silent aspirations Plan: Continue IV ATB's Will probably will need BISI Physical RX Will get swallow eval Will give Lasix 80 mg IV q8 x2 + Diamox 500 mg IV Q8x3 Replete K+ Labs in AM Subjective Allergies: Coded Allergies: No Known Allergies (Unverified , 07/18/17) Subjective She is still having intermittent A. Fib with RVR, mostly with exercise, also episodes of bradycaria with metoprolol, magnesium is 2.1 today, she coughs when eating Objective Last 24 Hour Vital Signs Date Time Temp Pulse Resp B/P (MAP) Pulse Ox O2 Delivery O2 Flow Rate FiO2 07/26/17 09:21 67 123/56 07/26/17 08:00 99.0 89 20 123/56 100 Room Air 99.0 07/26/17 06:59 66 20 96 Nasal Cannula 2.0 28 07/26/17 06:50 100 Nasal Cannula 2.0 28 07/26/17 06:50 62 18 100 Nasal Cannula 2.0 28 07/26/17 06:50 28 07/26/17 06:50 Nasal Cannula 2.0 28 07/26/17 04:00 98.4 63 16 113/46 100 Room Air 98.4 07/26/17 04:00 62 07/26/17 02:26 60 18 96 Facial 45 07/26/17 01:30 45 07/26/17 01:29 63 18 99 Bi-pap 45 07/26/17 00:35 71 18 94 Facial 45 07/26/17 00:10 64 21 96 Bi-pap 45 07/26/17 00:00 97.4 68 18 105/45 98 Room Air 97.4 07/25/17 22:23 Nasal Cannula 2.0 28 07/25/17 22:23 97 Nasal Cannula 2.0 28 07/25/17 21:25 93 106/74 07/25/17 20:00 98.1 128 21 102/72 98 Room Air 98.1 07/25/17 20:00 108 07/25/17 20:00 80 07/25/17 16:00 97.9 136 18 116/79 97 Room Air 97.9 07/25/17 16:00 138 07/25/17 12:00 55 07/25/17 12:00 97.7 62 16 113/62 100 Nasal Cannula 2.0 97.7 Intake and Output 07/25/17 07/26/17 19:00 07:00 Intake Total 1125 ml 405 ml Output Total 300 ml 1100 ml Balance 825 ml -695 ml Intake Oral 525 ml 50 ml IV Total 600 ml 355 ml Output Urine Total 300 ml 1100 ml # Bowel Movements 1 Laboratory Tests 07/26/17 03:40: White Blood Count 14.8H, Red Blood Count 3.87L, Hemoglobin 10.6L, Hematocrit 33.1L, Mean Corpuscular Volume 86, Mean Corpuscular Hemoglobin 27.4, Mean Corpuscular Hemoglobin Concent 32.1, Red Cell Distribution Width 15.4H, Platelet Count 212, Mean Platelet Volume 6.6, Neutrophils (%) (Auto) 81.7H, Lymphocytes (%) (Auto) 12.0L, Monocytes (%) (Auto) 4.7, Eosinophils (%) (Auto) 1.2, Basophils (%) (Auto) 0.4, Prothrombin Time 29.4H, Prothromb Time International Ratio 2.8H, Sodium Level 138, Potassium Level 4.0, Chloride Level 100, Carbon Dioxide Level 30, Anion Gap 8, Blood Urea Nitrogen 24H, Creatinine 1.6H, Estimat Glomerular Filtration Rate , Glucose Level 207H, Calcium Level 8.9 , Magnesium Level 2.1, Total Bilirubin 0.3, Aspartate Amino Transf (AST/SGOT) 16 , Alanine Aminotransferase (ALT/SGPT) 48, Alkaline Phosphatase 62, Total Protein 6.3L, Albumin 2.8L, Globulin 3.5, Albumin/Globulin Ratio 0.8L Height (Feet): 5 Weight (Pounds): 151 General Appearance: WD/WN, no apparent distress EENT: PERRL/EOMI Neck: non-tender, normal alignment, supple Cardiovascular: JVD - High, tachycardia, irregularly irregular Respiratory/Chest: expiratory wheezing Abdomen: normal bowel sounds, non tender Extremities: normal range of motion, non-tender Edema: moderate edema 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
[2017-07-26] MEDS: Furosemide 80mg tab ORAL SCH ×2 (11:51→18:58)
[2017-07-26 12:00] VITALS: BP 116/60
--- NOTE | 2017-07-26 15:14 | Infectious Diseases Prog Note ---
Assessment/Plan Problems: (1) Sepsis Assessment & Plan: with coag negative staphylococcus spp grew out of four bottles , most likely real, source? continue zyvox for now , repeated blood culture to confirm clearance is negative on 07/20 , 2D ECHO didn't show any vegetations to suggest endocarditis . will need two weeks of iv antibiotics for her bacteremia from the clearance date , doesn't meet criteria for endocarditis ( low suspicion) (2) UTI (urinary tract infection) Assessment & Plan: with klebsiella pneumonia , S/P ceftriaxon treatment . (3) Respiratory distress Assessment & Plan: improved, most likely due to CHF and ASTHMA exacerbation , continue inhalers and diuretics as per renal , close monitor of UOP and renal function (4) Asthma exacerbation Assessment & Plan: continue inhalers, monitor CXR (5) WENDY (acute kidney injury) Assessment & Plan: improving, keep off vancomycin to avoid further nephrotoxicity , hold diuresis if needed, monitor renal function, avoid nephrotoxics (6) Leukocytosis Assessment & Plan: suspect reactive due to recent steroids and volume contraction , repeated blood culture is pending , will order urine culture too , monitor wbc . Subjective Constitutional: Reports: no symptoms HEENT: Reports: no symptoms Respiratory: Reports: dry cough, other - wheezing Cardiovascular: Reports: no symptoms Gastrointestinal/Abdominal: Reports: no symptoms Genitourinary: Reports: no symptoms Neurologic: Reports: weakness Psychiatric: Reports: depression Skin: Reports: no symptoms Endocrine: Reports: no symptoms Hematologic: Reports: no symptoms Musculoskeletal: Reports: no symptoms Allergies: Coded Allergies: No Known Allergies (Unverified , 07/18/17) Subjective she was comfortable, sitting up in bed , alert, but slowly responding to verbal commands . no fever or chills, no cough or SOB , no diarrhea. didn't eat today as per housekeeper caregiver Objective Vital Signs Last 24 Hour Vital Signs Date Time Temp Pulse Resp B/P (MAP) Pulse Ox O2 Delivery O2 Flow Rate FiO2 07/26/17 12:00 98.4 105 19 116/60 100 Nasal Cannula 2.0 98.4 07/26/17 10:31 106 07/26/17 09:21 67 123/56 07/26/17 08:00 99.0 89 20 123/56 100 Room Air 99.0 07/26/17 07:48 109 07/26/17 06:59 66 20 96 Nasal Cannula 2.0 28 07/26/17 06:50 100 Nasal Cannula 2.0 28 07/26/17 06:50 62 18 100 Nasal Cannula 2.0 28 07/26/17 06:50 28 07/26/17 06:50 Nasal Cannula 2.0 28 07/26/17 04:00 98.4 63 16 113/46 100 Room Air 98.4 07/26/17 04:00 62 07/26/17 02:26 60 18 96 Facial 45 07/26/17 01:30 45 07/26/17 01:29 63 18 99 Bi-pap 45 07/26/17 00:35 71 18 94 Facial 45 07/26/17 00:10 64 21 96 Bi-pap 45 07/26/17 00:00 97.4 68 18 105/45 98 Room Air 97.4 07/25/17 22:23 Nasal Cannula 2.0 28 07/25/17 22:23 97 Nasal Cannula 2.0 28 07/25/17 21:25 93 106/74 07/25/17 20:00 98.1 128 21 102/72 98 Room Air 98.1 07/25/17 20:00 108 07/25/17 20:00 80 07/25/17 16:00 97.9 136 18 116/79 97 Room Air 97.9 07/25/17 16:00 138 Height (Feet): 5 Weight (Pounds): 151 General Appearance: WD/WN, no acute distress HEENT: normocephalic, atraumatic, anicteric, mucous membranes moist, PERRL Respiratory/Chest: chest wall non-tender, no respiratory distress, no accessory muscle use, decreased breath sounds, inspiratory wheezing Cardiovascular: normal peripheral pulses, normal rate, regular rhythm, no gallop/murmur, no JVD Abdomen: normal bowel sounds, soft, non tender, no organomegaly, non distended , no mass, no scars Extremities: no cyanosis, no clubbing Skin: no rash, no lesions, no ulcers Neurologic/Psychiatric: alert, responsive Laboratory Tests Test 07/26/17 03:40 07/26/17 14:25 White Blood Count 14.8 K/UL (4.8-10.8) H Red Blood Count 3.87 M/UL (4.20-5.40) L Hemoglobin 10.6 G/DL (12.0-16.0) L Hematocrit 33.1 % (37.0-47.0) L Mean Corpuscular Volume 86 FL (80-99) Mean Corpuscular Hemoglobin 27.4 PG (27.0-31.0) Mean Corpuscular Hemoglobin Concent 32.1 G/DL (32.0-36.0) Red Cell Distribution Width 15.4 % (11.6-14.8) H Platelet Count 212 K/UL (150-450) Mean Platelet Volume 6.6 FL (6.5-10.1) Neutrophils (%) (Auto) 81.7 % (45.0-75.0) H Lymphocytes (%) (Auto) 12.0 % (20.0-45.0) L Monocytes (%) (Auto) 4.7 % (1.0-10.0) Eosinophils (%) (Auto) 1.2 % (0.0-3.0) Basophils (%) (Auto) 0.4 % (0.0-2.0) Prothrombin Time 29.4 SEC (9.30-11.50) H Prothromb Time International Ratio 2.8 (0.9-1.1) H Sodium Level 138 MMOL/L (136-145) Potassium Level 4.0 MMOL/L (3.5-5.1) Chloride Level 100 MMOL/L (98-107) Carbon Dioxide Level 30 MMOL/L (21-32) Anion Gap 8 mmol/L (5-15) Blood Urea Nitrogen 24 mg/dL (7-18) H Creatinine 1.6 MG/DL (0.55-1.30) H Estimat Glomerular Filtration Rate mL/min (>60) Glucose Level 207 MG/DL (74-106) H Calcium Level 8.9 MG/DL (8.5-10.1) Magnesium Level 2.1 MG/DL (1.8-2.4) Total Bilirubin 0.3 MG/DL (0.2-1.0) Aspartate Amino Transf (AST/SGOT) 16 U/L (15-37) Alanine Aminotransferase (ALT/SGPT) 48 U/L (12-78) Alkaline Phosphatase 62 U/L (46-116) Total Protein 6.3 G/DL (6.4-8.2) L Albumin 2.8 G/DL (3.4-5.0) L Globulin 3.5 g/dL Albumin/Globulin Ratio 0.8 (1.0-2.7) L Arterial Blood pH 7.601 (7.350-7.450) Arterial Blood Partial Pressure CO2 25.4 mmHg (35.0-45.0) L Arterial Blood Partial Pressure O2 183.4 mmHg (75.0-100.0) H Arterial Blood HCO3 24.4 mmol/L (22.0-26.0) Arterial Blood Oxygen Saturation 98.5 % (92.0-98.0) H Arterial Blood Base Excess 3.7 Tom Test Positive Current Medications Medications (Trade) Dose Ordered Sig/Tam Route PRN Reason Start Time Stop Time Status Last Admin Dose Admin Acetaminophen (Tylenol) 650 mg Q6H PRN ORAL Mild Pain/Temp > 100.5 07/18/17 22:30 08/17/17 22:29 Acetazolamide (Diamox 500mg Inj) 500 mg Q8HR IVP 07/26/17 14:00 07/27/17 06:01 Albuterol Sulfate (Proventil) 2.5 mg Q4H PRN HHN Shortness of Breath 07/26/17 01:00 07/31/17 00:59 07/26/17 06:50 Atorvastatin Calcium (Lipitor) 10 mg QHS ORAL 07/18/17 21:00 08/17/17 20:59 07/25/17 21:24 Ceftriaxone Sodium 1 gm/ Sodium Chloride 55 ml @ 110 mls/hr QHS IVPB 07/20/17 21:00 07/27/17 20:59 07/25/17 21:25 Dextrose (Dextrose 50%) STAT PRN IV Hypoglycemia 07/18/17 18:30 08/17/17 18:29 Furosemide (Lasix) 80 mg Q8H ORAL 07/26/17 11:00 07/26/17 19:01 07/26/17 11:51 Levothyroxine Sodium (Synthroid) 75 mcg DAILY@0630 ORAL 07/19/17 06:30 08/18/17 06:29 07/25/17 06:48 Linezolid 300 ml @ 300 mls/hr Q12HR IVPB 07/20/17 21:00 08/03/17 23:59 07/26/17 09:20 Metoprolol Tartrate (Lopressor) 12.5 mg Q12HR ORAL 07/25/17 21:00 08/24/17 20:59 07/26/17 09:21 Pantoprazole (Protonix) 40 mg DAILY ORAL 07/19/17 12:00 08/18/17 11:59 07/26/17 09:21 Sitagliptin Phosphate (Januvia) 25 mg ACBREAKFAST ORAL 07/21/17 06:30 08/20/17 06:29 07/25/17 06:48 Warfarin Sodium (Coumadin per pharmacy) 1 ea DAILY PRN MISC Per rx protocol 07/18/17 18:30 08/17/17 18:29 Warfarin Sodium (Coumadin) 1 mg COUMADIN ONCE ORAL 07/26/17 17:00 07/26/17 17:01 Juan Foy M.D. Jul 26, 2017 15:14
--- NOTE | 2017-07-26 15:30 | Consultation ---
DATE OF CONSULTATION: 07/26/2017 CONSULTING PHYSICIAN: Dayami Leon M.D. REQUESTING PHYSICIAN: Saul Lindsay M.D. REASON FOR CONSULT: Consideration for permanent pacemaker. HISTORY OF PRESENT ILLNESS: History is obtained primarily from the chart and treating providers as the patient is unable to give much history due to dementia. The patient is a 76-year-old [place] woman with a history of sleep apnea, COPD, and persistent atrial fibrillation, on warfarin anticoagulation. She was admitted with dyspnea, tachypnea, and hypoxia on 07/18/2017, she was diagnosed with congestive heart failure, atrial fibrillation with rapid ventricular rate as well as sepsis with urinalysis positive for white blood cells and bacteria, and culture growing Klebsiella. She also had bacteremia with coagulase-negative Staph in two blood cultures. She was treated with diuretics, Lasix and Diamox. She was given metoprolol and digoxin for ventricular rate control and atrial fibrillation and also was evaluated by Infectious Disease, Dr. Foy and started on intravenous antibiotics. Over the past few days, she was noted to become bradycardic with ventricular rate and atrial fibrillation as low as the high 30s to low 40s. During physical therapy, she had the dose of metoprolol lowered, but then developed rapidly conducted atrial fibrillation rates, 150s. Cardiac electrophysiology evaluation was requested. The patient herself gives minimal verbal responses and is an unreliable historian due to dementia. MEDICATIONS: Currently warfarin 1 mg today (per pharmacy), albuterol q.4 h. p.r.n. inhaler, Diamox 500 mg IV q.8 h., metoprolol 12.5 mg p.o. q.12 h., Januvia 25 mg with breakfast, ceftriaxone 1 g IV q.24 h., linezolid q.12 h., Protonix 40 mg p.o. daily, Synthroid 75 mcg p.o. daily, Tylenol p.r.n., and atorvastatin 10 mg p.o. at bedtime. ALLERGIES: No known drug allergies. PAST MEDICAL HISTORY: As noted above. History of type 2 diabetes, history of dementia, history of persistent atrial fibrillation, history of COPD, obstructive sleep apnea, and anemia. SOCIAL HISTORY: She lives in an assisted care facility with a caregiver. She is a nonsmoker and has no history of alcohol abuse. PHYSICAL EXAMINATION: VITAL SIGNS: Blood pressure is 113/46, pulse 62 and irregular, respirations 16, and afebrile. GENERAL: Alert, obese, white female, in no acute distress. HEENT: Normocephalic and atraumatic. Pupils are equal, round, and reactive to light. Sclerae anicteric. Oral mucosa are moist. NECK: Supple. There is no jugular venous distention. No carotid bruits. LUNGS: Bilateral scattered rhonchi diffusely. No wheezes or rales. HEART: Irregularly irregular. S1, S2 with no murmur or S3. ABDOMEN: Obese, soft, nontender. No palpable mass. EXTREMITIES: Trace pedal edema bilaterally. DIAGNOSTIC AND LABORATORY DATA: Chest x-ray from 07/25/2017 shows cardiomegaly and ectatic aorta. INR is 2.8 today. Sodium 138, potassium 4.0, chloride 100, bicarbonate 30, BUN 24, creatinine 1.6, and glucose 207. Hemoglobin 10.6, white blood count 14,800, and platelets 212,000. Cultures as noted above. Urine culture from admission positive for Klebsiella. Blood cultures from admission 07/01 positive for coag-negative staph. EKG from 07/25/2017 shows atrial fibrillation with ventricular rate 102 beats per minute, low-voltage QRS, right axis deviation, poor R-wave progression V1 to V4, no ST-segment or T-wave changes. An echocardiogram from 07/19/2017 was technically difficult, but is reported to show normal left ventricular systolic function, EF 60% to 65%, moderate left ventricular hypertrophy, moderate mitral stenosis. ASSESSMENT AND RECOMMENDATIONS: The patient is a 76-year-old woman with multiple chronic medical problems as outlined above, who was admitted with congestive heart failure, rapidly conducted atrial fibrillation, and sepsis. She is being treated with antibiotics and has been treated with diuretics for diastolic congestive heart failure and metoprolol for ventricular rate control. She has had difficulty with episodes of tachycardia, rates up to the 150s alternating with bradycardia, rates as low as the 30s while awake in atrial fibrillation. There are also periods, which are very brief of sinus rhythm. She appears with sick sinus syndrome. I would agree with the recommendation for permanent pacing to allow treatment of atrial fibrillation without causing symptomatic bradycardia. I will discuss this further with the patient's family. She will need to be cleared from an Infectious Disease standpoint and also for INR to be corrected prior to any surgery. Thank you for allowing me to see her in electrophysiology consultation. I will discuss these findings and recommendations further with you. Dayami Leon M.D. DR: REX JOB#: [id number] CC:
--- NOTE | 2017-07-26 15:55 | Pulmonology Progress Note ---
Assessment/Plan Assessment/Plan 1. Acute respiratory failure requiring BiPAP, now improved. 2. Mild congestive heart failure. 3. Chronic asthma with exacerbation, improved 4. Obstructive sleep apnea, CPAP at night 5. Urinary tract infection, Klebsiella 6. 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 Diabetes. 8. Hypothyroidism 9. WENDY, 10. Hyponatremia BC neg abx per ID no resp distress, trial off O2 CPAP at night cont HHN disc w RN discussed with cardiology I will request duplex l lower extremities Subjective Interval Events: appears more congested. Has leukocytosis and respiratory alkalosi Constitutional: Reports: no symptoms HEENT: Repors: no symptoms Respiratory: Reports: productive cough, shortness of breath Cardiovascular: Reports: no symptoms Gastrointestinal/Abdominal: Reports: no symptoms Genitourinary: Reports: no symptoms Allergies: Coded Allergies: No Known Allergies (Unverified , 07/18/17) Objective Last 24 Hour Vital Signs Date Time Temp Pulse Resp B/P (MAP) Pulse Ox O2 Delivery O2 Flow Rate FiO2 07/26/17 12:00 98.4 105 19 116/60 100 Nasal Cannula 2.0 98.4 07/26/17 10:31 106 07/26/17 09:21 67 123/56 07/26/17 08:00 99.0 89 20 123/56 100 Room Air 99.0 07/26/17 07:48 109 07/26/17 06:59 66 20 96 Nasal Cannula 2.0 28 07/26/17 06:50 100 Nasal Cannula 2.0 28 07/26/17 06:50 62 18 100 Nasal Cannula 2.0 28 07/26/17 06:50 28 07/26/17 06:50 Nasal Cannula 2.0 28 07/26/17 04:00 98.4 63 16 113/46 100 Room Air 98.4 07/26/17 04:00 62 07/26/17 02:26 60 18 96 Facial 45 07/26/17 01:30 45 07/26/17 01:29 63 18 99 Bi-pap 45 07/26/17 00:35 71 18 94 Facial 45 07/26/17 00:10 64 21 96 Bi-pap 45 07/26/17 00:00 97.4 68 18 105/45 98 Room Air 97.4 07/25/17 22:23 Nasal Cannula 2.0 28 07/25/17 22:23 97 Nasal Cannula 2.0 28 07/25/17 21:25 93 106/74 07/25/17 20:00 98.1 128 21 102/72 98 Room Air 98.1 07/25/17 20:00 108 07/25/17 20:00 80 07/25/17 16:00 97.9 136 18 116/79 97 Room Air 97.9 07/25/17 16:00 138 Intake and Output 07/25/17 07/26/17 19:00 07:00 Intake Total 1125 ml 405 ml Output Total 300 ml 1100 ml Balance 825 ml -695 ml Intake Oral 525 ml 50 ml IV Total 600 ml 355 ml Output Urine Total 300 ml 1100 ml # Bowel Movements 1 General Appearance: no acute distress HEENT: normocephalic Respiratory/Chest: chest wall non-tender, decreased breath sounds, crackles/ rales Cardiovascular: normal peripheral pulses, normal rate Laboratory Tests 07/26/17 03:40: White Blood Count 14.8H, Red Blood Count 3.87L, Hemoglobin 10.6L, Hematocrit 33.1L, Mean Corpuscular Volume 86, Mean Corpuscular Hemoglobin 27.4, Mean Corpuscular Hemoglobin Concent 32.1, Red Cell Distribution Width 15.4H, Platelet Count 212, Mean Platelet Volume 6.6, Neutrophils (%) (Auto) 81.7H, Lymphocytes (%) (Auto) 12.0L, Monocytes (%) (Auto) 4.7, Eosinophils (%) (Auto) 1.2, Basophils (%) (Auto) 0.4, Prothrombin Time 29.4H, Prothromb Time International Ratio 2.8H, Sodium Level 138, Potassium Level 4.0, Chloride Level 100, Carbon Dioxide Level 30, Anion Gap 8, Blood Urea Nitrogen 24H, Creatinine 1.6H, Estimat Glomerular Filtration Rate , Glucose Level 207H, Calcium Level 8.9 , Magnesium Level 2.1, Total Bilirubin 0.3, Aspartate Amino Transf (AST/SGOT) 16 , Alanine Aminotransferase (ALT/SGPT) 48, Alkaline Phosphatase 62, Total Protein 6.3L, Albumin 2.8L, Globulin 3.5, Albumin/Globulin Ratio 0.8L 07/26/17 14:25: Arterial Blood pH 7.601*H, Arterial Blood Partial Pressure CO2 25.4L, Arterial Blood Partial Pressure O2 183.4H, Arterial Blood HCO3 24.4, Arterial Blood Oxygen Saturation 98.5H, Arterial Blood Base Excess 3.7, Tom Test Positive Current Medications Medications (Trade) Dose Ordered Sig/Tam Route PRN Reason Start Time Stop Time Status Last Admin Dose Admin Acetaminophen (Tylenol) 650 mg Q6H PRN ORAL Mild Pain/Temp > 100.5 07/18/17 22:30 08/17/17 22:29 Acetazolamide (Diamox 500mg Inj) 500 mg Q8HR IVP 07/26/17 14:00 07/27/17 06:01 07/26/17 15:14 Albuterol Sulfate (Proventil) 2.5 mg Q4H PRN HHN Shortness of Breath 07/26/17 01:00 07/31/17 00:59 07/26/17 06:50 Atorvastatin Calcium (Lipitor) 10 mg QHS ORAL 07/18/17 21:00 08/17/17 20:59 07/25/17 21:24 Dextrose (Dextrose 50%) STAT PRN IV Hypoglycemia 07/18/17 18:30 08/17/17 18:29 Furosemide (Lasix) 80 mg Q8H ORAL 07/26/17 11:00 07/26/17 19:01 07/26/17 11:51 Levothyroxine Sodium (Synthroid) 75 mcg DAILY@0630 ORAL 07/19/17 06:30 08/18/17 06:29 07/25/17 06:48 Linezolid 300 ml @ 300 mls/hr Q12HR IVPB 07/20/17 21:00 08/03/17 23:59 07/26/17 09:20 Metoprolol Tartrate (Lopressor) 12.5 mg Q12HR ORAL 07/25/17 21:00 08/24/17 20:59 07/26/17 09:21 Pantoprazole (Protonix) 40 mg DAILY ORAL 07/19/17 12:00 08/18/17 11:59 07/26/17 09:21 Sitagliptin Phosphate (Januvia) 25 mg ACBREAKFAST ORAL 07/21/17 06:30 08/20/17 06:29 07/25/17 06:48 Warfarin Sodium (Coumadin per pharmacy) 1 ea DAILY PRN MISC Per rx protocol 07/18/17 18:30 08/17/17 18:29 Warfarin Sodium (Coumadin) 1 mg COUMADIN ONCE ORAL 07/26/17 17:00 07/26/17 17:01 Arnaud Wick MD Jul 26, 2017 15:55
--- NOTE | 2017-07-26 15:57 | Diagnostic Imaging Report ---
Indication: NG tube placement Comparison: None Single view of the abdomen obtained Findings: NG tube is in good position within the stomach. Heart is enlarged. Aorta is moderately calcified. IMPRESSION: NG tube in good position
[2017-07-26 16:00] VITALS: BP 114/59
[2017-07-26] MEDS ORDERED: Warfarin Sodium 1mg ORAL ONE (17:00)
[2017-07-26 20:00] VITALS: BP 107/62
--- NOTE | 2017-07-26 20:50 | Cardiology Progress Note ---
Assessment/Plan Assessment/Plan 1. Acute on chronic diastolic heart failure possibly due to atrial fibrillation with rapid ventricular response, continue low dose beta-blockers till pacemaker is placed. 2. Dyspnea could be multifactorial in combination of chronic obstructive pulmonary disease and congestive heart failure. From the pulmonary standpoint, the patient may benefit from bronchodilators, possibly steroids. Oxygen and pulmonary toilet and inhalers. 3. 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 Abrams for EP copnsult. 4. Paroxysmal atrial fibrillation, on low dose metoprolol, keep the INR between 2 and 3. 5. Moderate mitral stenosis due to mitral annular calcification and mitral leaflet calcification. Subjective Subjective Most likely AT/AF with RVR. Objective Last 24 Hour Vital Signs Date Time Temp Pulse Resp B/P (MAP) Pulse Ox O2 Delivery O2 Flow Rate FiO2 07/26/17 20:33 Nasal Cannula 2.0 28 07/26/17 20:33 94 Nasal Cannula 2.0 28 07/26/17 16:00 98.7 64 16 114/59 100 Room Air 98.7 07/26/17 16:00 75 07/26/17 12:00 98.4 105 19 116/60 100 Nasal Cannula 2.0 98.4 07/26/17 10:31 106 07/26/17 09:21 67 123/56 07/26/17 08:00 99.0 89 20 123/56 100 Room Air 99.0 07/26/17 07:48 109 07/26/17 06:59 66 20 96 Nasal Cannula 2.0 28 07/26/17 06:50 100 Nasal Cannula 2.0 28 07/26/17 06:50 62 18 100 Nasal Cannula 2.0 28 07/26/17 06:50 28 07/26/17 06:50 Nasal Cannula 2.0 28 07/26/17 04:00 98.4 63 16 113/46 100 Room Air 98.4 07/26/17 04:00 62 07/26/17 02:26 60 18 96 Facial 45 07/26/17 01:30 45 07/26/17 01:29 63 18 99 Bi-pap 45 07/26/17 00:35 71 18 94 Facial 45 07/26/17 00:10 64 21 96 Bi-pap 45 07/26/17 00:00 97.4 68 18 105/45 98 Room Air 97.4 07/25/17 22:23 Nasal Cannula 2.0 28 07/25/17 22:23 97 Nasal Cannula 2.0 28 07/25/17 21:25 93 106/74 Intake and Output 07/25/17 07/26/17 19:00 07:00 Intake Total 1125 ml 405 ml Output Total 300 ml 1100 ml Balance 825 ml -695 ml Intake Oral 525 ml 50 ml IV Total 600 ml 355 ml Output Urine Total 300 ml 1100 ml # Bowel Movements 1 Laboratory Tests Test 07/26/17 03:40 07/26/17 14:25 White Blood Count 14.8 K/UL (4.8-10.8) H Red Blood Count 3.87 M/UL (4.20-5.40) L Hemoglobin 10.6 G/DL (12.0-16.0) L Hematocrit 33.1 % (37.0-47.0) L Mean Corpuscular Volume 86 FL (80-99) Mean Corpuscular Hemoglobin 27.4 PG (27.0-31.0) Mean Corpuscular Hemoglobin Concent 32.1 G/DL (32.0-36.0) Red Cell Distribution Width 15.4 % (11.6-14.8) H Platelet Count 212 K/UL (150-450) Mean Platelet Volume 6.6 FL (6.5-10.1) Neutrophils (%) (Auto) 81.7 % (45.0-75.0) H Lymphocytes (%) (Auto) 12.0 % (20.0-45.0) L Monocytes (%) (Auto) 4.7 % (1.0-10.0) Eosinophils (%) (Auto) 1.2 % (0.0-3.0) Basophils (%) (Auto) 0.4 % (0.0-2.0) Prothrombin Time 29.4 SEC (9.30-11.50) H Prothromb Time International Ratio 2.8 (0.9-1.1) H Sodium Level 138 MMOL/L (136-145) Potassium Level 4.0 MMOL/L (3.5-5.1) Chloride Level 100 MMOL/L (98-107) Carbon Dioxide Level 30 MMOL/L (21-32) Anion Gap 8 mmol/L (5-15) Blood Urea Nitrogen 24 mg/dL (7-18) H Creatinine 1.6 MG/DL (0.55-1.30) H Estimat Glomerular Filtration Rate mL/min (>60) Glucose Level 207 MG/DL (74-106) H Calcium Level 8.9 MG/DL (8.5-10.1) Magnesium Level 2.1 MG/DL (1.8-2.4) Total Bilirubin 0.3 MG/DL (0.2-1.0) Aspartate Amino Transf (AST/SGOT) 16 U/L (15-37) Alanine Aminotransferase (ALT/SGPT) 48 U/L (12-78) Alkaline Phosphatase 62 U/L (46-116) Total Protein 6.3 G/DL (6.4-8.2) L Albumin 2.8 G/DL (3.4-5.0) L Globulin 3.5 g/dL Albumin/Globulin Ratio 0.8 (1.0-2.7) L Arterial Blood pH 7.601 (7.350-7.450) Arterial Blood Partial Pressure CO2 25.4 mmHg (35.0-45.0) L Arterial Blood Partial Pressure O2 183.4 mmHg (75.0-100.0) H Arterial Blood HCO3 24.4 mmol/L (22.0-26.0) Arterial Blood Oxygen Saturation 98.5 % (92.0-98.0) H Arterial Blood Base Excess 3.7 Tom Test Positive Objective HEENT: Atraumatic and normocephalic. Anicteric. Pupils are equal, round, and reactive to light and accommodation. Extraocular muscles intact. NECK: JVP cannot be assessed as she is in a sitting position. No carotid bruit. Carotid upstrokes 2+ bilaterally. CARDIOVASCULAR: Normal S1 and S2. Irregularly irregular rhythm. A 2/6 mid systolic murmur at the left sternal border. PMI is at fourth intercostal space in the midclavicular line. LUNGS: Diminished breath sounds in both lungs. Did not appreciate any crackles. ABDOMEN: Obese. No hepatosplenomegaly. Positive bowel sounds. EXTREMITIES: No evidence of edema, clubbing, or cyanosis. DIETER BECKWITH Jul 26, 2017 20:50
[2017-07-27] VITALS: BP 140/68
[2017-07-27 04:00] VITALS: BP 146/64
[2017-07-27 04:57] LABS: BASOPHILS % (AUTO) 0.5 % (0.0-2.0); EOSINOPHILS % (AUTO) 0.4 % (0.0-3.0); HEMATOCRIT 32.6 % (37.0-47.0); HEMOGLOBIN 10.5 G/DL (12.0-16.0); LYMPHOCYTES % (AUTO) 14.7 % (20.0-45.0); MEAN CORPUSCULAR VOLUME 86 FL (80-99); MONOCYTES % (AUTO) 7.1 % (1.0-10.0); NEUTROPHILS % (AUTO) 77.2 % (45.0-75.0); PLATELET COUNT 190 K/UL (150-450); RED BLOOD COUNT 3.81 M/UL (4.20-5.40); RED CELL DISTRIBUTION WIDTH 15.4 % (11.6-14.8); WHITE BLOOD COUNT 11.6 K/UL (4.8-10.8)
[2017-07-27 04:58] LABS: INR 2.4 (0.9-1.1)
[2017-07-27 05:03] LABS: ANION GAP 8 mmol/L (5-15); BLOOD UREA NITROGEN 20 mg/dL (7-18); CALCIUM 9.2 MG/DL (8.5-10.1); CARBON DIOXIDE 32 MMOL/L (21-32); CHLORIDE 99 MMOL/L (98-107); CREATININE 1.7 MG/DL (0.55-1.30); POTASSIUM 3.5 MMOL/L (3.5-5.1); SODIUM 138 MMOL/L (136-145)
[2017-07-27] MEDS: sitaGLIPtin 25mg tab ORAL SCH (05:32)
[2017-07-27] MEDS: acetaZOLAMIDE 500mg Inj IVP SCH (05:32)
[2017-07-27] MEDS: Albuterol ud Inhalation HHN PRN (07:50)
[2017-07-27 08:02] VITALS: BP 121/58
[2017-07-27] MEDS: Metoprolol Tartrate 12.5mg TAB ORAL SCH ×2 (08:22→20:12)
--- NOTE | 2017-07-27 09:08 | Pulmonology Progress Note ---
Assessment/Plan Assessment/Plan 1. Acute respiratory failure requiring BiPAP, now improved. 2. Mild congestive heart failure. 3. Chronic asthma with exacerbation, improved 4. Obstructive sleep apnea, CPAP at night 5. Urinary tract infection, Klebsiella 6. Sepsis with INTERN in 08/31 BC 7. Diabetes. 8. Hypothyroidism 9. WENDY, 10. Hyponatremia BC neg abx per ID no resp distress, trial off O2 CPAP at night cont HHN disc w RN discussed with cardiology await duplex l lower extremities Subjective Interval Events: looking better Constitutional: Reports: no symptoms HEENT: Repors: no symptoms Respiratory: Reports: dry cough, shortness of breath Cardiovascular: Reports: no symptoms Gastrointestinal/Abdominal: Reports: no symptoms Allergies: Coded Allergies: No Known Allergies (Unverified , 07/18/17) Objective Last 24 Hour Vital Signs Date Time Temp Pulse Resp B/P (MAP) Pulse Ox O2 Delivery O2 Flow Rate FiO2 07/27/17 08:22 90 121/58 07/27/17 08:02 99.7 90 20 121/58 95 Room Air 99.7 07/27/17 07:59 88 24 Nasal Cannula 2.0 28 07/27/17 07:49 28 07/27/17 07:49 83 23 93 Nasal Cannula 2.0 28 07/27/17 07:43 94 Nasal Cannula 2.0 28 07/27/17 07:43 Nasal Cannula 2.0 28 07/27/17 04:00 90 07/27/17 04:00 98.6 88 15 146/64 99 Room Air 98.6 07/27/17 00:00 98.0 88 17 140/68 100 Room Air 98.0 07/27/17 00:00 94 07/26/17 20:56 81 107/62 07/26/17 20:33 Nasal Cannula 2.0 28 07/26/17 20:33 94 Nasal Cannula 2.0 28 07/26/17 20:00 98.4 81 20 107/62 100 Room Air 98.4 07/26/17 20:00 85 07/26/17 16:00 98.7 64 16 114/59 100 Room Air 98.7 07/26/17 16:00 75 07/26/17 12:00 98.4 105 19 116/60 100 Nasal Cannula 2.0 98.4 07/26/17 10:31 106 07/26/17 09:21 67 123/56 Intake and Output 07/26/17 07/27/17 19:00 07:00 Intake Total 420 ml 300 ml Output Total 600 ml 200 ml Balance -180 ml 100 ml Intake Oral 120 ml IV Total 300 ml 300 ml Output Urine Total 600 ml 200 ml General Appearance: no acute distress HEENT: normocephalic Respiratory/Chest: chest wall non-tender, decreased breath sounds, crackles/ rales Cardiovascular: normal peripheral pulses, normal rate Microbiology Date/Time Source Procedure Growth Status 07/25/17 10:20 Blood Blood Culture - Preliminary NO GROWTH AFTER 24 HOURS Resulted 07/25/17 10:10 Blood Blood Culture - Preliminary NO GROWTH AFTER 24 HOURS Resulted 07/26/17 17:25 Indwelling Cath Urine Culture - Preliminary NO GROWTH Resulted Laboratory Tests 07/26/17 14:25: Arterial Blood pH 7.601*H, Arterial Blood Partial Pressure CO2 25.4L, Arterial Blood Partial Pressure O2 183.4H, Arterial Blood HCO3 24.4, Arterial Blood Oxygen Saturation 98.5H, Arterial Blood Base Excess 3.7, Tom Test Positive 07/27/17 03:50: White Blood Count 11.6H, Red Blood Count 3.81L, Hemoglobin 10.5L, Hematocrit 32.6L, Mean Corpuscular Volume 86, Mean Corpuscular Hemoglobin 27.6, Mean Corpuscular Hemoglobin Concent 32.2, Red Cell Distribution Width 15.4H, Platelet Count 190, Mean Platelet Volume 6.5, Neutrophils (%) (Auto) 77.2H, Lymphocytes (%) (Auto) 14.7L, Monocytes (%) (Auto) 7.1, Eosinophils (%) (Auto) 0.4, Basophils (%) (Auto) 0.5, Prothrombin Time 24.9H, Prothromb Time International Ratio 2.4H, Sodium Level 138, Potassium Level 3.5, Chloride Level 99, Carbon Dioxide Level 32, Anion Gap 8, Blood Urea Nitrogen 20H, Creatinine 1.7H, Estimat Glomerular Filtration Rate , Glucose Level 167H, Calcium Level 9.2 , Magnesium Level 1.8 Current Medications Medications (Trade) Dose Ordered Sig/Tam Route PRN Reason Start Time Stop Time Status Last Admin Dose Admin Acetaminophen (Tylenol) 650 mg Q6H PRN ORAL Mild Pain/Temp > 100.5 07/18/17 22:30 08/17/17 22:29 Albuterol Sulfate (Proventil) 2.5 mg Q4H PRN HHN Shortness of Breath 07/26/17 01:00 07/31/17 00:59 07/27/17 07:50 Atorvastatin Calcium (Lipitor) 10 mg QHS ORAL 07/18/17 21:00 08/17/17 20:59 07/26/17 20:56 Dextrose (Dextrose 50%) STAT PRN IV Hypoglycemia 07/18/17 18:30 08/17/17 18:29 Lansoprazole (Prevacid) 30 mg DAILY ORAL 07/27/17 09:00 08/26/17 08:59 07/27/17 08:22 Levothyroxine Sodium (Synthroid) 75 mcg DAILY@0630 ORAL 07/19/17 06:30 08/18/17 06:29 07/27/17 05:32 Linezolid 300 ml @ 300 mls/hr Q12HR IVPB 07/20/17 21:00 08/03/17 23:59 07/27/17 08:22 Metoprolol Tartrate (Lopressor) 12.5 mg Q12HR ORAL 07/25/17 21:00 08/24/17 20:59 07/27/17 08:22 Sitagliptin Phosphate (Januvia) 25 mg ACBREAKFAST ORAL 07/21/17 06:30 08/20/17 06:29 07/25/17 06:48 Warfarin Sodium (Coumadin per pharmacy) 1 ea DAILY PRN MISC Per rx protocol 07/18/17 18:30 08/17/17 18:29 Warfarin Sodium (Coumadin) 2.5 mg COUMADIN ONCE ORAL 07/27/17 17:00 07/27/17 17:01 Arnaud Wick MD Jul 27, 2017 09:08
[2017-07-27 12:00] VITALS: BP 101/71
--- NOTE | 2017-07-27 12:59 | Diagnostic Imaging Report ---
APPROVED REPORT CPT Code: 39892 Present Symptoms Shortness of breath BILATERAL: Imaging reveals a patent deep venous system bilaterally. There is no evidence of thrombus within the femoral, popliteal or tibial segments. The greater saphenous veins are also within normal limits. Doppler indicates normal spontaneous flow within these segments.
--- NOTE | 2017-07-27 14:39 | Infectious Diseases Prog Note ---
Assessment/Plan Problems: (1) Altered mental status Assessment & Plan: unclear etiology , rule out ICH VS CVA , will order CT brain stat , continue tele monitor, consult neurology (2) Sepsis Assessment & Plan: with coag negative staphylococcus spp grew out of four bottles , most likely real, source? continue zyvox for now , repeated blood culture to confirm clearance is negative on 07/20 , 2D ECHO didn't show any vegetations to suggest endocarditis . will need two weeks of iv antibiotics for her bacteremia from the clearance date , doesn't meet criteria for endocarditis ( low suspicion), monitor repeated blood culture (3) UTI (urinary tract infection) Assessment & Plan: with klebsiella pneumonia , S/P ceftriaxon treatment . (4) Respiratory distress Assessment & Plan: improved, most likely due to CHF and ASTHMA exacerbation , continue inhalers and diuretics as per renal , close monitor of UOP and renal function (5) Asthma exacerbation Assessment & Plan: continue inhalers, monitor CXR (6) WENDY (acute kidney injury) Assessment & Plan: improving, keep off vancomycin to avoid further nephrotoxicity , hold diuresis if needed, monitor renal function, avoid nephrotoxics (7) Leukocytosis Assessment & Plan: improving, suspect reactive due to recent steroids and volume contraction , repeated blood culture is pending , repeated urine culture is pending , monitor wbc . Subjective ROS Limited/Unobtainable: Yes Allergies: Coded Allergies: No Known Allergies (Unverified , 07/18/17) Subjective she was more altered, unresponsive , comfortable, lying in bed , doesn't respond to verbal commands . no fever or chills, no cough or SOB , no diarrhea. didn't eat today as per health care legal assistant , and had NGT for meds and feeding Objective Vital Signs Last 24 Hour Vital Signs Date Time Temp Pulse Resp B/P (MAP) Pulse Ox O2 Delivery O2 Flow Rate FiO2 07/27/17 12:00 74 07/27/17 12:00 99.3 79 20 101/71 100 Room Air 99.3 07/27/17 08:22 90 121/58 07/27/17 08:02 99.7 90 20 121/58 95 Room Air 99.7 07/27/17 08:00 89 07/27/17 07:59 88 24 Nasal Cannula 2.0 28 07/27/17 07:49 28 07/27/17 07:49 83 23 93 Nasal Cannula 2.0 28 07/27/17 07:43 94 Nasal Cannula 2.0 28 07/27/17 07:43 Nasal Cannula 2.0 28 07/27/17 04:00 90 07/27/17 04:00 98.6 88 15 146/64 99 Room Air 98.6 07/27/17 00:00 98.0 88 17 140/68 100 Room Air 98.0 07/27/17 00:00 94 07/26/17 20:56 81 107/62 07/26/17 20:33 Nasal Cannula 2.0 28 07/26/17 20:33 94 Nasal Cannula 2.0 28 07/26/17 20:00 98.4 81 20 107/62 100 Room Air 98.4 07/26/17 20:00 85 07/26/17 16:00 98.7 64 16 114/59 100 Room Air 98.7 07/26/17 16:00 75 Height (Feet): 5 Weight (Pounds): 150 General Appearance: WD/WN, no acute distress HEENT: normocephalic, atraumatic, anicteric, mucous membranes moist Respiratory/Chest: chest wall non-tender, lungs clear, no respiratory distress , no accessory muscle use, decreased breath sounds, expiratory wheezing Cardiovascular: normal peripheral pulses, normal rate, regular rhythm, no gallop/murmur, no JVD Abdomen: normal bowel sounds, soft, non tender, no organomegaly, non distended , no mass, no scars Extremities: no cyanosis, no clubbing Skin: no rash, no lesions, no ulcers Neurologic/Psychiatric: unresponsiveness Lymphatic: no neck adenopathy, no groin adenopathy Microbiology Date/Time Source Procedure Growth Status 07/25/17 10:20 Blood Blood Culture - Preliminary NO GROWTH AFTER 24 HOURS Resulted 07/25/17 10:10 Blood Blood Culture - Preliminary NO GROWTH AFTER 24 HOURS Resulted 07/26/17 17:25 Indwelling Cath Urine Culture - Preliminary NO GROWTH Resulted Laboratory Tests Test 07/27/17 03:50 White Blood Count 11.6 K/UL (4.8-10.8) H Red Blood Count 3.81 M/UL (4.20-5.40) L Hemoglobin 10.5 G/DL (12.0-16.0) L Hematocrit 32.6 % (37.0-47.0) L Mean Corpuscular Volume 86 FL (80-99) Mean Corpuscular Hemoglobin 27.6 PG (27.0-31.0) Mean Corpuscular Hemoglobin Concent 32.2 G/DL (32.0-36.0) Red Cell Distribution Width 15.4 % (11.6-14.8) H Platelet Count 190 K/UL (150-450) Mean Platelet Volume 6.5 FL (6.5-10.1) Neutrophils (%) (Auto) 77.2 % (45.0-75.0) H Lymphocytes (%) (Auto) 14.7 % (20.0-45.0) L Monocytes (%) (Auto) 7.1 % (1.0-10.0) Eosinophils (%) (Auto) 0.4 % (0.0-3.0) Basophils (%) (Auto) 0.5 % (0.0-2.0) Prothrombin Time 24.9 SEC (9.30-11.50) H Prothromb Time International Ratio 2.4 (0.9-1.1) H Sodium Level 138 MMOL/L (136-145) Potassium Level 3.5 MMOL/L (3.5-5.1) Chloride Level 99 MMOL/L (98-107) Carbon Dioxide Level 32 MMOL/L (21-32) Anion Gap 8 mmol/L (5-15) Blood Urea Nitrogen 20 mg/dL (7-18) H Creatinine 1.7 MG/DL (0.55-1.30) H Estimat Glomerular Filtration Rate mL/min (>60) Glucose Level 167 MG/DL (74-106) H Calcium Level 9.2 MG/DL (8.5-10.1) Magnesium Level 1.8 MG/DL (1.8-2.4) Current Medications Medications (Trade) Dose Ordered Sig/Tam Route PRN Reason Start Time Stop Time Status Last Admin Dose Admin Acetaminophen (Tylenol) 650 mg Q6H PRN ORAL Mild Pain/Temp > 100.5 07/18/17 22:30 08/17/17 22:29 Albuterol Sulfate (Proventil) 2.5 mg Q4H PRN HHN Shortness of Breath 07/26/17 01:00 07/31/17 00:59 07/27/17 07:50 Atorvastatin Calcium (Lipitor) 10 mg QHS ORAL 07/18/17 21:00 08/17/17 20:59 07/26/17 20:56 Dextrose (Dextrose 50%) STAT PRN IV Hypoglycemia 07/18/17 18:30 08/17/17 18:29 Lansoprazole (Prevacid) 30 mg DAILY ORAL 07/27/17 09:00 08/26/17 08:59 07/27/17 08:22 Levothyroxine Sodium (Synthroid) 75 mcg DAILY@0630 ORAL 07/19/17 06:30 08/18/17 06:29 07/27/17 05:32 Linezolid 300 ml @ 300 mls/hr Q12HR IVPB 07/20/17 21:00 08/03/17 23:59 07/27/17 08:22 Metoprolol Tartrate (Lopressor) 12.5 mg Q12HR ORAL 07/25/17 21:00 08/24/17 20:59 07/27/17 08:22 Sitagliptin Phosphate (Januvia) 25 mg ACBREAKFAST ORAL 07/21/17 06:30 08/20/17 06:29 07/25/17 06:48 Warfarin Sodium (Coumadin per pharmacy) 1 ea DAILY PRN MISC Per rx protocol 07/18/17 18:30 08/17/17 18:29 Warfarin Sodium (Coumadin) 2.5 mg COUMADIN ONCE ORAL 07/27/17 17:00 07/27/17 17:01 Juan Foy M.D. Jul 27, 2017 14:39
--- NOTE | 2017-07-27 15:47 | Diagnostic Imaging Report ---
Indications: Altered mental status Technique: Spiral acquisitions obtained through the brain. Angled axial and coronal 5 x 5 mm slices were reconstructed. Total dose length product 1319.78 mGycm. CTDI vol(s) 70.38 mGy. Dose reduction achieved using automated exposure control Comparison: None. Findings: There is age-related enlargement of the ventricles and extra-axial CSF spaces. There is periventricular deep white matter low-attenuation, consistent with ischemic change. No acute intracranial hemorrhage or edema. No mass effect nor midline shift. Intact calvarium. There is bilateral ethmoid sinus mucosal thickening. Visualized orbits are unremarkable Impression: Chronic age-related changes Negative for acute intracranial bleed or mass effect The CT scanner at [facility] is accredited by the [employer] and the scans are performed using protocols designed to limit radiation exposure to as low as reasonably achievable to attain images of sufficient resolution adequate for diagnostic evaluation.
[2017-07-27 16:00] VITALS: BP 103/73
[2017-07-27] MEDS ORDERED: Naloxone 0.4mg/ml Inj IVP ONE (17:00)
[2017-07-27] MEDS ORDERED: Warfarin Sodium 2.5mg ORAL ONE (17:00)
--- NOTE | 2017-07-27 17:29 | General Progress Note ---
Assessment/Plan Assessment/Plan 1) CHF better 2) UTI with sepsis due to Klesiella 3) ? staph bacteremia, ? source, R/O SBE 4) CopD exacerbation 5) WENDY improving with diuresis pointing toward cardio-renal syndrome 6) A. 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 Fib 10 Leukocytosis ? silent aspirations 11) Metabolic and respiratory Alkalosis 12) ? Encephaloapthy Plan: Continue IV ATB's Will probably need pacemaker Replete K+ Narcan 0.4 mg IVPX1 NGT in place, start TF Ammonia level Labs in AM Subjective Allergies: Coded Allergies: No Known Allergies (Unverified , 07/18/17) Subjective She is still very lethargic, ABBG's showed no CO2 retention, Ct of head is negative Objective Last 24 Hour Vital Signs Date Time Temp Pulse Resp B/P (MAP) Pulse Ox O2 Delivery O2 Flow Rate FiO2 07/27/17 12:00 74 07/27/17 12:00 99.3 79 20 101/71 100 Room Air 99.3 07/27/17 08:22 90 121/58 07/27/17 08:02 99.7 90 20 121/58 95 Room Air 99.7 07/27/17 08:00 89 07/27/17 07:59 88 24 Nasal Cannula 2.0 07/27/17 07:49 28 07/27/17 07:49 83 23 93 Nasal Cannula 2.0 28 07/27/17 07:43 94 Nasal Cannula 2.0 28 07/27/17 07:43 Nasal Cannula 2.0 28 07/27/17 04:00 90 07/27/17 04:00 98.6 88 15 146/64 99 Room Air 98.6 07/27/17 00:00 98.0 88 17 140/68 100 Room Air 98.0 07/27/17 00:00 94 07/26/17 20:56 81 107/62 07/26/17 20:33 Nasal Cannula 2.0 28 07/26/17 20:33 94 Nasal Cannula 2.0 28 07/26/17 20:00 98.4 81 20 107/62 100 Room Air 98.4 07/26/17 20:00 85 Intake and Output 07/26/17 07/27/17 19:00 07:00 Intake Total 420 ml 300 ml Output Total 600 ml 200 ml Balance -180 ml 100 ml Intake Oral 120 ml IV Total 300 ml 300 ml Output Urine Total 600 ml 200 ml Laboratory Tests 07/27/17 03:50: White Blood Count 11.6H, Red Blood Count 3.81L, Hemoglobin 10.5L, Hematocrit 32.6L, Mean Corpuscular Volume 86, Mean Corpuscular Hemoglobin 27.6, Mean Corpuscular Hemoglobin Concent 32.2, Red Cell Distribution Width 15.4H, Platelet Count 190, Mean Platelet Volume 6.5, Neutrophils (%) (Auto) 77.2H, Lymphocytes (%) (Auto) 14.7L, Monocytes (%) (Auto) 7.1, Eosinophils (%) (Auto) 0.4, Basophils (%) (Auto) 0.5, Prothrombin Time 24.9H, Prothromb Time International Ratio 2.4H, Sodium Level 138, Potassium Level 3.5, Chloride Level 99, Carbon Dioxide Level 32, Anion Gap 8, Blood Urea Nitrogen 20H, Creatinine 1.7H, Estimat Glomerular Filtration Rate , Glucose Level 167H, Calcium Level 9.2 , Magnesium Level 1.8 Height (Feet): 5 Weight (Pounds): 150 General Appearance: WD/WN, lethargic EENT: PERRL/EOMI Neck: non-tender, normal alignment, supple Cardiovascular: normal rate, regular rhythm Respiratory/Chest: expiratory wheezing Edema: trace edema Neurologic: disoriented, other - AMS BANDAR NAZARIO Jul 27, 2017 17:29
--- NOTE | 2017-07-27 18:33 | Cardiology Progress Note ---
Assessment/Plan Assessment/Plan 1. Acute on chronic diastolic heart failure possibly due to atrial fibrillation with rapid ventricular response, continue low dose beta-blockers till pacemaker is placed. 2. Dyspnea could be multifactorial in combination of chronic obstructive pulmonary disease and congestive heart failure. From the pulmonary standpoint, the patient may benefit from bronchodilators, possibly steroids. Oxygen and pulmonary toilet and inhalers. 3. Probably SSS with tachy-karely episodes, may require pacemaker. 4. Paroxysmal atrial fibrillation, increase metoprolol to 25mg twice daily, keep the INR between 2 and 3. 5. Moderate mitral stenosis due to mitral annular calcification and mitral leaflet calcification. Continue B-blockers. Subjective Subjective Most likely AT/AF with at 105. Objective Last 24 Hour Vital Signs Date Time Temp Pulse Resp B/P (MAP) Pulse Ox O2 Delivery O2 Flow Rate FiO2 07/27/17 16:00 76 07/27/17 16:00 98.2 79 18 103/73 100 Room Air 98.2 07/27/17 12:00 74 07/27/17 12:00 99.3 79 20 101/71 100 Room Air 99.3 07/27/17 08:22 90 121/58 07/27/17 08:02 99.7 90 20 121/58 95 Room Air 99.7 07/27/17 08:00 89 07/27/17 07:59 88 24 Nasal Cannula 2.0 07/27/17 07:49 28 07/27/17 07:49 83 23 93 Nasal Cannula 2.0 28 07/27/17 07:43 94 Nasal Cannula 2.0 28 07/27/17 07:43 Nasal Cannula 2.0 28 07/27/17 04:00 90 07/27/17 04:00 98.6 88 15 146/64 99 Room Air 98.6 07/27/17 00:00 98.0 88 17 140/68 100 Room Air 98.0 07/27/17 00:00 94 07/26/17 20:56 81 107/62 07/26/17 20:33 Nasal Cannula 2.0 28 07/26/17 20:33 94 Nasal Cannula 2.0 28 07/26/17 20:00 98.4 81 20 107/62 100 Room Air 98.4 07/26/17 20:00 85 Intake and Output 07/26/17 07/27/17 19:00 07:00 Intake Total 420 ml 300 ml Output Total 600 ml 200 ml Balance -180 ml 100 ml Intake Oral 120 ml IV Total 300 ml 300 ml Output Urine Total 600 ml 200 ml 2D Echo: EF 65%, Mod MS, Sev LAE, High PCWP, Enlarged RA/RV, small-Medium PE Laboratory Tests Test 07/27/17 03:50 07/27/17 18:00 White Blood Count 11.6 K/UL (4.8-10.8) H Red Blood Count 3.81 M/UL (4.20-5.40) L Hemoglobin 10.5 G/DL (12.0-16.0) L Hematocrit 32.6 % (37.0-47.0) L Mean Corpuscular Volume 86 FL (80-99) Mean Corpuscular Hemoglobin 27.6 PG (27.0-31.0) Mean Corpuscular Hemoglobin Concent 32.2 G/DL (32.0-36.0) Red Cell Distribution Width 15.4 % (11.6-14.8) H Platelet Count 190 K/UL (150-450) Mean Platelet Volume 6.5 FL (6.5-10.1) Neutrophils (%) (Auto) 77.2 % (45.0-75.0) H Lymphocytes (%) (Auto) 14.7 % (20.0-45.0) L Monocytes (%) (Auto) 7.1 % (1.0-10.0) Eosinophils (%) (Auto) 0.4 % (0.0-3.0) Basophils (%) (Auto) 0.5 % (0.0-2.0) Prothrombin Time 24.9 SEC (9.30-11.50) H Prothromb Time International Ratio 2.4 (0.9-1.1) H Sodium Level 138 MMOL/L (136-145) Potassium Level 3.5 MMOL/L (3.5-5.1) Chloride Level 99 MMOL/L (98-107) Carbon Dioxide Level 32 MMOL/L (21-32) Anion Gap 8 mmol/L (5-15) Blood Urea Nitrogen 20 mg/dL (7-18) H Creatinine 1.7 MG/DL (0.55-1.30) H Estimat Glomerular Filtration Rate mL/min (>60) Glucose Level 167 MG/DL (74-106) H Calcium Level 9.2 MG/DL (8.5-10.1) Magnesium Level 1.8 MG/DL (1.8-2.4) Ammonia Pending Microbiology Date/Time Source Procedure Growth Status 07/25/17 10:20 Blood Blood Culture - Preliminary NO GROWTH AFTER 24 HOURS Resulted 07/25/17 10:10 Blood Blood Culture - Preliminary NO GROWTH AFTER 24 HOURS Resulted 07/26/17 17:25 Indwelling Cath Urine Culture - Preliminary NO GROWTH Resulted Objective HEENT: Atraumatic and normocephalic. Anicteric. Pupils are equal, round, and reactive to light and accommodation. Extraocular muscles intact. NECK: JVP cannot be assessed as she is in a sitting position. No carotid bruit. Carotid upstrokes 2+ bilaterally. CARDIOVASCULAR: Normal S1 and S2. Irregularly irregular rhythm. A 2/6 mid systolic murmur at the left sternal border. PMI is at fourth intercostal space in the midclavicular line. LUNGS: Diminished breath sounds in both lungs. Did not appreciate any crackles. ABDOMEN: Obese. No hepatosplenomegaly. Positive bowel sounds. EXTREMITIES: No evidence of edema, clubbing, or cyanosis. DIETER BECKWITH Jul 27, 2017 18:33
[2017-07-27 20:00] VITALS: BP 106/57
[2017-07-28] VITALS (8 sets, daily range): BP systolic 78–143; BP diastolic 45–87
[2017-07-28] MEDS: sitaGLIPtin 25mg tab ORAL SCH (05:31)
[2017-07-28 05:33] LABS: BASOPHILS % (AUTO) 0.5 % (0.0-2.0); EOSINOPHILS % (AUTO) 0.4 % (0.0-3.0); HEMATOCRIT 33.9 % (37.0-47.0); HEMOGLOBIN 10.8 G/DL (12.0-16.0); LYMPHOCYTES % (AUTO) 15.5 % (20.0-45.0); MEAN CORPUSCULAR VOLUME 86 FL (80-99); MONOCYTES % (AUTO) 6.3 % (1.0-10.0); NEUTROPHILS % (AUTO) 77.3 % (45.0-75.0); PLATELET COUNT 171 K/UL (150-450); RED BLOOD COUNT 3.95 M/UL (4.20-5.40); RED CELL DISTRIBUTION WIDTH 15.3 % (11.6-14.8); WHITE BLOOD COUNT 13.1 K/UL (4.8-10.8)
[2017-07-28 05:47] LABS: INR 2.8 (0.9-1.1)
[2017-07-28 05:53] LABS: ALANINE AMINOTRANSFERASE 42 U/L (12-78); ALBUMIN/GLOBULIN RATIO 0.8 (1.0-2.7); ALKALINE PHOSPHATASE 66 U/L (46-116); ANION GAP 8 mmol/L (5-15); ASPARTATE AMINO TRANSFERASE 29 U/L (15-37); BILIRUBIN,TOTAL 0.5 MG/DL (0.2-1.0); BLOOD UREA NITROGEN 26 mg/dL (7-18); CALCIUM 9.1 MG/DL (8.5-10.1); CARBON DIOXIDE 31 MMOL/L (21-32); CHLORIDE 97 MMOL/L (98-107); CREATININE 1.7 MG/DL (0.55-1.30); POTASSIUM 3.6 MMOL/L (3.5-5.1); SODIUM 136 MMOL/L (136-145)
[2017-07-28] MEDS ORDERED: Metoprolol 25mg tab ORAL SCH (09:00)
--- NOTE | 2017-07-28 09:06 | Diagnostic Imaging Report ---
Indication: Cough, dyspnea, on CPAP Technique: One view of the chest Comparison: 07/25/2017 Findings: Interim placement of a nasogastric tube. There is suggestion of trace bilateral pleural effusions, not definitely evident previously. The heart is enlarged. No infiltrates or congestion. The aorta is calcified. Impression: Suspect new finding of trace bilateral pleural effusions. Otherwise little changes since 07/25/2017. No acute pulmonary parenchymal process Stable hepatomegaly Nasogastric tube
[2017-07-28] MEDS: Albuterol ud Inhalation HHN PRN ×4 (09:39→17:42)
--- NOTE | 2017-07-28 09:53 | Pulmonology Progress Note ---
Assessment/Plan Assessment/Plan 1. Acute respiratory failure requiring BiPAP, now improved. 2. Mild congestive heart failure. 3. Chronic asthma with exacerbation, improved 4. Obstructive sleep apnea, CPAP at night 5. Urinary tract infection, Klebsiella 6. Sepsis with AURICULOTHERAPIST in 08/31 BC 7. Diabetes. 8. Hypothyroidism 9. WENDY, 10. Hyponatremia BC neg abx per ID no resp distress, trial off O2 CPAP at night cont HHN disc w RN Has worsening leucocytosis but no change on CXR discussed with cardiology await duplex l lower extremities Subjective Interval Events: No new events; seen in [facility] Constitutional: Reports: no symptoms HEENT: Repors: no symptoms Respiratory: Reports: dry cough, shortness of breath Cardiovascular: Reports: no symptoms Gastrointestinal/Abdominal: Reports: no symptoms Allergies: Coded Allergies: No Known Allergies (Unverified , 07/18/17) Objective Last 24 Hour Vital Signs Date Time Temp Pulse Resp B/P (MAP) Pulse Ox O2 Delivery O2 Flow Rate FiO2 07/28/17 09:40 78 23 94 Bi-pap 40 07/28/17 09:34 78 22 95 Facial 40 07/28/17 08:13 160 142/81 07/28/17 08:00 97.9 161 22 142/81 96 Bi-pap 40 97.9 07/28/17 07:04 152 18 96 Facial 40 07/28/17 07:03 Bi-pap 40 07/28/17 07:02 96 Bi-pap 40 07/28/17 07:01 151 23 Bi-pap 40 07/28/17 04:00 151 07/28/17 04:00 98.4 145 22 143/87 100 Room Air 98.4 07/28/17 00:00 98.1 93 20 100/64 100 Room Air 98.1 07/28/17 00:00 132 07/27/17 21:38 Nasal Cannula 2.0 28 07/27/17 21:38 99 Nasal Cannula 2.0 28 07/27/17 20:12 88 106/57 07/27/17 20:00 94 19 Room Air 2.0 28 07/27/17 20:00 84 07/27/17 20:00 98.2 88 19 106/57 100 Room Air 98.2 07/27/17 16:00 76 07/27/17 16:00 98.2 79 18 103/73 100 Room Air 98.2 2/28/18 12:00 74 07/27/17 12:00 99.3 79 20 101/71 100 Room Air 99.3 Intake and Output 07/27/17 07/28/17 19:00 07:00 Intake Total 390 ml 600 ml Output Total 350 ml 200 ml Balance 40 ml 400 ml Free Water 50 ml 50 ml IV Total 300 ml 300 ml Tube Feeding 40 ml 250 ml Output Urine Total 350 ml 200 ml # Bowel Movements 1 General Appearance: no acute distress HEENT: normocephalic Respiratory/Chest: chest wall non-tender, lungs clear Cardiovascular: normal peripheral pulses, normal rate Abdomen: normal bowel sounds Microbiology Date/Time Source Procedure Growth Status 07/25/17 10:20 Blood Blood Culture - Preliminary NO GROWTH AFTER 48 HOURS Resulted 07/25/17 10:10 Blood Blood Culture - Preliminary NO GROWTH AFTER 48 HOURS Resulted 07/26/17 17:25 Indwelling Cath Urine Culture - Preliminary NO GROWTH Resulted Laboratory Tests 07/27/17 18:00: Ammonia 6L 07/28/17 04:00: White Blood Count 13.1H, Red Blood Count 3.95L, Hemoglobin 10.8L, Hematocrit 33.9L, Mean Corpuscular Volume 86, Mean Corpuscular Hemoglobin 27.4, Mean Corpuscular Hemoglobin Concent 31.9L, Red Cell Distribution Width 15.3H, Platelet Count 171, Mean Platelet Volume 6.5, Neutrophils (%) (Auto) 77.3H, Lymphocytes (%) (Auto) 15.5L, Monocytes (%) (Auto) 6.3, Eosinophils (%) (Auto) 0.4, Basophils (%) (Auto) 0.5, Prothrombin Time 29.6H, Prothromb Time International Ratio 2.8H, Sodium Level 136, Potassium Level 3.6, Chloride Level 97L, Carbon Dioxide Level 31, Anion Gap 8, Blood Urea Nitrogen 26H, Creatinine 1.7H, Estimat Glomerular Filtration Rate , Glucose Level 171H, Calcium Level 9.1 , Total Bilirubin 0.5, Aspartate Amino Transf (AST/SGOT) 29, Alanine Aminotransferase (ALT/SGPT) 42, Alkaline Phosphatase 66, Pro-B-Type Natriuretic Peptide 4427H, Total Protein 6.9, Albumin 3.0L, Globulin 3.9, Albumin/Globulin Ratio 0.8L, Cortisol AM Sample [Pending] 07/28/17 09:00: Arterial Blood pH 7.310L, Arterial Blood Partial Pressure CO2 47.5H, Arterial Blood Partial Pressure O2 100.5H, Arterial Blood HCO3 23.8, Arterial Blood Oxygen Saturation 96.7, Arterial Blood Base Excess -2.5, Tom Test Positive Current Medications Medications (Trade) Dose Ordered Sig/Tam Route PRN Reason Start Time Stop Time Status Last Admin Dose Admin Acetaminophen (Tylenol) 650 mg Q6H PRN ORAL Mild Pain/Temp > 100.5 07/18/17 22:30 08/17/17 22:29 Albuterol Sulfate (Proventil) 2.5 mg Q4H PRN HHN Shortness of Breath 07/26/17 01:00 07/31/17 00:59 07/28/17 09:39 Atorvastatin Calcium (Lipitor) 10 mg QHS ORAL 07/18/17 21:00 08/17/17 20:59 07/27/17 20:53 Dextrose (Dextrose 50%) STAT PRN IV Hypoglycemia 07/18/17 18:30 08/17/17 18:29 Lansoprazole (Prevacid) 30 mg DAILY ORAL 07/27/17 09:00 08/26/17 08:59 07/28/17 08:13 Levothyroxine Sodium (Synthroid) 75 mcg DAILY@0630 ORAL 07/19/17 06:30 08/18/17 06:29 07/28/17 05:31 Linezolid 300 ml @ 300 mls/hr Q12HR IVPB 07/20/17 21:00 08/03/17 23:59 07/28/17 08:13 Metoprolol Tartrate (Lopressor) 25 mg Q12HR ORAL 07/28/17 09:00 08/27/17 08:59 07/28/17 08:13 Sitagliptin Phosphate (Januvia) 25 mg ACBREAKFAST ORAL 07/21/17 06:30 08/20/17 06:29 07/28/17 05:31 Warfarin Sodium (Coumadin per pharmacy) 1 ea DAILY PRN MISC Per rx protocol 07/18/17 18:30 08/17/17 18:29 Warfarin Sodium (Coumadin) 1 mg COUMADIN ONCE ORAL 07/28/17 17:00 07/28/17 17:01 Arnaud Wick MD Jul 28, 2017 09:53
--- NOTE | 2017-07-28 12:24 | Wound Care Consultation ---
Wound Assessment Wound Assessment : Wound Number: 1 Wound Present on Admission: No New Wound: Yes Status Change of Wound: No Wound Location Body Site Modif: mid Wound Location Body Site: other - Sacrococcygeal extending to left and right buttock Wound Type: pressure ulcer Sophie Test: Does not Sophie Pressure Ulcer Stage: I Wound Length: 11.5 Wound Width: 6.5 Percent of Wound [place]/Red: 100 Wound Drainage Amount: None Wound Drainage Odor: None/Absent Tissue Surrounding Wound: Erythemic Wound General Appearance: Reddened Wound Comment #1 Sacrococcygeal stage I pressure ulcer extending to left and right buttocks Recommendation -Local wound care per protocol -Keep clean and dry -Turn and reposition -Offload both heels -Heel protector on both heels -Optimize nutrition -Low air loss mattress -Assess and f/u accordingly for any changes RALPH GEE RN Jul 28, 2017 12:23
--- NOTE | 2017-07-28 14:58 | Infectious Diseases Prog Note ---
Assessment/Plan Problems: (1) Altered mental status Assessment & Plan: unclear etiology , with negative head CT for ICH or CVA , retaining CO2 on blood gasses , which could be a factor , continue tele monitor, consult neurology (2) Sepsis Assessment & Plan: resolved , due to coag negative staphylococcus spp grew out of four bottles , most likely real, source? continue zyvox for now , repeated blood culture to confirm clearance is negative on 07/20 , 2D ECHO didn 't show any vegetations to suggest endocarditis . will need two weeks of iv antibiotics for her bacteremia from the clearance date , doesn't meet criteria for endocarditis( low suspicion), monitor repeated blood culture (3) UTI (urinary tract infection) Assessment & Plan: with klebsiella pneumonia , S/P ceftriaxon treatment .repeated UA showed negative results for infection (4) Respiratory distress Assessment & Plan: with B/L wheezing , CHF VS ASTHMA exacerbation , continue inhalers and diuretics as per renal , close monitor of UOP and renal function, fully therapeutic (5) Asthma exacerbation Assessment & Plan: continue inhalers, monitor CXR (6) WENDY (acute kidney injury) Assessment & Plan: improving, keep off vancomycin to avoid further nephrotoxicity , hold diuresis if needed, monitor renal function, avoid nephrotoxics (7) Leukocytosis Assessment & Plan: suspect reactive due to volume contraction , repeated blood culture is negative , repeated urine culture is negative so far , will order C diff toxin , monitor wbc . Subjective ROS Limited/Unobtainable: Yes Allergies: Coded Allergies: No Known Allergies (Unverified , 07/18/17) Subjective she was altered and on BIPAP machine, unresponsive , lying in bed , doesn't respond to verbal commands . no fever or chills, no cough or SOB , no diarrhea. didn't eat today as per patient care director , and had NGT for meds and feeding Objective Vital Signs Last 24 Hour Vital Signs Date Time Temp Pulse Resp B/P (MAP) Pulse Ox O2 Delivery O2 Flow Rate FiO2 07/28/17 13:20 84 19 98 Facial 40 07/28/17 12:00 98.1 83 20 101/52 98 Bi-pap 40 98.1 07/28/17 12:00 76 07/28/17 10:30 78 20 98 Facial 40 07/28/17 09:40 78 23 94 Bi-pap 40 07/28/17 09:34 78 22 95 Facial 40 07/28/17 08:13 160 142/81 07/28/17 08:00 159 07/28/17 08:00 97.9 161 22 142/81 96 Bi-pap 40 97.9 07/28/17 07:04 152 18 96 Facial 40 07/28/17 07:03 Bi-pap 40 07/28/17 07:02 96 Bi-pap 40 07/28/17 07:01 151 23 Bi-pap 40 07/28/17 04:00 151 07/28/17 04:00 98.4 145 22 143/87 100 Room Air 98.4 07/28/17 00:00 98.1 93 20 100/64 100 Room Air 98.1 07/28/17 00:00 132 07/27/17 21:38 Nasal Cannula 2.0 28 07/27/17 21:38 99 Nasal Cannula 2.0 28 07/27/17 20:12 88 106/57 07/27/17 20:00 94 19 Room Air 2.0 28 07/27/17 20:00 84 07/27/17 20:00 98.2 88 19 106/57 100 Room Air 98.2 07/27/17 16:00 76 07/27/17 16:00 98.2 79 18 103/73 100 Room Air 98.2 Height (Feet): 5 Weight (Pounds): 151 General Appearance: WD/WN, no acute distress HEENT: normocephalic, atraumatic, anicteric, mucous membranes moist, no JVD Respiratory/Chest: chest wall non-tender, no respiratory distress, no accessory muscle use, decreased breath sounds, expiratory wheezing, inspiratory wheezing Cardiovascular: normal peripheral pulses, normal rate, regular rhythm, no gallop/murmur, no JVD Abdomen: normal bowel sounds, soft, non tender, no organomegaly, non distended , no mass, no scars Extremities: no cyanosis, no clubbing Skin: no rash, no lesions, no ulcers Neurologic/Psychiatric: unresponsiveness Microbiology Date/Time Source Procedure Growth Status 07/26/17 17:25 Indwelling Cath Urine Culture - Preliminary NO GROWTH AFTER 24 HOURS Resulted Laboratory Tests Test 07/27/17 18:00 07/28/17 04:00 07/28/17 09:00 07/28/17 14:26 Ammonia 6 umol/L (11-32) L White Blood Count 13.1 K/UL (4.8-10.8) H Red Blood Count 3.95 M/UL (4.20-5.40) L Hemoglobin 10.8 G/DL (12.0-16.0) L Hematocrit 33.9 % (37.0-47.0) L Mean Corpuscular Volume 86 FL (80-99) Mean Corpuscular Hemoglobin 27.4 PG (27.0-31.0) Mean Corpuscular Hemoglobin Concent 31.9 G/DL (32.0-36.0) L Red Cell Distribution Width 15.3 % (11.6-14.8) H Platelet Count 171 K/UL (150-450) Mean Platelet Volume 6.5 FL (6.5-10.1) Neutrophils (%) (Auto) 77.3 % (45.0-75.0) H Lymphocytes (%) (Auto) 15.5 % (20.0-45.0) L Monocytes (%) (Auto) 6.3 % (1.0-10.0) Eosinophils (%) (Auto) 0.4 % (0.0-3.0) Basophils (%) (Auto) 0.5 % (0.0-2.0) Prothrombin Time 29.6 SEC (9.30-11.50) H Prothromb Time International Ratio 2.8 (0.9-1.1) H Sodium Level 136 MMOL/L (136-145) Potassium Level 3.6 MMOL/L (3.5-5.1) Chloride Level 97 MMOL/L (98-107) L Carbon Dioxide Level 31 MMOL/L (21-32) Anion Gap 8 mmol/L (5-15) Blood Urea Nitrogen 26 mg/dL (7-18) H Creatinine 1.7 MG/DL (0.55-1.30) H Estimat Glomerular Filtration Rate mL/min (>60) Glucose Level 171 MG/DL (74-106) H Calcium Level 9.1 MG/DL (8.5-10.1) Total Bilirubin 0.5 MG/DL (0.2-1.0) Aspartate Amino Transf (AST/SGOT) 29 U/L (15-37) Alanine Aminotransferase (ALT/SGPT) 42 U/L (12-78) Alkaline Phosphatase 66 U/L (46-116) Pro-B-Type Natriuretic Peptide 4427 pg/mL (0-125) H Total Protein 6.9 G/DL (6.4-8.2) Albumin 3.0 G/DL (3.4-5.0) L Globulin 3.9 g/dL Albumin/Globulin Ratio 0.8 (1.0-2.7) L Cortisol AM Sample Pending Arterial Blood pH 7.310 (7.350-7.450) 7.290 (7.350-7.450) Arterial Blood Partial Pressure CO2 47.5 mmHg (35.0-45.0) H 57.6 mmHg (35.0-45.0) *H Arterial Blood Partial Pressure O2 100.5 mmHg (75.0-100.0) H 111.4 mmHg (75.0-100.0) H Arterial Blood HCO3 23.8 mmol/L (22.0-26.0) 27.5 mmol/L (22.0-26.0) H Arterial Blood Oxygen Saturation 96.7 % (92.0-98.0) 97.5 % (92.0-98.0) Arterial Blood Base Excess -2.5 0.3 Tom Test Positive Positive Current Medications Medications (Trade) Dose Ordered Sig/Tam Route PRN Reason Start Time Stop Time Status Last Admin Dose Admin Acetaminophen (Tylenol) 650 mg Q6H PRN ORAL Mild Pain/Temp > 100.5 07/18/17 22:30 08/17/17 22:29 Albuterol Sulfate (Proventil) 2.5 mg Q4H PRN HHN Shortness of Breath 07/26/17 01:00 07/31/17 00:59 07/28/17 13:19 Atorvastatin Calcium (Lipitor) 10 mg QHS ORAL 07/18/17 21:00 08/17/17 20:59 07/27/17 20:53 Dextrose (Dextrose 50%) STAT PRN IV Hypoglycemia 07/18/17 18:30 08/17/17 18:29 Lansoprazole (Prevacid) 30 mg DAILY ORAL 07/27/17 09:00 08/26/17 08:59 07/28/17 08:13 Levothyroxine Sodium (Synthroid) 75 mcg DAILY@0630 ORAL 07/19/17 06:30 08/18/17 06:29 07/28/17 05:31 Linezolid 300 ml @ 300 mls/hr Q12HR IVPB 07/20/17 21:00 08/03/17 23:59 07/28/17 08:13 Metoprolol Tartrate (Lopressor) 25 mg Q12HR ORAL 07/28/17 09:00 08/27/17 08:59 07/28/17 08:13 Sitagliptin Phosphate (Januvia) 25 mg ACBREAKFAST ORAL 07/21/17 06:30 08/20/17 06:29 07/28/17 05:31 Warfarin Sodium (Coumadin per pharmacy) 1 ea DAILY PRN MISC Per rx protocol 07/18/17 18:30 08/17/17 18:29 Warfarin Sodium (Coumadin) 1 mg COUMADIN ONCE ORAL 07/28/17 17:00 07/28/17 17:01 Juan Foy M.D. Jul 28, 2017 14:58
--- NOTE | 2017-07-28 15:41 | General Progress Note ---
Assessment/Plan Assessment/Plan 1) CHF again with acute exacerbation of chronic diastolic CHF 2) UTI with sepsis due to Klesiella 3) ? staph bacteremia, ? source, R/O SBE 4) CopD exacerbation 5) WENDY improving with diuresis pointing toward cardio-renal syndrome 6) A. 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 Fib 10 Leukocytosis ? silent aspirations 11) Metabolic and respiratory Alkalosis 12) Hypoventilation with respiratory failure Plan: Continue IV ATB's will need to be intubated NGT in place, start TF WEill start her on Lasix drip Replete K+ Might need to have cardiac ischemia work up Put order for bibiana to [facility] EKG Troponin Subjective Allergies: Coded Allergies: No Known Allergies (Unverified , 07/18/17) Subjective She is now on bipap, PCo2 is 57, PH is 7.29, creat is 1.7, she is still going in to A. Fib with RVR intermittently Objective Last 24 Hour Vital Signs Date Time Temp Pulse Resp B/P (MAP) Pulse Ox O2 Delivery O2 Flow Rate FiO2 07/28/17 15:05 81 19 96 Facial 40 07/28/17 13:20 84 19 98 Facial 40 07/28/17 12:00 98.1 83 20 101/52 98 Bi-pap 40 98.1 07/28/17 12:00 76 07/28/17 10:30 78 20 98 Facial 40 07/28/17 09:40 78 23 94 Bi-pap 40 07/28/17 09:34 78 22 95 Facial 40 07/28/17 08:13 160 142/81 07/28/17 08:00 159 07/28/17 08:00 97.9 161 22 142/81 96 Bi-pap 40 97.9 07/28/17 07:04 152 18 96 Facial 40 07/28/17 07:03 Bi-pap 40 07/28/17 07:02 96 Bi-pap 40 07/28/17 07:01 151 23 Bi-pap 40 07/28/17 04:00 151 07/28/17 04:00 98.4 145 22 143/87 100 Room Air 98.4 07/28/17 00:00 98.1 93 20 100/64 100 Room Air 98.1 07/28/17 00:00 132 07/27/17 21:38 Nasal Cannula 2.0 28 07/27/17 21:38 99 Nasal Cannula 2.0 28 07/27/17 20:12 88 106/57 07/27/17 20:00 94 19 Room Air 2.0 28 07/27/17 20:00 84 07/27/17 20:00 98.2 88 19 106/57 100 Room Air 98.2 07/27/17 16:00 76 07/27/17 16:00 98.2 79 18 103/73 100 Room Air 98.2 Intake and Output 07/27/17 07/28/17 19:00 07:00 Intake Total 390 ml 600 ml Output Total 350 ml 200 ml Balance 40 ml 400 ml Free Water 50 ml 50 ml IV Total 300 ml 300 ml Tube Feeding 40 ml 250 ml Output Urine Total 350 ml 200 ml # Bowel Movements 1 Laboratory Tests 07/27/17 18:00: Ammonia 6L 07/28/17 04:00: White Blood Count 13.1H, Red Blood Count 3.95L, Hemoglobin 10.8L, Hematocrit 33.9L, Mean Corpuscular Volume 86, Mean Corpuscular Hemoglobin 27.4, Mean Corpuscular Hemoglobin Concent 31.9L, Red Cell Distribution Width 15.3H, Platelet Count 171, Mean Platelet Volume 6.5, Neutrophils (%) (Auto) 77.3H, Lymphocytes (%) (Auto) 15.5L, Monocytes (%) (Auto) 6.3, Eosinophils (%) (Auto) 0.4, Basophils (%) (Auto) 0.5, Prothrombin Time 29.6H, Prothromb Time International Ratio 2.8H, Sodium Level 136, Potassium Level 3.6, Chloride Level 97L, Carbon Dioxide Level 31, Anion Gap 8, Blood Urea Nitrogen 26H, Creatinine 1.7H, Estimat Glomerular Filtration Rate , Glucose Level 171H, Calcium Level 9.1 , Total Bilirubin 0.5, Aspartate Amino Transf (AST/SGOT) 29, Alanine Aminotransferase (ALT/SGPT) 42, Alkaline Phosphatase 66, Pro-B-Type Natriuretic Peptide 4427H, Total Protein 6.9, Albumin 3.0L, Globulin 3.9, Albumin/Globulin Ratio 0.8L, Cortisol AM Sample [Pending] 07/28/17 09:00: Arterial Blood pH 7.310L, Arterial Blood Partial Pressure CO2 47.5H, Arterial Blood Partial Pressure O2 100.5H, Arterial Blood HCO3 23.8, Arterial Blood Oxygen Saturation 96.7, Arterial Blood Base Excess -2.5, Tom Test Positive 07/28/17 14:26: Arterial Blood pH 7.290L, Arterial Blood Partial Pressure CO2 57.6*H, Arterial Blood Partial Pressure O2 111.4H, Arterial Blood HCO3 27.5H, Arterial Blood Oxygen Saturation 97.5, Arterial Blood Base Excess 0.3, Tom Test Positive Height (Feet): 5 Weight (Pounds): 151 General Appearance: moderate distress EENT: PERRL/EOMI Neck: normal alignment, supple Cardiovascular: JVD - high, irregularly irregular Respiratory/Chest: expiratory wheezing Abdomen: non tender, soft Edema: moderate edema Neurologic: unresponsive BANDAR NAZARIO Jul 28, 2017 15:41
[2017-07-28] MEDS ORDERED: NS 500ML ONE (16:16)
[2017-07-28] MEDS ORDERED: NS 275ml ONE (16:16)
--- NOTE | 2017-07-28 16:40 | Emergency Room Report ---
History of Present Illness General Chief Complaint: Dyspnea/Respdistress Source: Family Member Present Illness Allergies: Coded Allergies: No Known Allergies (Unverified , 07/18/17) Patient History Now: No Nursing Documentation-PMH Hx Hypertension: Yes Hx Asthma: Yes Hx COPD: Yes Hx Dementia: Yes Physical Exam Vital Signs Date Time Temp Pulse Resp B/P (MAP) Pulse Ox O2 Delivery O2 Flow Rate FiO2 07/18/17 13:21 98.0 130 20 140/80 98 Non-Rebreather 98.1 07/18/17 13:35 21 07/18/17 13:47 7.0 Procedures Intubation Intubation : Consent: Emergent Intubation Method: orotracheal Tube Size (cm): 7.5 Medications: Etomidate, Succinylcholine Breath Sounds after Intubation: equal Intubation Complications: no complications Post Intubation Xray: Yes Progress/Xray Impression: Appropriate tube placement Attempts: One Patient Tolerated: Well Complications: None Medical Decision Making Diagnostic Impression: Primary Impression: Respiratory failure ER Course I was called to the ICU from the emergency department at the request of the primary care physician to intubate this patient. Apparently this patient was admitted to the [facility] for asthma exacerbation and CHF exacerbation. She has been doing poorly. Per report she is retaining CO2 and needs a definitive airway. On my arrival, the patient was on BiPAP in the week. The patient underwent rapid sequence intubation without complication or incident. Tube placement was confirmed with end-tidal CO2 color change, chest x-ray and auscultation. Further care is deferred to the primary care physician caring for her in the ICU. Laboratory Tests Test 07/27/17 03:50 07/27/17 18:00 07/28/17 04:00 07/28/17 09:00 White Blood Count 11.6 K/UL (4.8-10.8) H 13.1 K/UL (4.8-10.8) H Red Blood Count 3.81 M/UL (4.20-5.40) L 3.95 M/UL (4.20-5.40) L Hemoglobin 10.5 G/DL (12.0-16.0) L 10.8 G/DL (12.0-16.0) L Hematocrit 32.6 % (37.0-47.0) L 33.9 % (37.0-47.0) L Mean Corpuscular Volume 86 FL (80-99) 86 FL (80-99) Mean Corpuscular Hemoglobin 27.6 PG (27.0-31.0) 27.4 PG (27.0-31.0) Mean Corpuscular Hemoglobin Concent 32.2 G/DL (32.0-36.0) 31.9 G/DL (32.0-36.0) L Red Cell Distribution Width 15.4 % (11.6-14.8) H 15.3 % (11.6-14.8) H Platelet Count 190 K/UL (150-450) 171 K/UL (150-450) Mean Platelet Volume 6.5 FL (6.5-10.1) 6.5 FL (6.5-10.1) Neutrophils (%) (Auto) 77.2 % (45.0-75.0) H 77.3 % (45.0-75.0) H Lymphocytes (%) (Auto) 14.7 % (20.0-45.0) L 15.5 % (20.0-45.0) L Monocytes (%) (Auto) 7.1 % (1.0-10.0) 6.3 % (1.0-10.0) Eosinophils (%) (Auto) 0.4 % (0.0-3.0) 0.4 % (0.0-3.0) Basophils (%) (Auto) 0.5 % (0.0-2.0) 0.5 % (0.0-2.0) Prothrombin Time 24.9 SEC (9.30-11.50) H 29.6 SEC (9.30-11.50) H Prothrombin Time INR 2.4 (0.9-1.1) H 2.8 (0.9-1.1) H Sodium Level 138 MMOL/L (136-145) 136 MMOL/L (136-145) Potassium Level 3.5 MMOL/L (3.5-5.1) 3.6 MMOL/L (3.5-5.1) Chloride Level 99 MMOL/L (98-107) 97 MMOL/L (98-107) L Carbon Dioxide Level 32 MMOL/L (21-32) 31 MMOL/L (21-32) Anion Gap 8 mmol/L (5-15) 8 mmol/L (5-15) Blood Urea Nitrogen 20 mg/dL (7-18) H 26 mg/dL (7-18) H Creatinine 1.7 MG/DL (0.55-1.30) H 1.7 MG/DL (0.55-1.30) H Estimate Glomerular Filtration Rate mL/min (>60) mL/min (>60) Glucose Level 167 MG/DL (74-106) H 171 MG/DL (74-106) H Calcium Level 9.2 MG/DL (8.5-10.1) 9.1 MG/DL (8.5-10.1) Magnesium Level 1.8 MG/DL (1.8-2.4) Ammonia 6 umol/L (11-32) L Total Bilirubin 0.5 MG/DL (0.2-1.0) Aspartate Amino Transferase (AST) 29 U/L (15-37) Alanine Aminotransferase (ALT) 42 U/L (12-78) Alkaline Phosphatase 66 U/L (46-116) Pro-B-Type Natriuretic Peptide 4427 pg/mL (0-125) H Total Protein 6.9 G/DL (6.4-8.2) Albumin 3.0 G/DL (3.4-5.0) L Globulin 3.9 g/dL Albumin/Globulin Ratio 0.8 (1.0-2.7) L Cortisol AM Sample Pending Arterial Blood pH 7.310 (7.350-7.450) Arterial Blood Partial Pressure CO2 47.5 mmHg (35.0-45.0) H Arterial Blood Partial Pressure O2 100.5 mmHg (75.0-100.0) H Arterial Blood HCO3 23.8 mmol/L (22.0-26.0) Arterial Blood Oxygen Saturation 96.7 % (92.0-98.0) Arterial Blood Base Excess -2.5 Tom Test Positive Test 07/28/17 14:26 Arterial Blood pH 7.290 (7.350-7.450) Arterial Blood Partial Pressure CO2 57.6 mmHg (35.0-45.0) *H Arterial Blood Partial Pressure O2 111.4 mmHg (75.0-100.0) H Arterial Blood HCO3 27.5 mmol/L (22.0-26.0) H Arterial Blood Oxygen Saturation 97.5 % (92.0-98.0) Arterial Blood Base Excess 0.3 Tom Test Positive Chest X-Ray Diagnostic Results Chest X-Ray Diagnostic Results : Chest X-Ray Ordered: Yes # of Views/Limited/Complete: 1 View Indication: Other EP Interpretation: Yes Interpretation: other - Appropriate tube placement Electronically Signed by: Brianna Last Vital Signs Date Time Temp Pulse Resp B/P (MAP) Pulse Ox O2 Delivery O2 Flow Rate FiO2 07/28/17 15:05 81 19 96 Facial 40 07/28/17 12:00 98.1 101/52 98.1 07/27/17 21:38 2.0 Disposition: ADMITTED INPATIENT Condition: Critical Referrals: Marcello Barrios MD (PCP) BARBARA FITZPATRICK D.O. Jul 28, 2017 16:40
--- NOTE | 2017-07-28 16:47 | Diagnostic Imaging Report ---
Indication: Post endotracheal intubation Technique: One view of the chest Comparison: 8 hours earlier Findings: Interim endotracheal intubation, endotracheal tube tip projecting approximately 4 cm above the vivek. Stable satisfactory position of nasogastric tube. The lungs are clear. The right pleural spaces clear. There is minimal blunting of the left costophrenic sulcus. The heart remains borderline enlarged Impression: Satisfactory endotracheal intubation Other stable findings as described
[2017-07-28] MEDS ORDERED: Warfarin Sodium 1mg ORAL ONE ×2 (17:00)
[2017-07-28] MEDS ORDERED: Succinylcholine 20mg/ml 10ml vial ONE (17:42)
[2017-07-28] MEDS ORDERED: Etomidate 40mg/20ml Inj IV ONE (17:42)
[2017-07-28 17:54] LABS: ANION GAP 11 mmol/L (5-15); BLOOD UREA NITROGEN 32 mg/dL (7-18); CALCIUM 8.3 MG/DL (8.5-10.1); CARBON DIOXIDE 26 MMOL/L (21-32); CHLORIDE 98 MMOL/L (98-107); CREATININE 1.9 MG/DL (0.55-1.30); POTASSIUM 3.4 MMOL/L (3.5-5.1); SODIUM 135 MMOL/L (136-145)
[2017-07-28 20:14] LABS: BASOPHILS % (AUTO) 0.2 % (0.0-2.0); EOSINOPHILS % (AUTO) 0.1 % (0.0-3.0); HEMOGLOBIN 9.4 G/DL (12.0-16.0); LYMPHOCYTES % (AUTO) 12.6 % (20.0-45.0); MEAN CORPUSCULAR VOLUME 85 FL (80-99); MONOCYTES % (AUTO) 4.9 % (1.0-10.0); NEUTROPHILS % (AUTO) 82.3 % (45.0-75.0); PLATELET COUNT 122 K/UL (150-450); RED BLOOD COUNT 3.51 M/UL (4.20-5.40); RED CELL DISTRIBUTION WIDTH 15.4 % (11.6-14.8); WHITE BLOOD COUNT 8.2 K/UL (4.8-10.8)
[2017-07-28] MEDS: Metoprolol 5mg/5ml Inj IVP SCH ×4 (20:25→20:48)
[2017-07-28] MEDS ORDERED: Morphine Sulfate 2mg/ml Inj IVP PRN (20:30)
[2017-07-28] MEDS: Metoprolol 25mg tab GT SCH (21:00)
--- NOTE | 2017-07-28 21:20 | Cardiac Electrophysiology PN ---
Assessment/Plan Problem List: (1) CHF exacerbation (2) Asthma exacerbation (3) Atrial fibrillation with rapid ventricular response (4) WENDY (acute kidney injury) Status: not improved, deteriorating Status Narrative Respiratory failure - ? due to diastolic CHF, rt ht failure ? ischemia AF -w/ brief SR. Severely enlarged lt atrium - unlikely to maintain SR. Mitral stenosis - ? moderate v severe. Valve appears heavily calcified, ? rheumatic Aortic valve calcification. COPD Dementia Assessment/Plan Continue vent support. check serial troponins, EKGs Would change warfarin to iv heparin for now (for possible invasive procedures) Metoprolol for rate control in AF. IV diuretics, K supplementation d/w Dr. Lindsay Agree w/ transfer to [facility] for further evaluation of MV disease. Subjective ROS Limited/Unobtainable: Yes Subjective Cardiac EP Pt transferred to ICU w/ respiratory failure, AF. Currently intubated/sedated Objective Last 24 Hour Vital Signs Date Time Temp Pulse Resp B/P (MAP) Pulse Ox O2 Delivery O2 Flow Rate FiO2 07/28/17 20:48 82 97/49 07/28/17 20:42 87 102/47 07/28/17 19:28 86 14 40 07/28/17 17:42 76 14 100 Mechanical Ventilator 40 07/28/17 16:40 86 14 40 07/28/17 15:05 81 19 96 Facial 40 07/28/17 13:20 84 19 98 Facial 40 07/28/17 12:00 98.1 83 20 101/52 98 Bi-pap 40 98.1 07/28/17 12:00 76 07/28/17 10:30 78 20 98 Facial 40 07/28/17 09:50 40 07/28/17 09:50 79 24 Bi-pap 40 07/28/17 09:40 78 23 94 Bi-pap 40 07/28/17 09:34 78 22 95 Facial 40 07/28/17 08:13 160 142/81 07/28/17 08:00 159 07/28/17 08:00 97.9 161 22 142/81 96 Bi-pap 40 97.9 07/28/17 07:04 152 18 96 Facial 40 07/28/17 07:03 Bi-pap 40 07/28/17 07:02 96 Bi-pap 40 07/28/17 07:01 151 23 Bi-pap 40 07/28/17 04:00 151 07/28/17 04:00 98.4 145 22 143/87 100 Room Air 98.4 07/28/17 00:00 98.1 93 20 100/64 100 Room Air 98.1 07/28/17 00:00 132 07/27/17 21:38 Nasal Cannula 2.0 28 07/27/17 21:38 99 Nasal Cannula 2.0 28 General Appearance: WD/WN, on vent EENT: PERRL/EOMI Neck: supple Rhythm: Afib Cardiovascular: normal rate, irregularly irregular Respiratory/Chest: rhonchi - bilaterally Abdomen: normal bowel sounds, non tender, soft Extremities: no swelling Intake and Output 07/27/17 07/28/17 19:00 07:00 Intake Total 390 ml 600 ml Output Total 350 ml 200 ml Balance 40 ml 400 ml Free Water 50 ml 50 ml IV Total 300 ml 300 ml Tube Feeding 40 ml 250 ml Output Urine Total 350 ml 200 ml # Bowel Movements 1 Laboratory Tests Test 07/28/17 04:00 07/28/17 09:00 07/28/17 14:26 07/28/17 16:55 White Blood Count 13.1 K/UL (4.8-10.8) H Red Blood Count 3.95 M/UL (4.20-5.40) L Hemoglobin 10.8 G/DL (12.0-16.0) L Hematocrit 33.9 % (37.0-47.0) L Mean Corpuscular Volume 86 FL (80-99) Mean Corpuscular Hemoglobin 27.4 PG (27.0-31.0) Mean Corpuscular Hemoglobin Concent 31.9 G/DL (32.0-36.0) L Red Cell Distribution Width 15.3 % (11.6-14.8) H Platelet Count 171 K/UL (150-450) Mean Platelet Volume 6.5 FL (6.5-10.1) Neutrophils (%) (Auto) 77.3 % (45.0-75.0) H Lymphocytes (%) (Auto) 15.5 % (20.0-45.0) L Monocytes (%) (Auto) 6.3 % (1.0-10.0) Eosinophils (%) (Auto) 0.4 % (0.0-3.0) Basophils (%) (Auto) 0.5 % (0.0-2.0) Prothrombin Time 29.6 SEC (9.30-11.50) H Prothromb Time International Ratio 2.8 (0.9-1.1) H Sodium Level 136 MMOL/L (136-145) Potassium Level 3.6 MMOL/L (3.5-5.1) Chloride Level 97 MMOL/L (98-107) L Carbon Dioxide Level 31 MMOL/L (21-32) Anion Gap 8 mmol/L (5-15) Blood Urea Nitrogen 26 mg/dL (7-18) H Creatinine 1.7 MG/DL (0.55-1.30) H Estimat Glomerular Filtration Rate mL/min (>60) Glucose Level 171 MG/DL (74-106) H Calcium Level 9.1 MG/DL (8.5-10.1) Total Bilirubin 0.5 MG/DL (0.2-1.0) Aspartate Amino Transf (AST/SGOT) 29 U/L (15-37) Alanine Aminotransferase (ALT/SGPT) 42 U/L (12-78) Alkaline Phosphatase 66 U/L (46-116) Pro-B-Type Natriuretic Peptide 4427 pg/mL (0-125) H Total Protein 6.9 G/DL (6.4-8.2) Albumin 3.0 G/DL (3.4-5.0) L Globulin 3.9 g/dL Albumin/Globulin Ratio 0.8 (1.0-2.7) L Cortisol AM Sample Pending Arterial Blood pH 7.310 (7.350-7.450) 7.290 (7.350-7.450) 7.450 (7.350-7.450) Arterial Blood Partial Pressure CO2 47.5 mmHg (35.0-45.0) H 57.6 mmHg (35.0-45.0) *H 35.5 mmHg (35.0-45.0) Arterial Blood Partial Pressure O2 100.5 mmHg (75.0-100.0) H 111.4 mmHg (75.0-100.0) H 191.6 mmHg (75.0-100.0) H Arterial Blood HCO3 23.8 mmol/L (22.0-26.0) 27.5 mmol/L (22.0-26.0) H 24.2 mmol/L (22.0-26.0) Arterial Blood Oxygen Saturation 96.7 % (92.0-98.0) 97.5 % (92.0-98.0) 98.9 % (92.0-98.0) H Arterial Blood Base Excess -2.5 0.3 0.5 Tom Test Positive Positive Positive Test 07/28/17 17:30 07/28/17 19:50 Sodium Level 135 MMOL/L (136-145) L Potassium Level 3.4 MMOL/L (3.5-5.1) L Chloride Level 98 MMOL/L (98-107) Carbon Dioxide Level 26 MMOL/L (21-32) Anion Gap 11 mmol/L (5-15) Blood Urea Nitrogen 32 mg/dL (7-18) H Creatinine 1.9 MG/DL (0.55-1.30) H Estimat Glomerular Filtration Rate mL/min (>60) Glucose Level 163 MG/DL (74-106) H Calcium Level 8.3 MG/DL (8.5-10.1) L Troponin I 0.300 ng/mL (0.000-0.056) White Blood Count 8.2 K/UL (4.8-10.8) Red Blood Count 3.51 M/UL (4.20-5.40) L Hemoglobin 9.4 G/DL (12.0-16.0) L Hematocrit 30.0 % (37.0-47.0) L Mean Corpuscular Volume 85 FL (80-99) Mean Corpuscular Hemoglobin 26.7 PG (27.0-31.0) L Mean Corpuscular Hemoglobin Concent 31.2 G/DL (32.0-36.0) L Red Cell Distribution Width 15.4 % (11.6-14.8) H Platelet Count 122 K/UL (150-450) L Mean Platelet Volume 6.3 FL (6.5-10.1) L Neutrophils (%) (Auto) 82.3 % (45.0-75.0) H Lymphocytes (%) (Auto) 12.6 % (20.0-45.0) L Monocytes (%) (Auto) 4.9 % (1.0-10.0) Eosinophils (%) (Auto) 0.1 % (0.0-3.0) Basophils (%) (Auto) 0.2 % (0.0-2.0) Microbiology Date/Time Source Procedure Growth Status 07/26/17 17:25 Indwelling Cath Urine Culture - Preliminary NO GROWTH AFTER 24 HOURS Resulted CHINMAY COOK Jul 28, 2017 21:20
[2017-07-28] MEDS: Albuterol/Ipratropium 3ml neb HHN SCH (23:33)
--- NOTE | 2017-07-28 23:48 | Cardiology Progress Note ---
Assessment/Plan Assessment/Plan 1. Acute diastolic heart failure possibly due to atrial fibrillation with rapid ventricular response, continue low dose beta-blockers, hold on lasix due to hypotension. 2. Acute respiratory failure, could be multifactorial in combination of chronic obstructive pulmonary disease and congestive heart failure. CXR shows no pulmonary edema. 3. 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 4. Paroxysmal atrial fibrillation, trial of metoprolol 5mg increments to keep HR in 60s, continue warfarin. 5. Moderate mitral stenosis due to mitral annular calcification and mitral leaflet calcification. Continue B-blockers. 6. Small LV with normal LVEF. Subjective Subjective Sinus rhythm at 85. Transferred to the ICU due to hypercapnic hypoxic respiratory failure. Intubated. Objective Last 24 Hour Vital Signs Date Time Temp Pulse Resp B/P (MAP) Pulse Ox O2 Delivery O2 Flow Rate FiO2 07/28/17 23:33 30 07/28/17 23:32 78 14 100 Mechanical Ventilator 30 07/28/17 23:29 78 14 30 07/28/17 21:15 88 14 40 07/28/17 21:00 81 91/46 07/28/17 20:42 87 102/47 07/28/17 20:30 64 97/49 07/28/17 20:25 81 97/49 07/28/17 19:28 86 14 40 07/28/17 17:42 76 14 100 Mechanical Ventilator 40 07/28/17 16:40 86 14 40 07/28/17 15:05 81 19 96 Facial 40 07/28/17 13:20 84 19 98 Facial 40 07/28/17 12:00 98.1 83 20 101/52 98 Bi-pap 40 98.1 07/28/17 12:00 76 07/28/17 10:30 78 20 98 Facial 40 07/28/17 09:50 40 07/28/17 09:50 79 24 Bi-pap 40 07/28/17 09:40 78 23 94 Bi-pap 40 07/28/17 09:34 78 22 95 Facial 40 07/28/17 08:13 160 142/81 07/28/17 08:00 159 07/28/17 08:00 97.9 161 22 142/81 96 Bi-pap 40 97.9 07/28/17 07:04 152 18 96 Facial 40 07/28/17 07:03 Bi-pap 40 07/28/17 07:02 96 Bi-pap 40 07/28/17 07:01 151 23 Bi-pap 40 07/28/17 04:00 151 07/28/17 04:00 98.4 145 22 143/87 100 Room Air 98.4 07/28/17 00:00 98.1 93 20 100/64 100 Room Air 98.1 07/28/17 00:00 132 Intake and Output 07/27/17 07/28/17 19:00 07:00 Intake Total 390 ml 600 ml Output Total 350 ml 200 ml Balance 40 ml 400 ml Free Water 50 ml 50 ml IV Total 300 ml 300 ml Tube Feeding 40 ml 250 ml Output Urine Total 350 ml 200 ml # Bowel Movements 1 2D Echo: EF 65%, Mod MS, Sev LAE, High PCWP, Enlarged RA/RV, small-Medium PE Laboratory Tests Test 07/28/17 04:00 07/28/17 09:00 07/28/17 14:26 07/28/17 16:55 White Blood Count 13.1 K/UL (4.8-10.8) H Red Blood Count 3.95 M/UL (4.20-5.40) L Hemoglobin 10.8 G/DL (12.0-16.0) L Hematocrit 33.9 % (37.0-47.0) L Mean Corpuscular Volume 86 FL (80-99) Mean Corpuscular Hemoglobin 27.4 PG (27.0-31.0) Mean Corpuscular Hemoglobin Concent 31.9 G/DL (32.0-36.0) L Red Cell Distribution Width 15.3 % (11.6-14.8) H Platelet Count 171 K/UL (150-450) Mean Platelet Volume 6.5 FL (6.5-10.1) Neutrophils (%) (Auto) 77.3 % (45.0-75.0) H Lymphocytes (%) (Auto) 15.5 % (20.0-45.0) L Monocytes (%) (Auto) 6.3 % (1.0-10.0) Eosinophils (%) (Auto) 0.4 % (0.0-3.0) Basophils (%) (Auto) 0.5 % (0.0-2.0) Prothrombin Time 29.6 SEC (9.30-11.50) H Prothromb Time International Ratio 2.8 (0.9-1.1) H Sodium Level 136 MMOL/L (136-145) Potassium Level 3.6 MMOL/L (3.5-5.1) Chloride Level 97 MMOL/L (98-107) L Carbon Dioxide Level 31 MMOL/L (21-32) Anion Gap 8 mmol/L (5-15) Blood Urea Nitrogen 26 mg/dL (7-18) H Creatinine 1.7 MG/DL (0.55-1.30) H Estimat Glomerular Filtration Rate mL/min (>60) Glucose Level 171 MG/DL (74-106) H Calcium Level 9.1 MG/DL (8.5-10.1) Total Bilirubin 0.5 MG/DL (0.2-1.0) Aspartate Amino Transf (AST/SGOT) 29 U/L (15-37) Alanine Aminotransferase (ALT/SGPT) 42 U/L (12-78) Alkaline Phosphatase 66 U/L (46-116) Pro-B-Type Natriuretic Peptide 4427 pg/mL (0-125) H Total Protein 6.9 G/DL (6.4-8.2) Albumin 3.0 G/DL (3.4-5.0) L Globulin 3.9 g/dL Albumin/Globulin Ratio 0.8 (1.0-2.7) L Cortisol AM Sample Pending Arterial Blood pH 7.310 (7.350-7.450) 7.290 (7.350-7.450) 7.450 (7.350-7.450) Arterial Blood Partial Pressure CO2 47.5 mmHg (35.0-45.0) H 57.6 mmHg (35.0-45.0) *H 35.5 mmHg (35.0-45.0) Arterial Blood Partial Pressure O2 100.5 mmHg (75.0-100.0) H 111.4 mmHg (75.0-100.0) H 191.6 mmHg (75.0-100.0) H Arterial Blood HCO3 23.8 mmol/L (22.0-26.0) 27.5 mmol/L (22.0-26.0) H 24.2 mmol/L (22.0-26.0) Arterial Blood Oxygen Saturation 96.7 % (92.0-98.0) 97.5 % (92.0-98.0) 98.9 % (92.0-98.0) H Arterial Blood Base Excess -2.5 0.3 0.5 Tom Test Positive Positive Positive Test 07/28/17 17:30 07/28/17 19:50 Sodium Level 135 MMOL/L (136-145) L Potassium Level 3.4 MMOL/L (3.5-5.1) L Chloride Level 98 MMOL/L (98-107) Carbon Dioxide Level 26 MMOL/L (21-32) Anion Gap 11 mmol/L (5-15) Blood Urea Nitrogen 32 mg/dL (7-18) H Creatinine 1.9 MG/DL (0.55-1.30) H Estimat Glomerular Filtration Rate mL/min (>60) Glucose Level 163 MG/DL (74-106) H Calcium Level 8.3 MG/DL (8.5-10.1) L Troponin I 0.300 ng/mL (0.000-0.056) White Blood Count 8.2 K/UL (4.8-10.8) Red Blood Count 3.51 M/UL (4.20-5.40) L Hemoglobin 9.4 G/DL (12.0-16.0) L Hematocrit 30.0 % (37.0-47.0) L Mean Corpuscular Volume 85 FL (80-99) Mean Corpuscular Hemoglobin 26.7 PG (27.0-31.0) L Mean Corpuscular Hemoglobin Concent 31.2 G/DL (32.0-36.0) L Red Cell Distribution Width 15.4 % (11.6-14.8) H Platelet Count 122 K/UL (150-450) L Mean Platelet Volume 6.3 FL (6.5-10.1) L Neutrophils (%) (Auto) 82.3 % (45.0-75.0) H Lymphocytes (%) (Auto) 12.6 % (20.0-45.0) L Monocytes (%) (Auto) 4.9 % (1.0-10.0) Eosinophils (%) (Auto) 0.1 % (0.0-3.0) Basophils (%) (Auto) 0.2 % (0.0-2.0) Microbiology Date/Time Source Procedure Growth Status 07/26/17 17:25 Indwelling Cath Urine Culture - Preliminary NO GROWTH AFTER 24 HOURS Resulted Objective HEENT: Atraumatic and normocephalic. Anicteric. Pupils are equal, round, and reactive to light and accommodation. Extraocular muscles intact, intubated. NECK: JVP cannot be assessed, No carotid bruit. Carotid upstrokes 2+ bilaterally. CARDIOVASCULAR: Normal S1 and S2. Regular rhythm. A 2/6 mid systolic murmur at the left sternal border. PMI is at fourth intercostal space in the midclavicular line. LUNGS: Diminished breath sounds in both lungs. Did not appreciate any crackles. ABDOMEN: Obese. No hepatosplenomegaly. Positive bowel sounds. EXTREMITIES: No evidence of edema, clubbing, or cyanosis. DIETER BECKWITH Jul 28, 2017 23:48
[2017-07-29] VITALS (24 sets, daily range): BP systolic 76–118; BP diastolic 38–66
[2017-07-29] MEDS: Albuterol/Ipratropium 3ml neb HHN SCH ×6 (03:24→23:08)
[2017-07-29] MEDS ORDERED: Sodium Chloride 500ML 500 ML IV ONE ×2 (03:45→22:00)
[2017-07-29 06:01] LABS: INR 1.7 (0.9-1.1)
[2017-07-29] MEDS: sitaGLIPtin 25mg tab GT SCH (06:30)
[2017-07-29 07:35] LABS: HEMATOCRIT 28.5 % (37.0-47.0); HEMOGLOBIN 8.9 G/DL (12.0-16.0); MEAN CORPUSCULAR VOLUME 85 FL (80-99); PLATELET COUNT 94 K/UL (150-450); RED BLOOD COUNT 3.36 M/UL (4.20-5.40); RED CELL DISTRIBUTION WIDTH 14.7 % (11.6-14.8); WHITE BLOOD COUNT 8.9 K/UL (4.8-10.8)
[2017-07-29 07:39] LABS: ANION GAP 10 mmol/L (5-15); BLOOD UREA NITROGEN 28 mg/dL (7-18); CALCIUM 7.6 MG/DL (8.5-10.1); CARBON DIOXIDE 25 MMOL/L (21-32); CHLORIDE 101 MMOL/L (98-107); CREATININE 1.6 MG/DL (0.55-1.30); POTASSIUM 3.3 MMOL/L (3.5-5.1); SODIUM 136 MMOL/L (136-145)
[2017-07-29 07:44] LABS: ALANINE AMINOTRANSFERASE 35 U/L (12-78); ALBUMIN 2.3 G/DL (3.4-5.0); ALKALINE PHOSPHATASE 55 U/L (46-116); ASPARTATE AMINO TRANSFERASE 28 U/L (15-37); BILIRUBIN,TOTAL 0.7 MG/DL (0.2-1.0)
[2017-07-29] MEDS: Metoprolol 25mg tab GT SCH ×2 (08:13→21:00)
--- NOTE | 2017-07-29 11:54 | Diagnostic Imaging Report ---
Indication: Dyspnea Comparison: 07/28/2017 A single view chest radiograph was obtained. Findings: Cardiomegaly is present and stable. Tubes and lines are stable. Central vascularity is mildly prominent. There is no overt CHF. IMPRESSION: No acute findings
--- NOTE | 2017-07-29 13:55 | Infectious Diseases Prog Note ---
Assessment/Plan Problems: (1) Altered mental status Assessment & Plan: with negative head CT for ICH or CVA , suspect due to retaining CO2 on blood gasses, continue ICU monitor, consult neurology if no improvement (2) Sepsis Assessment & Plan: resolved , due to coag negative staphylococcus spp grew out of four bottles , most likely real, source? continue zyvox for now , repeated blood culture to confirm clearance is negative on 07/20 , 2D ECHO didn 't show any vegetations to suggest endocarditis . will need two weeks of iv antibiotics for her bacteremia from the clearance date , doesn't meet criteria for endocarditis( low suspicion), monitor repeated blood culture (3) UTI (urinary tract infection) Assessment & Plan: with klebsiella pneumonia , S/P ceftriaxon treatment .repeated UA showed negative results for infection (4) Respiratory distress Assessment & Plan: with CO2 retention , intubated on mechanical ventilation , suspect CHF VS ASTHMA exacerbation , continue inhalers and diuretics as per renal , close monitor of UOP and renal function, fully therapeutic on Coumadin (5) Asthma exacerbation Assessment & Plan: continue inhalers, monitor CXR (6) WENDY (acute kidney injury) Assessment & Plan: improving, keep off vancomycin to avoid further nephrotoxicity , hold diuresis if needed, monitor renal function, avoid nephrotoxics (7) Leukocytosis Assessment & Plan: improved , suspect reactive due to volume contraction , repeated blood culture is negative , repeated urine culture is negative so far , await C diff toxin , monitor wbc . Subjective ROS Limited/Unobtainable: Yes Allergies: Coded Allergies: No Known Allergies (Unverified , 07/18/17) Subjective she was intubated and transferred to ICU , still altered, unresponsive , lying in bed , doesn't respond to verbal commands . no fever or chills, no cough or SOB , no diarrhea. has NGT for meds and feeding Objective Vital Signs Last 24 Hour Vital Signs Date Time Temp Pulse Resp B/P (MAP) Pulse Ox O2 Delivery O2 Flow Rate FiO2 07/29/17 13:00 106 16 98/45 98 Mechanical Ventilator 30 07/29/17 12:00 98.9 96 15 105/50 100 Mechanical Ventilator 30 98.9 07/29/17 12:00 30 07/29/17 11:23 30 07/29/17 11:23 100 14 Mechanical Ventilator 30 07/29/17 11:08 105 14 100 Mechanical Ventilator 30 3/2/18 11:08 105 14 30 3/2/18 11:00 100 16 100/49 98 Mechanical Ventilator 30 3/2/18 10:00 101 17 99/48 98 Mechanical Ventilator 30 3/2/18 09:30 107 14 30 3/2/18 09:00 100 16 118/53 98 Mechanical Ventilator 30 3/2/18 08:13 102 94/53 3/2/18 08:00 99.0 95 14 112/54 100 Mechanical Ventilator 30 99.0 /2/18 08:00 99 3/2/18 07:43 102 14 Mechanical Ventilator 30 /2/18 07:43 30 /2/18 07:42 101 14 100 Mechanical Ventilator 30 3/2/18 07:30 100 14 30 /2/18 07:00 100 16 102/48 98 Mechanical Ventilator 30 3/2/18 06:00 100 16 101/44 100 Mechanical Ventilator 30 /2/18 05:27 97 14 30 //18 05:00 94 16 105/49 100 Mechanical Ventilator 30 07/29/18 04:00 98.0 94 14 105/53 100 Mechanical Ventilator 30 98.0 //18 04:00 94 /2/18 04:00 30 /2/18 03:30 89 14 100 Mechanical Ventilator 30 07/29/18 03:23 30 //18 03:22 90 14 100 Mechanical Ventilator 30 /2/18 03:20 90 14 30 /2/18 03:00 93 14 76/45 100 Mechanical Ventilator 30 18 02:00 82 16 90/38 100 Mechanical Ventilator 30 18 01:21 92 14 30 /2/18 01:00 83 16 92/38 100 Mechanical Ventilator 30 218 00:00 98.6 84 16 82/38 100 Mechanical Ventilator 30 98.6 /2/18 00:00 30 2/18 00:00 81 3 23:45 78 14 100 Mechanical Ventilator 30 /18 23:33 30 3/18 23:32 78 14 100 Mechanical Ventilator 30 /18 23:29 78 14 30 /18 23:00 30 07/28/17 23:00 81 14 84/47 100 Mechanical Ventilator 30 18 22:00 84 14 78/45 100 Mechanical Ventilator 40 07/28/17 21:15 88 14 40 07/28/17 21:00 81 91/46 07/28/17 21:00 81 15 91/46 98 Mechanical Ventilator 40 07/28/17 20:42 87 102/47 07/28/17 20:30 64 97/49 07/28/17 20:25 81 97/49 07/28/17 20:00 99.5 81 16 92/47 97 Mechanical Ventilator 40 99.5 07/28/17 20:00 40 07/28/17 19:28 86 14 40 07/28/17 17:42 76 14 100 Mechanical Ventilator 40 07/28/17 16:40 86 14 40 07/28/17 15:05 81 19 96 Facial 40 Height (Feet): 5 Weight (Pounds): 161 General Appearance: WD/WN, no acute distress HEENT: normocephalic, atraumatic, anicteric, mucous membranes moist Respiratory/Chest: chest wall non-tender, no respiratory distress, no accessory muscle use, decreased breath sounds, expiratory wheezing Cardiovascular: normal peripheral pulses, normal rate, regular rhythm, no gallop/murmur, no JVD Abdomen: normal bowel sounds, soft, non tender, no organomegaly, non distended , no mass, no scars Extremities: no cyanosis, no clubbing Skin: no rash, no lesions, no ulcers Neurologic/Psychiatric: unresponsiveness Lymphatic: no neck adenopathy, no groin adenopathy Musculoskeletal: normal muscle bulk, no effusion Microbiology Date/Time Source Procedure Growth Status 07/26/17 17:25 Indwelling Cath Urine Culture - Final NO GROWTH AFTER 48 HOURS Complete Laboratory Tests Test 07/28/17 14:26 07/28/17 16:55 07/28/17 17:30 07/28/17 19:50 Arterial Blood pH 7.290 (7.350-7.450) 7.450 (7.350-7.450) Arterial Blood Partial Pressure CO2 57.6 mmHg (35.0-45.0) *H 35.5 mmHg (35.0-45.0) Arterial Blood Partial Pressure O2 111.4 mmHg (75.0-100.0) H 191.6 mmHg (75.0-100.0) H Arterial Blood HCO3 27.5 mmol/L (22.0-26.0) H 24.2 mmol/L (22.0-26.0) Arterial Blood Oxygen Saturation 97.5 % (92.0-98.0) 98.9 % (92.0-98.0) H Arterial Blood Base Excess 0.3 0.5 Tom Test Positive Positive Sodium Level 135 MMOL/L (136-145) L Potassium Level 3.4 MMOL/L (3.5-5.1) L Chloride Level 98 MMOL/L (98-107) Carbon Dioxide Level 26 MMOL/L (21-32) Anion Gap 11 mmol/L (5-15) Blood Urea Nitrogen 32 mg/dL (7-18) H Creatinine 1.9 MG/DL (0.55-1.30) H Estimat Glomerular Filtration Rate mL/min (>60) Glucose Level 163 MG/DL (74-106) H Calcium Level 8.3 MG/DL (8.5-10.1) L Troponin I 0.300 ng/mL (0.000-0.056) White Blood Count 8.2 K/UL (4.8-10.8) Red Blood Count 3.51 M/UL (4.20-5.40) L Hemoglobin 9.4 G/DL (12.0-16.0) L Hematocrit 30.0 % (37.0-47.0) L Mean Corpuscular Volume 85 FL (80-99) Mean Corpuscular Hemoglobin 26.7 PG (27.0-31.0) L Mean Corpuscular Hemoglobin Concent 31.2 G/DL (32.0-36.0) L Red Cell Distribution Width 15.4 % (11.6-14.8) H Platelet Count 122 K/UL (150-450) L Mean Platelet Volume 6.3 FL (6.5-10.1) L Neutrophils (%) (Auto) 82.3 % (45.0-75.0) H Lymphocytes (%) (Auto) 12.6 % (20.0-45.0) L Monocytes (%) (Auto) 4.9 % (1.0-10.0) Eosinophils (%) (Auto) 0.1 % (0.0-3.0) Basophils (%) (Auto) 0.2 % (0.0-2.0) Test 07/29/17 04:00 07/29/17 04:20 Arterial Blood pH 7.506 (7.350-7.450) Arterial Blood Partial Pressure CO2 27.2 mmHg (35.0-45.0) L Arterial Blood Partial Pressure O2 132.3 mmHg (75.0-100.0) H Arterial Blood HCO3 21.0 mmol/L (22.0-26.0) L Arterial Blood Oxygen Saturation 98.0 % (92.0-98.0) Arterial Blood Base Excess -1.3 Tom Test White Blood Count 8.9 K/UL (4.8-10.8) Red Blood Count 3.36 M/UL (4.20-5.40) L Hemoglobin 8.9 G/DL (12.0-16.0) L Hematocrit 28.5 % (37.0-47.0) L Mean Corpuscular Volume 85 FL (80-99) Mean Corpuscular Hemoglobin 26.6 PG (27.0-31.0) L Mean Corpuscular Hemoglobin Concent 31.3 G/DL (32.0-36.0) L Red Cell Distribution Width 14.7 % (11.6-14.8) Platelet Count 94 K/UL (150-450) L Mean Platelet Volume 6.4 FL (6.5-10.1) L Neutrophils (%) (Auto) % (45.0-75.0) Lymphocytes (%) (Auto) % (20.0-45.0) Monocytes (%) (Auto) % (1.0-10.0) Eosinophils (%) (Auto) % (0.0-3.0) Basophils (%) (Auto) % (0.0-2.0) Differential Total Cells Counted 100 Neutrophils % (Manual) 77 % (45-75) H Lymphocytes % (Manual) 17 % (20-45) L Monocytes % (Manual) 6 % (1-10) Eosinophils % (Manual) 0 % (0-3) Basophils % (Manual) 0 % (0-2) Band Neutrophils 0 % (0-8) Platelet Estimate Decreased L Platelet Morphology Normal Hypochromasia 1+ Anisocytosis 1+ Prothrombin Time 18.4 SEC (9.30-11.50) H Prothromb Time International Ratio 1.7 (0.9-1.1) H Sodium Level 136 MMOL/L (136-145) Potassium Level 3.3 MMOL/L (3.5-5.1) L Chloride Level 101 MMOL/L (98-107) Carbon Dioxide Level 25 MMOL/L (21-32) Anion Gap 10 mmol/L (5-15) Blood Urea Nitrogen 28 mg/dL (7-18) H Creatinine 1.6 MG/DL (0.55-1.30) H Estimat Glomerular Filtration Rate mL/min (>60) Glucose Level 170 MG/DL (74-106) H Calcium Level 7.6 MG/DL (8.5-10.1) L Total Bilirubin 0.7 MG/DL (0.2-1.0) Aspartate Amino Transf (AST/SGOT) 28 U/L (15-37) Alanine Aminotransferase (ALT/SGPT) 35 U/L (12-78) Alkaline Phosphatase 55 U/L (46-116) Troponin I 0.294 ng/mL (0.000-0.056) Total Protein 4.7 G/DL (6.4-8.2) #L Albumin 2.3 G/DL (3.4-5.0) L Globulin 2.4 g/dL Albumin/Globulin Ratio 1.0 (1.0-2.7) Current Medications Medications (Trade) Dose Ordered Sig/Tam Route PRN Reason Start Time Stop Time Status Last Admin Dose Admin Acetaminophen (Tylenol) 650 mg Q6H PRN ORAL Mild Pain/Temp > 100.5 07/28/17 16:30 08/17/17 22:29 Albuterol Sulfate (Proventil) 2.5 mg Q4H PRN HHN Shortness of Breath 07/28/17 17:00 07/31/17 00:59 07/28/17 17:42 Albuterol/ Ipratropium (Albuterol/ Ipratropium) 3 ml Q4HRT HHN 07/28/17 23:00 08/02/17 22:59 07/29/17 11:11 Atorvastatin Calcium (Lipitor) 10 mg QHS GT 07/28/17 21:00 08/17/17 20:59 07/28/17 21:26 Dextrose (Dextrose 50%) STAT PRN IV Hypoglycemia 07/28/17 17:00 08/17/17 16:59 Lansoprazole (Prevacid) 30 mg DAILY GT 07/29/17 09:00 08/26/17 08:59 07/29/17 08:12 Levothyroxine Sodium (Synthroid) 75 mcg ACBREAKFAST GT 07/29/17 06:30 08/28/17 06:29 07/29/17 06:26 Linezolid 300 ml @ 300 mls/hr Q12HR IVPB 07/28/17 21:00 08/03/17 23:59 07/29/17 08:12 Metoprolol Tartrate (Lopressor) 25 mg Q12HR GT 07/28/17 21:00 08/27/17 08:59 Morphine Sulfate (Morphine Sulfate) 1 mg Q4H PRN IVP Moderate to Severe Pain 07/28/17 20:30 08/04/17 20:29 Sitagliptin Phosphate (Januvia) 25 mg ACBREAKFAST GT 07/29/17 06:30 08/20/17 06:29 07/29/17 06:30 Warfarin Sodium (Coumadin per pharmacy) 1 ea DAILYPRN PRN MISC Per rx protocol 07/29/17 09:00 08/28/17 08:59 Warfarin Sodium (Coumadin) 2 mg COUMADIN ONCE ORAL 07/29/17 17:00 07/29/17 17:01 Juan Foy M.D. Jul 29, 2017 13:55
--- NOTE | 2017-07-29 15:21 | Pulmonology Progress Note ---
Assessment/Plan Assessment/Plan 1. Acute respiratory failure; now intubated 2. Congestive heart failure. 3. Chronic asthma with exacerbation 4. Obstructive sleep apnea 5. Urinary tract infection, Klebsiella 6. 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 Diabetes. 8. Hypothyroidism 9. WENDY, 10. Hyponatremia 11. pneumonia per ID, however chest x-ray clear I will begin weaning. Continue event as is for now. Antibiotics per ID Subjective Interval Events: Intubated yesterday. Chest x-ray looks fairly clear. FiO2 30 % Constitutional: Reports: no symptoms HEENT: Repors: no symptoms Respiratory: Reports: no symptoms Cardiovascular: Reports: no symptoms Gastrointestinal/Abdominal: Reports: no symptoms Allergies: Coded Allergies: No Known Allergies (Unverified , 07/18/17) Objective Last 24 Hour Vital Signs Date Time Temp Pulse Resp B/P (MAP) Pulse Ox O2 Delivery O2 Flow Rate FiO2 07/29/17 15:11 103 14 100 Mechanical Ventilator 30 07/29/17 15:10 103 14 30 07/29/17 14:02 107 14 30 07/29/17 13:00 106 16 98/45 98 Mechanical Ventilator 30 07/29/17 12:00 98.9 96 15 105/50 100 Mechanical Ventilator 30 98.9 07/29/17 12:00 30 07/29/17 11:23 30 07/29/17 11:23 100 14 Mechanical Ventilator 30 07/29/17 11:08 105 14 100 Mechanical Ventilator 30 07/29/17 11:08 105 14 30 07/29/17 11:00 100 16 100/49 98 Mechanical Ventilator 30 07/29/17 10:00 101 17 99/48 98 Mechanical Ventilator 30 07/29/17 09:30 107 14 30 07/29/17 09:00 100 16 118/53 98 Mechanical Ventilator 30 07/29/17 08:13 102 94/53 07/29/17 08:00 99.0 95 14 112/54 100 Mechanical Ventilator 30 99.0 07/29/17 08:00 99 07/29/17 07:43 102 14 Mechanical Ventilator 30 07/29/17 07:43 30 07/29/17 07:42 101 14 100 Mechanical Ventilator 30 07/29/17 07:30 100 14 30 07/29/17 07:00 100 16 102/48 98 Mechanical Ventilator 30 3/2/18 06:00 100 16 101/44 100 Mechanical Ventilator 30 07/29/17 05:27 97 14 30 07/29/17 05:00 94 16 105/49 100 Mechanical Ventilator 30 07/29/17 04:00 98.0 94 14 105/53 100 Mechanical Ventilator 30 98.0 07/29/17 04:00 94 07/29/17 04:00 30 07/29/17 03:30 89 14 100 Mechanical Ventilator 30 07/29/17 03:23 30 07/29/17 03:22 90 14 100 Mechanical Ventilator 30 07/29/17 03:20 90 14 30 07/29/17 03:00 93 14 76/45 100 Mechanical Ventilator 30 07/29/17 02:00 82 16 90/38 100 Mechanical Ventilator 30 07/29/17 01:21 92 14 30 07/29/17 01:00 83 16 92/38 100 Mechanical Ventilator 30 07/29/17 00:00 98.6 84 16 82/38 100 Mechanical Ventilator 30 98.6 07/29/17 00:00 30 07/29/17 00:00 81 07/28/17 23:45 78 14 100 Mechanical Ventilator 30 07/28/17 23:33 30 07/28/17 23:32 78 14 100 Mechanical Ventilator 30 07/28/17 23:29 78 14 30 07/28/17 23:00 30 07/28/17 23:00 81 14 84/47 100 Mechanical Ventilator 30 07/28/17 22:00 84 14 78/45 100 Mechanical Ventilator 40 07/28/17 21:15 88 14 40 07/28/17 21:00 81 91/46 07/28/17 21:00 81 15 91/46 98 Mechanical Ventilator 40 07/28/17 20:42 87 102/47 07/28/17 20:30 64 97/49 07/28/17 20:25 81 97/49 07/28/17 20:00 99.5 81 16 92/47 97 Mechanical Ventilator 40 99.5 07/28/17 20:00 40 07/28/17 19:28 86 14 40 07/28/17 17:42 76 14 100 Mechanical Ventilator 40 07/28/17 16:40 86 14 40 Intake and Output 07/28/17 07/29/17 19:00 07:00 Intake Total 500 ml Output Total 150 ml 400 ml Balance -150 ml 100 ml IV Total 500 ml Output Urine Total 150 ml 400 ml # Bowel Movements 1 General Appearance: no acute distress HEENT: normocephalic Respiratory/Chest: chest wall non-tender, lungs clear Cardiovascular: normal peripheral pulses, normal rate Abdomen: normal bowel sounds, soft, non tender Microbiology Date/Time Source Procedure Growth Status 07/26/17 17:25 Indwelling Cath Urine Culture - Final NO GROWTH AFTER 48 HOURS Complete Laboratory Tests 07/28/17 16:55: Arterial Blood pH 7.450, Arterial Blood Partial Pressure CO2 35.5, Arterial Blood Partial Pressure O2 191.6H, Arterial Blood HCO3 24.2, Arterial Blood Oxygen Saturation 98.9H, Arterial Blood Base Excess 0.5, Tom Test Positive 07/28/17 17:30: Sodium Level 135L, Potassium Level 3.4L, Chloride Level 98, Carbon Dioxide Level 26, Anion Gap 11, Blood Urea Nitrogen 32H, Creatinine 1.9H, Estimat Glomerular Filtration Rate , Glucose Level 163H, Calcium Level 8.3L, Troponin I 0.300H 07/28/17 19:50: White Blood Count 8.2, Red Blood Count 3.51L, Hemoglobin 9.4L, Hematocrit 30.0L , Mean Corpuscular Volume 85, Mean Corpuscular Hemoglobin 26.7L, Mean Corpuscular Hemoglobin Concent 31.2L, Red Cell Distribution Width 15.4H, Platelet Count 122L, Mean Platelet Volume 6.3L, Neutrophils (%) (Auto) 82.3H, Lymphocytes (%) (Auto) 12.6L, Monocytes (%) (Auto) 4.9, Eosinophils (%) (Auto) 0.1, Basophils (%) (Auto) 0.2 07/29/17 04:00: Arterial Blood pH 7.506H, Arterial Blood Partial Pressure CO2 27.2L, Arterial Blood Partial Pressure O2 132.3H, Arterial Blood HCO3 21.0L, Arterial Blood Oxygen Saturation 98.0, Arterial Blood Base Excess -1.3, Tom Test 07/29/17 04:20: White Blood Count 8.9, Red Blood Count 3.36L, Hemoglobin 8.9L, Hematocrit 28.5L , Mean Corpuscular Volume 85, Mean Corpuscular Hemoglobin 26.6L, Mean Corpuscular Hemoglobin Concent 31.3L, Red Cell Distribution Width 14.7, Platelet Count 94L, Mean Platelet Volume 6.4L, Neutrophils (%) (Auto) , Lymphocytes (%) (Auto) , Monocytes (%) (Auto) , Eosinophils (%) (Auto) , Basophils (%) (Auto) , Differential Total Cells Counted 100, Neutrophils % ( Manual) 77H, Lymphocytes % (Manual) 17L, Monocytes % (Manual) 6, Eosinophils % ( Manual) 0, Basophils % (Manual) 0, Band Neutrophils 0, Platelet Estimate DecreasedL, Platelet Morphology Normal, Hypochromasia 1+, Anisocytosis 1+, Prothrombin Time 18.4H, Prothromb Time International Ratio 1.7H, Sodium Level 136, Potassium Level 3.3L, Chloride Level 101, Carbon Dioxide Level 25, Anion Gap 10, Blood Urea Nitrogen 28H, Creatinine 1.6H, Estimat Glomerular Filtration Rate , Glucose Level 170H, Calcium Level 7.6L, Total Bilirubin 0.7, Aspartate Amino Transf (AST/SGOT) 28, Alanine Aminotransferase (ALT/SGPT) 35, Alkaline Phosphatase 55, Troponin I 0.294H, Total Protein 4.7#L, Albumin 2.3L, Globulin 2.4, Albumin/Globulin Ratio 1.0 Current Medications Medications (Trade) Dose Ordered Sig/Tam Route PRN Reason Start Time Stop Time Status Last Admin Dose Admin Acetaminophen (Tylenol) 650 mg Q6H PRN ORAL Mild Pain/Temp > 100.5 07/28/17 16:30 08/17/17 22:29 Albuterol Sulfate (Proventil) 2.5 mg Q4H PRN HHN Shortness of Breath 07/28/17 17:00 07/31/17 00:59 07/28/17 17:42 Albuterol/ Ipratropium (Albuterol/ Ipratropium) 3 ml Q4HRT HHN 07/28/17 23:00 08/02/17 22:59 07/29/17 15:11 Atorvastatin Calcium (Lipitor) 10 mg QHS GT 07/28/17 21:00 08/17/17 20:59 07/28/17 21:26 Dextrose (Dextrose 50%) STAT PRN IV Hypoglycemia 07/28/17 17:00 08/17/17 16:59 Lansoprazole (Prevacid) 30 mg DAILY GT 07/29/17 09:00 08/26/17 08:59 07/29/17 08:12 Levothyroxine Sodium (Synthroid) 75 mcg ACBREAKFAST GT 07/29/17 06:30 08/28/17 06:29 07/29/17 06:26 Linezolid 300 ml @ 300 mls/hr Q12HR IVPB 07/28/17 21:00 08/03/17 23:59 07/29/17 08:12 Metoprolol Tartrate (Lopressor) 25 mg Q12HR GT 07/28/17 21:00 08/27/17 08:59 Morphine Sulfate (Morphine Sulfate) 1 mg Q4H PRN IVP Moderate to Severe Pain 07/28/17 20:30 08/04/17 20:29 Sitagliptin Phosphate (Januvia) 25 mg ACBREAKFAST GT 07/29/17 06:30 08/20/17 06:29 07/29/17 06:30 Warfarin Sodium (Coumadin per pharmacy) 1 ea DAILYPRN PRN MISC Per rx protocol 07/29/17 09:00 08/28/17 08:59 Warfarin Sodium (Coumadin) 2 mg COUMADIN ONCE ORAL 07/29/17 17:00 07/29/17 17:01 Arnaud Wick MD Jul 29, 2017 15:21
[2017-07-29] MEDS ORDERED: Warfarin Sodium 2mg ORAL ONE (17:00)
[2017-07-29] MEDS ORDERED: Digoxin 0.5mg/2ml Inj IVP ONE (22:00)
[2017-07-30] VITALS (33 sets, daily range): BP systolic 50–145; BP diastolic 32–83
[2017-07-30] MEDS: Albuterol/Ipratropium 3ml neb HHN SCH ×5 (03:17→19:55)
[2017-07-30] MEDS ORDERED: Sodium Chloride 500ML 500 ML IV ONE ×2 (03:45→16:15)
[2017-07-30 04:13] LABS: HEMATOCRIT 27.4 % (37.0-47.0); HEMOGLOBIN 8.8 G/DL (12.0-16.0); MEAN CORPUSCULAR VOLUME 86 FL (80-99); PLATELET COUNT 78 K/UL (150-450); RED CELL DISTRIBUTION WIDTH 15.4 % (11.6-14.8); WHITE BLOOD COUNT 7.5 K/UL (4.8-10.8)
[2017-07-30] MEDS ORDERED: Metoprolol 5mg/5ml Inj IVP ONE (04:30)
[2017-07-30 05:03] LABS: ANION GAP 10 mmol/L (5-15); BLOOD UREA NITROGEN 26 mg/dL (7-18); CALCIUM 7.7 MG/DL (8.5-10.1); CARBON DIOXIDE 24 MMOL/L (21-32); CHLORIDE 103 MMOL/L (98-107); CREATININE 1.8 MG/DL (0.55-1.30); POTASSIUM 3.7 MMOL/L (3.5-5.1); SODIUM 137 MMOL/L (136-145)
[2017-07-30] MEDS: sitaGLIPtin 25mg tab GT SCH (06:29)
[2017-07-30] MEDS: Metoprolol 25mg tab GT SCH ×2 (09:22→21:00)
[2017-07-30] MEDS ORDERED: LORazepam Inj 2mg/ml 1ml IV PRN (10:30)
--- NOTE | 2017-07-30 11:09 | Diagnostic Imaging Report ---
Indication: Abnormal breath sounds Comparison: 07/29/2017 A single view chest radiograph was obtained. Findings: Cardiomegaly is stable. Tubes and lines are stable. Some interstitial prominence noted but there are no change demonstrated. IMPRESSION: No significant change coordinator one day
[2017-07-30] MEDS: Albuterol ud Inhalation HHN PRN (11:38)
--- NOTE | 2017-07-30 12:15 | Pulmonology Progress Note ---
Assessment/Plan Assessment/Plan 1. Acute respiratory failure; now intubated 2. Congestive heart failure. 3. Chronic asthma with exacerbation 4. Obstructive sleep apnea 5. Urinary tract infection, Klebsiella 6. 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 Diabetes. 8. Hypothyroidism 9. WENDY, 10. Hyponatremia 11. pneumonia per ID, however chest x-ray clear Hold off on weaning; pt remains tachycardic to 145/min Continue vent as is for now. Antibiotics per ID Subjective Interval Events: Tachypnic depsite sedation; on vent. AC mode; FiO2 30% Constitutional: Reports: no symptoms HEENT: Repors: no symptoms Respiratory: Reports: no symptoms Cardiovascular: Reports: no symptoms Gastrointestinal/Abdominal: Reports: no symptoms Genitourinary: Reports: no symptoms Allergies: Coded Allergies: No Known Allergies (Unverified , 07/18/17) Objective Last 24 Hour Vital Signs Date Time Temp Pulse Resp B/P (MAP) Pulse Ox O2 Delivery O2 Flow Rate FiO2 07/30/17 11:45 119 25 100 Mechanical Ventilator 07/30/17 11:39 115 24 96 Mechanical Ventilator 07/30/17 11:01 Mechanical Ventilator 30 07/30/17 11:00 Mechanical Ventilator 30 07/30/17 10:30 151 28 30 07/30/17 09:22 144 109/79 07/30/17 08:35 122 16 30 07/30/17 08:00 117 07/30/17 08:00 98.7 122 16 107/58 94 Mechanical Ventilator 30 98.7 07/30/17 07:33 109 14 100 Mechanical Ventilator 30 07/30/17 07:27 30 07/30/17 07:27 100 14 30 07/30/17 07:26 100 16 99 Mechanical Ventilator 30 07/30/17 07:00 122 16 108/53 95 Mechanical Ventilator 30 07/30/17 06:00 99 16 91/52 99 Mechanical Ventilator 30 07/30/17 06:00 30 07/30/17 05:15 90 14 30 07/30/17 05:00 75 16 100/50 99 Mechanical Ventilator 30 07/30/17 04:48 99 101/60 07/30/17 04:00 30 07/30/17 04:00 99.0 97 16 86/49 99 Mechanical Ventilator 30 99.0 07/30/17 04:00 97 07/30/17 03:26 103 14 100 Mechanical Ventilator 30 07/30/17 03:17 90 16 98 Mechanical Ventilator 30 07/30/17 03:17 90 16 30 07/30/17 03:17 30 07/30/17 02:00 95 16 86/46 99 Mechanical Ventilator 30 07/30/17 01:13 110 14 30 07/30/17 01:00 106 16 88/45 99 Mechanical Ventilator 30 07/30/17 00:00 110 07/30/17 00:00 99.5 110 15 81/41 99 Mechanical Ventilator 30 99.5 07/30/17 00:00 30 07/29/17 23:18 101 14 100 Mechanical Ventilator 30 07/29/17 23:09 30 07/29/17 23:08 109 14 98 Mechanical Ventilator 30 07/29/17 23:08 109 14 30 07/29/17 23:00 109 14 111/66 99 Mechanical Ventilator 30 07/29/17 22:17 102 07/29/17 22:00 104 14 86/50 99 Mechanical Ventilator 30 07/29/17 21:00 106 81/50 07/29/17 21:00 104 14 30 07/29/17 21:00 106 14 81/50 99 Mechanical Ventilator 30 07/29/17 20:20 100.9 07/29/17 20:00 30 07/29/17 20:00 106 14 85/48 99 Mechanical Ventilator 30 07/29/17 20:00 100.8 117 14 85/48 98 Mechanical Ventilator 30 100.8 07/29/17 20:00 117 07/29/17 19:34 120 14 100 Mechanical Ventilator 30 07/29/17 19:24 117 14 100 Mechanical Ventilator 30 07/29/17 19:24 30 18 19:24 117 14 30 07/29/17 19:21 99.5 18 19:00 102.0 115 14 79/45 99 Mechanical Ventilator 30 102.0 07/29/17 18:00 115 14 95/54 98 Mechanical Ventilator 30 07/29/17 17:03 107 14 30 07/29/17 17:00 116 14 98/48 98 Mechanical Ventilator 30 07/29/17 16:00 98.7 110 14 107/46 98 Mechanical Ventilator 30 98.7 07/29/17 16:00 112 07/29/17 16:00 30 07/29/17 15:21 30 3/2/18 15:21 98 14 Mechanical Ventilator 30 07/29/17 15:11 103 14 100 Mechanical Ventilator 30 07/29/17 15:10 103 14 30 07/29/17 15:00 112 14 103/44 98 Mechanical Ventilator 30 07/29/17 14:02 107 14 30 07/29/17 14:00 110 16 105/47 98 Mechanical Ventilator 30 07/29/17 13:00 106 16 98/45 98 Mechanical Ventilator 30 Intake and Output 07/29/17 07/30/17 19:00 07:00 Intake Total 535 ml 660 ml Output Total 540 ml 550 ml Balance -5 ml 110 ml Free Water 120 ml IV Total 400 ml Tube Feeding 135 ml 540 ml Output Urine Total 540 ml 550 ml # Bowel Movements 1 General Appearance: no acute distress HEENT: normocephalic Respiratory/Chest: chest wall non-tender, lungs clear Cardiovascular: normal peripheral pulses Abdomen: normal bowel sounds, soft, non tender Extremities: no cyanosis Laboratory Tests 07/30/17 03:50: White Blood Count 7.5, Red Blood Count 3.20L, Hemoglobin 8.8L, Hematocrit 27.4L , Mean Corpuscular Volume 86, Mean Corpuscular Hemoglobin 27.6, Mean Corpuscular Hemoglobin Concent 32.2, Red Cell Distribution Width 15.4H, Platelet Count 78L, Mean Platelet Volume 6.8, Neutrophils (%) (Auto) , Lymphocytes (%) (Auto) , Monocytes (%) (Auto) , Eosinophils (%) (Auto) , Basophils (%) (Auto) , Differential Total Cells Counted 100, Neutrophils % ( Manual) 83H, Lymphocytes % (Manual) 10L, Monocytes % (Manual) 5, Eosinophils % ( Manual) 1, Basophils % (Manual) 1, Band Neutrophils 0, Platelet Estimate DecreasedL, Platelet Morphology Normal, Hypochromasia 2+, Anisocytosis 1+, Spherocytes 1+, Prothrombin Time 20.7H, Prothromb Time International Ratio 2.0H , Sodium Level 137, Potassium Level 3.7, Chloride Level 103, Carbon Dioxide Level 24, Anion Gap 10, Blood Urea Nitrogen 26H, Creatinine 1.8H, Estimat Glomerular Filtration Rate , Glucose Level 157H, Calcium Level 7.7L, Pro-B-Type Natriuretic Peptide 2587H 07/30/17 04:00: Arterial Blood pH 7.391, Arterial Blood Partial Pressure CO2 30.8L, Arterial Blood Partial Pressure O2 98.3, Arterial Blood HCO3 18.3L, Arterial Blood Oxygen Saturation 96.9, Arterial Blood Base Excess -5.9, Tom Test Positive Current Medications Medications (Trade) Dose Ordered Sig/Tam Route PRN Reason Start Time Stop Time Status Last Admin Dose Admin Acetaminophen (Tylenol) 650 mg Q6H PRN ORAL Mild Pain/Temp > 100.5 07/28/17 16:30 08/17/17 22:29 07/29/17 19:21 Albuterol Sulfate (Proventil) 2.5 mg Q4H PRN HHN Shortness of Breath 07/28/17 17:00 07/31/17 00:59 07/30/17 11:38 Albuterol/ Ipratropium (Albuterol/ Ipratropium) 3 ml Q4HRT HHN 07/28/17 23:00 08/02/17 22:59 07/30/17 07:26 Atorvastatin Calcium (Lipitor) 10 mg QHS GT 07/28/17 21:00 08/17/17 20:59 07/29/17 21:13 Dextrose (Dextrose 50%) STAT PRN IV Hypoglycemia 07/28/17 17:00 08/17/17 16:59 Lansoprazole (Prevacid) 30 mg DAILY GT 07/29/17 09:00 08/26/17 08:59 07/30/17 09:21 Levothyroxine Sodium (Synthroid) 75 mcg ACBREAKFAST GT 07/29/17 06:30 08/28/17 06:29 07/30/17 06:29 Linezolid 300 ml @ 300 mls/hr Q12HR IVPB 07/28/17 21:00 08/03/17 23:59 07/30/17 09:21 Lorazepam (Ativan 2mg/ml 1ml) 1 mg EVERY 8 HOURS PRN IV For Anxiety 07/30/17 10:30 08/06/17 10:29 07/30/17 10:43 Metoprolol Tartrate (Lopressor) 25 mg Q12HR GT 07/28/17 21:00 08/27/17 08:59 07/30/17 09:22 Morphine Sulfate (Morphine Sulfate) 1 mg Q4H PRN IVP Moderate to Severe Pain 07/28/17 20:30 08/04/17 20:29 07/30/17 09:53 Sitagliptin Phosphate (Januvia) 25 mg ACBREAKFAST GT 07/29/17 06:30 08/20/17 06:29 07/30/17 06:29 Warfarin Sodium (Coumadin per pharmacy) 1 ea DAILYPRN PRN MISC Per rx protocol 07/29/17 09:00 08/28/17 08:59 Warfarin Sodium (Coumadin) 1 mg COUMADIN ORAL 07/30/17 17:00 08/04/17 16:59 Arnaud Wick MD Jul 30, 2017 12:15
[2017-07-30] MEDS: NovoLOG Insulin Flexpen SUBQ SCH ×2 (14:32→18:00)
--- NOTE | 2017-07-30 14:49 | Infectious Diseases Prog Note ---
Assessment/Plan Problems: (1) Aspiration pneumonia Assessment & Plan: with fever , will send sputum culture and start zosyn empiric coverage , already on zyvox , monitor CXR, keep HOB>30 degree, aspiration precaution (2) Altered mental status Assessment & Plan: with negative head CT for ICH or CVA , suspect due to retaining CO2 on blood gasses, continue ICU monitor, consult neurology if no improvement (3) Sepsis Assessment & Plan: resolved , due to coag negative staphylococcus spp grew out of four bottles , most likely real, source? continue zyvox for now , repeated blood culture to confirm clearance is negative on 07/20 , 2D ECHO didn 't show any vegetations to suggest endocarditis . will need two weeks of iv antibiotics for her bacteremia from the clearance date , doesn't meet criteria for endocarditis( low suspicion), repeated blood cultures remained negative . EOT 08/01/17 (4) UTI (urinary tract infection) Assessment & Plan: with klebsiella pneumonia , S/P ceftriaxon treatment .repeated UA showed negative results for infection (5) Respiratory distress Assessment & Plan: with CO2 retention , intubated on mechanical ventilation , suspect CHF VS ASTHMA exacerbation , continue inhalers and diuretics as per renal , close monitor of UOP and renal function, fully therapeutic on Coumadin (6) Asthma exacerbation Assessment & Plan: continue inhalers, may need steroids, monitor CXR (7) WENDY (acute kidney injury) Assessment & Plan: with low urine output, monitor renal function, avoid nephrotoxics, may need hydration, nephrology is following Subjective ROS Limited/Unobtainable: Yes Allergies: Coded Allergies: No Known Allergies (Unverified , 07/18/17) Subjective she was still intubated on mechanical ventilation in ICU , still altered, unresponsive , lying in bed , doesn't respond to verbal commands . spiked fever last night , had diarrhea. low urine output Objective Vital Signs Last 24 Hour Vital Signs Date Time Temp Pulse Resp B/P (MAP) Pulse Ox O2 Delivery O2 Flow Rate FiO2 07/30/17 14:19 99.5 07/30/17 14:00 146 95/42 97 Mechanical Ventilator 07/30/17 13:20 100.0 07/30/17 13:00 150 22 97/40 95 Mechanical Ventilator 30 07/30/17 12:55 105 26 30 07/30/17 12:00 107 3/3/18 12:00 30 07/30/17 12:00 99.2 108 20 140/70 100 Mechanical Ventilator 30 99.2 07/30/17 11:45 119 25 100 Mechanical Ventilator 07/30/17 11:39 115 24 96 Mechanical Ventilator 07/30/17 11:01 Mechanical Ventilator 30 07/30/17 11:00 Mechanical Ventilator 30 07/30/17 11:00 135 28 145/80 97 Mechanical Ventilator 30 07/30/17 10:30 151 28 30 07/30/17 10:00 144 28 124/73 92 Mechanical Ventilator 30 07/30/17 09:22 144 109/79 07/30/17 09:00 140 16 123/82 95 Mechanical Ventilator 30 07/30/17 08:35 122 16 30 07/30/17 08:00 117 07/30/17 08:00 98.7 122 16 107/58 94 Mechanical Ventilator 30 98.7 07/30/17 07:33 109 14 100 Mechanical Ventilator 30 07/30/17 07:27 30 07/30/17 07:27 100 14 30 07/30/17 07:26 100 16 99 Mechanical Ventilator 30 07/30/17 07:00 122 16 108/53 95 Mechanical Ventilator 30 07/30/17 06:00 99 16 91/52 99 Mechanical Ventilator 30 07/30/17 06:00 30 07/30/17 05:15 90 14 30 07/30/17 05:00 75 16 100/50 99 Mechanical Ventilator 30 07/30/17 04:48 99 101/60 07/30/17 04:00 30 07/30/17 04:00 99.0 97 16 86/49 99 Mechanical Ventilator 30 99.0 07/30/17 04:00 97 07/30/17 03:26 103 14 100 Mechanical Ventilator 30 07/30/17 03:17 90 16 98 Mechanical Ventilator 30 07/30/17 03:17 90 16 30 07/30/17 03:17 30 07/30/17 02:00 95 16 86/46 99 Mechanical Ventilator 30 07/30/17 01:13 110 14 30 07/30/17 01:00 106 16 88/45 99 Mechanical Ventilator 30 07/30/17 00:00 110 07/30/17 00:00 99.5 110 15 81/41 99 Mechanical Ventilator 30 99.5 07/30/17 00:00 30 07/29/17 23:18 101 14 100 Mechanical Ventilator 30 07/29/17 23:09 30 07/29/17 23:08 109 14 98 Mechanical Ventilator 30 07/29/17 23:08 109 14 30 07/29/17 23:00 109 14 111/66 99 Mechanical Ventilator 30 07/29/17 22:17 102 07/29/17 22:00 104 14 86/50 99 Mechanical Ventilator 30 07/29/17 21:00 106 81/50 07/29/17 21:00 104 14 30 07/29/17 21:00 106 14 81/50 99 Mechanical Ventilator 30 07/29/17 20:00 30 07/29/17 20:00 106 14 85/48 99 Mechanical Ventilator 30 07/29/17 20:00 100.8 117 14 85/48 98 Mechanical Ventilator 30 100.8 07/29/17 20:00 117 07/29/17 19:34 120 14 100 Mechanical Ventilator 30 07/29/17 19:24 117 14 100 Mechanical Ventilator 30 07/29/17 19:24 30 07/29/17 19:24 117 14 30 07/29/17 19:21 99.5 07/29/17 19:00 102.0 115 14 79/45 99 Mechanical Ventilator 30 102.0 07/29/17 18:00 115 14 95/54 98 Mechanical Ventilator 30 07/29/17 17:03 107 14 30 07/29/17 17:00 116 14 98/48 98 Mechanical Ventilator 30 07/29/17 16:00 98.7 110 14 107/46 98 Mechanical Ventilator 30 98.7 07/29/17 16:00 112 07/29/17 16:00 30 07/29/17 15:21 30 07/29/17 15:21 98 14 Mechanical Ventilator 30 07/29/17 15:11 103 14 100 Mechanical Ventilator 30 07/29/17 15:10 103 14 30 07/29/17 15:00 112 14 103/44 98 Mechanical Ventilator 30 Height (Feet): 5 Weight (Pounds): 167 General Appearance: WD/WN, no acute distress HEENT: normocephalic, atraumatic, anicteric, mucous membranes moist, supple, other - ET tube in her mouth Respiratory/Chest: no respiratory distress, no accessory muscle use, decreased breath sounds, crackles/rales, expiratory wheezing Cardiovascular: normal peripheral pulses, normal rate, regular rhythm, no gallop/murmur, no JVD Abdomen: normal bowel sounds, soft, non tender, no organomegaly, non distended , no mass, no scars Extremities: no cyanosis, no clubbing Skin: no rash, no lesions, no ulcers Neurologic/Psychiatric: unresponsiveness, other - intubated on mechanical ventilation, not on sedations Lymphatic: no neck adenopathy, no groin adenopathy Laboratory Tests Test 07/30/17 03:50 07/30/17 04:00 07/30/17 12:11 White Blood Count 7.5 K/UL (4.8-10.8) Red Blood Count 3.20 M/UL (4.20-5.40) L Hemoglobin 8.8 G/DL (12.0-16.0) L Hematocrit 27.4 % (37.0-47.0) L Mean Corpuscular Volume 86 FL (80-99) Mean Corpuscular Hemoglobin 27.6 PG (27.0-31.0) Mean Corpuscular Hemoglobin Concent 32.2 G/DL (32.0-36.0) Red Cell Distribution Width 15.4 % (11.6-14.8) H Platelet Count 78 K/UL (150-450) L Mean Platelet Volume 6.8 FL (6.5-10.1) Neutrophils (%) (Auto) % (45.0-75.0) Lymphocytes (%) (Auto) % (20.0-45.0) Monocytes (%) (Auto) % (1.0-10.0) Eosinophils (%) (Auto) % (0.0-3.0) Basophils (%) (Auto) % (0.0-2.0) Differential Total Cells Counted 100 Neutrophils % (Manual) 83 % (45-75) H Lymphocytes % (Manual) 10 % (20-45) L Monocytes % (Manual) 5 % (1-10) Eosinophils % (Manual) 1 % (0-3) Basophils % (Manual) 1 % (0-2) Band Neutrophils 0 % (0-8) Platelet Estimate Decreased L Platelet Morphology Normal Hypochromasia 2+ Anisocytosis 1+ Spherocytes 1+ Prothrombin Time 20.7 SEC (9.30-11.50) H Prothromb Time International Ratio 2.0 (0.9-1.1) H Sodium Level 137 MMOL/L (136-145) Potassium Level 3.7 MMOL/L (3.5-5.1) Chloride Level 103 MMOL/L (98-107) Carbon Dioxide Level 24 MMOL/L (21-32) Anion Gap 10 mmol/L (5-15) Blood Urea Nitrogen 26 mg/dL (7-18) H Creatinine 1.8 MG/DL (0.55-1.30) H Estimat Glomerular Filtration Rate mL/min (>60) Glucose Level 157 MG/DL (74-106) H Calcium Level 7.7 MG/DL (8.5-10.1) L Pro-B-Type Natriuretic Peptide 2587 pg/mL (0-125) H Arterial Blood pH 7.391 (7.350-7.450) 7.317 (7.350-7.450) Arterial Blood Partial Pressure CO2 30.8 mmHg (35.0-45.0) L 31.2 mmHg (35.0-45.0) L Arterial Blood Partial Pressure O2 98.3 mmHg (75.0-100.0) 159.2 mmHg (75.0-100.0) H Arterial Blood HCO3 18.3 mmol/L (22.0-26.0) L 15.6 mmol/L (22.0-26.0) L Arterial Blood Oxygen Saturation 96.9 % (92.0-98.0) 98.3 % (92.0-98.0) H Arterial Blood Base Excess -5.9 -9.5 Tom Test Positive Positive Current Medications Medications (Trade) Dose Ordered Sig/Tam Route PRN Reason Start Time Stop Time Status Last Admin Dose Admin Acetaminophen (Tylenol) 650 mg Q6H PRN ORAL Mild Pain/Temp > 100.5 07/28/17 16:30 08/17/17 22:29 07/30/17 13:20 Albuterol Sulfate (Proventil) 2.5 mg Q4H PRN HHN Shortness of Breath 07/28/17 17:00 07/31/17 00:59 07/30/17 11:38 Albuterol/ Ipratropium (Albuterol/ Ipratropium) 3 ml Q4HRT HHN 07/28/17 23:00 08/02/17 22:59 07/30/17 07:26 Atorvastatin Calcium (Lipitor) 10 mg QHS GT 07/28/17 21:00 08/17/17 20:59 07/29/17 21:13 Dextrose (Dextrose 50%) STAT PRN IV Hypoglycemia 07/28/17 17:00 08/17/17 16:59 Dextrose (Dextrose 50%) STAT PRN IV Hypoglycemia 07/30/17 13:15 08/29/17 13:14 Insulin Aspart (NovoLOG) EVERY 6 HOURS SUBQ 07/30/17 13:30 08/29/17 13:29 07/30/17 14:32 Lansoprazole (Prevacid) 30 mg DAILY GT 07/29/17 09:00 08/26/17 08:59 07/30/17 09:21 Levothyroxine Sodium (Synthroid) 75 mcg ACBREAKFAST GT 07/29/17 06:30 08/28/17 06:29 07/30/17 06:29 Linezolid 300 ml @ 300 mls/hr Q12HR IVPB 07/28/17 21:00 08/03/17 23:59 07/30/17 09:21 Lorazepam (Ativan 2mg/ml 1ml) 1 mg EVERY 8 HOURS PRN IV For Anxiety 07/30/17 10:30 08/06/17 10:29 07/30/17 10:43 Metoprolol Tartrate (Lopressor) 25 mg Q12HR GT 07/28/17 21:00 08/27/17 08:59 07/30/17 09:22 Morphine Sulfate (Morphine Sulfate) 1 mg Q4H PRN IVP Moderate to Severe Pain 07/28/17 20:30 08/04/17 20:29 07/30/17 09:53 Piperacillin Sod/ Tazobactam Sod 3.375 gm/Sodium Chloride 110 ml @ 27.5 mls/hr EVERY 8 HOURS IVPB 07/30/17 14:45 08/04/17 14:44 Sitagliptin Phosphate (Januvia) 25 mg ACBREAKFAST GT 07/29/17 06:30 08/20/17 06:29 07/30/17 06:29 Warfarin Sodium (Coumadin per pharmacy) 1 ea DAILYPRN PRN MISC Per rx protocol 07/29/17 09:00 08/28/17 08:59 Warfarin Sodium (Coumadin) 1 mg COUMADIN ORAL 07/30/17 17:00 08/04/17 16:59 Juan Foy M.D. Jul 30, 2017 14:49
[2017-07-30] MEDS: Piperacillin/Tazobactam 3.375 GM in NS 110 ML IVPB SCH ×2 (15:00→22:26)
--- NOTE | 2017-07-30 16:44 | Cardiology Progress Note ---
Assessment/Plan Assessment/Plan 1. Hypotension, likely septic shock, start Ruiz gtt if MAP <65 mmHg. 2. Acute respiratory failure, could be multifactorial in combination of chronic obstructive pulmonary disease and congestive heart failure. CXR shows no pulmonary edema. 3. 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 4. Paroxysmal atrial flutter, metoprolol 2.5mg IVP times one, digoxin level. 5. Moderate mitral stenosis due to mitral annular calcification and mitral leaflet calcification. Continue B-blockers. 6. Small LV with normal LVEF. Subjective Subjective Atrial flutter at 146. Hypotensive. Lethargic. Objective Last 24 Hour Vital Signs Date Time Temp Pulse Resp B/P (MAP) Pulse Ox O2 Delivery O2 Flow Rate FiO2 07/30/17 15:08 99 22 100 Mechanical Ventilator 30 07/30/17 15:02 97 23 30 07/30/17 15:01 97 22 100 Mechanical Ventilator 30 07/30/17 15:01 30 07/30/17 15:00 141 28 83/55 97 Mechanical Ventilator 07/30/17 14:19 99.5 07/30/17 14:00 146 29 95/42 97 Mechanical Ventilator 07/30/17 13:20 100.0 07/30/17 13:00 150 22 97/40 95 Mechanical Ventilator 30 07/30/17 12:55 105 26 30 07/30/17 12:00 107 07/30/17 12:00 30 07/30/17 12:00 99.2 108 20 140/70 100 Mechanical Ventilator 30 99.2 07/30/17 11:45 119 25 100 Mechanical Ventilator 07/30/17 11:39 115 24 96 Mechanical Ventilator 07/30/17 11:01 Mechanical Ventilator 30 07/30/17 11:00 Mechanical Ventilator 30 07/30/17 11:00 135 28 145/80 97 Mechanical Ventilator 30 07/30/17 10:30 151 28 30 07/30/17 10:00 144 28 124/73 92 Mechanical Ventilator 30 07/30/17 09:22 144 109/79 07/30/17 09:00 140 16 123/82 95 Mechanical Ventilator 30 07/30/17 08:35 122 16 30 07/30/17 08:00 117 07/30/17 08:00 98.7 122 16 107/58 94 Mechanical Ventilator 30 98.7 3/3/18 07:33 109 14 100 Mechanical Ventilator 30 07/30/17 07:27 30 07/30/17 07:27 100 14 30 07/30/17 07:26 100 16 99 Mechanical Ventilator 30 07/30/17 07:00 122 16 108/53 95 Mechanical Ventilator 30 07/30/17 06:00 99 16 91/52 99 Mechanical Ventilator 30 07/30/17 06:00 30 07/30/17 05:15 90 14 30 07/30/17 05:00 75 16 100/50 99 Mechanical Ventilator 30 07/30/17 04:48 99 101/60 07/30/17 04:00 30 07/30/17 04:00 99.0 97 16 86/49 99 Mechanical Ventilator 30 99.0 07/30/17 04:00 97 07/30/17 03:26 103 14 100 Mechanical Ventilator 30 07/30/17 03:17 90 16 98 Mechanical Ventilator 30 07/30/17 03:17 90 16 30 07/30/17 03:17 30 07/30/17 02:00 95 16 86/46 99 Mechanical Ventilator 30 07/30/17 01:13 110 14 30 07/30/17 01:00 106 16 88/45 99 Mechanical Ventilator 30 07/30/17 00:00 110 07/30/17 00:00 99.5 110 15 81/41 99 Mechanical Ventilator 30 99.5 07/30/17 00:00 30 07/29/17 23:18 101 14 100 Mechanical Ventilator 30 07/29/17 23:09 30 07/29/17 23:08 109 14 98 Mechanical Ventilator 30 07/29/17 23:08 109 14 30 07/29/17 23:00 109 14 111/66 99 Mechanical Ventilator 30 07/29/17 22:17 102 07/29/17 22:00 104 14 86/50 99 Mechanical Ventilator 30 07/29/17 21:00 106 81/50 07/29/17 21:00 104 14 30 07/29/17 21:00 106 14 81/50 99 Mechanical Ventilator 30 07/29/17 20:00 30 07/29/17 20:00 106 14 85/48 99 Mechanical Ventilator 30 07/29/17 20:00 100.8 117 14 85/48 98 Mechanical Ventilator 30 100.8 07/29/17 20:00 117 07/29/17 19:34 120 14 100 Mechanical Ventilator 30 07/29/17 19:24 117 14 100 Mechanical Ventilator 30 07/29/17 19:24 30 07/29/17 19:24 117 14 30 07/29/17 19:21 99.5 07/29/17 19:00 102.0 115 14 79/45 99 Mechanical Ventilator 30 102.0 07/29/17 18:00 115 14 95/54 98 Mechanical Ventilator 30 07/29/17 17:03 107 14 30 07/29/17 17:00 116 14 98/48 98 Mechanical Ventilator 30 Intake and Output 07/29/17 07/30/17 19:00 07:00 Intake Total 535 ml 660 ml Output Total 540 ml 550 ml Balance -5 ml 110 ml Free Water 120 ml IV Total 400 ml Tube Feeding 135 ml 540 ml Output Urine Total 540 ml 550 ml # Bowel Movements 1 2D Echo: EF 65%, Mod MS, Sev LAE, Hi PCWP, Enlarged RA/RV,Medium PE Laboratory Tests Test 07/30/17 03:50 07/30/17 04:00 07/30/17 04:30 07/30/17 12:11 White Blood Count 7.5 K/UL (4.8-10.8) Red Blood Count 3.20 M/UL (4.20-5.40) L Hemoglobin 8.8 G/DL (12.0-16.0) L Hematocrit 27.4 % (37.0-47.0) L Mean Corpuscular Volume 86 FL (80-99) Mean Corpuscular Hemoglobin 27.6 PG (27.0-31.0) Mean Corpuscular Hemoglobin Concent 32.2 G/DL (32.0-36.0) Red Cell Distribution Width 15.4 % (11.6-14.8) H Platelet Count 78 K/UL (150-450) L Mean Platelet Volume 6.8 FL (6.5-10.1) Neutrophils (%) (Auto) % (45.0-75.0) Lymphocytes (%) (Auto) % (20.0-45.0) Monocytes (%) (Auto) % (1.0-10.0) Eosinophils (%) (Auto) % (0.0-3.0) Basophils (%) (Auto) % (0.0-2.0) Differential Total Cells Counted 100 Neutrophils % (Manual) 83 % (45-75) H Lymphocytes % (Manual) 10 % (20-45) L Monocytes % (Manual) 5 % (1-10) Eosinophils % (Manual) 1 % (0-3) Basophils % (Manual) 1 % (0-2) Band Neutrophils 0 % (0-8) Platelet Estimate Decreased L Platelet Morphology Normal Hypochromasia 2+ Anisocytosis 1+ Spherocytes 1+ Prothrombin Time 20.7 SEC (9.30-11.50) H Prothromb Time International Ratio 2.0 (0.9-1.1) H Sodium Level 137 MMOL/L (136-145) Potassium Level 3.7 MMOL/L (3.5-5.1) Chloride Level 103 MMOL/L (98-107) Carbon Dioxide Level 24 MMOL/L (21-32) Anion Gap 10 mmol/L (5-15) Blood Urea Nitrogen 26 mg/dL (7-18) H Creatinine 1.8 MG/DL (0.55-1.30) H Estimat Glomerular Filtration Rate mL/min (>60) Glucose Level 157 MG/DL (74-106) H Calcium Level 7.7 MG/DL (8.5-10.1) L Pro-B-Type Natriuretic Peptide 2587 pg/mL (0-125) H Arterial Blood pH 7.391 (7.350-7.450) 7.317 (7.350-7.450) Arterial Blood Partial Pressure CO2 30.8 mmHg (35.0-45.0) L 31.2 mmHg (35.0-45.0) L Arterial Blood Partial Pressure O2 98.3 mmHg (75.0-100.0) 159.2 mmHg (75.0-100.0) H Arterial Blood HCO3 18.3 mmol/L (22.0-26.0) L 15.6 mmol/L (22.0-26.0) L Arterial Blood Oxygen Saturation 96.9 % (92.0-98.0) 98.3 % (92.0-98.0) H Arterial Blood Base Excess -5.9 -9.5 Tom Test Positive Positive Digoxin Level Pending Objective HEENT: Atraumatic and normocephalic. Anicteric. Pupils are equal, round, and reactive to light and accommodation. Extraocular muscles intact, intubated. NECK: JVP cannot be assessed, No carotid bruit. Carotid upstrokes 2+ bilaterally. CARDIOVASCULAR: Normal S1 and S2. Regular rhythm. Tachyardic. A 2/6 mid systolic murmur at the left sternal border. PMI is at fourth intercostal space in the midclavicular line. LUNGS: Diminished breath sounds in both lungs. Did not appreciate any crackles. ABDOMEN: Obese. No hepatosplenomegaly. Positive bowel sounds. EXTREMITIES: No evidence of edema, clubbing, or cyanosis. DIETER BECKWITH Jul 30, 2017 16:44
--- NOTE | 2017-07-30 16:54 | General Progress Note ---
Assessment/Plan Assessment/Plan 1) CHF again with acute exacerbation of chronic diastolic CHF 2) UTI with sepsis due to Klesiella 3) ? staph bacteremia, ? source, R/O SBE 4) CopD exacerbation 5) WENDY improving with diuresis pointing toward cardio-renal syndrome 6) A. 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 Fib 10 Leukocytosis ? silent aspirations 11) Metabolic and respiratory Alkalosis 12) Hypoventilation with respiratory failure 13) Hypotension, ? sepsis Plan: Continue IV ATB's boluses of IV fluid Might need to be on pressors Subjective Allergies: Coded Allergies: No Known Allergies (Unverified , 07/18/17) Subjective She is hypotensive, still on the vent, still going in to Aflutter and sinus rythm, she had fever 102 , started on zosyn, U/O is decreased Objective Last 24 Hour Vital Signs Date Time Temp Pulse Resp B/P (MAP) Pulse Ox O2 Delivery O2 Flow Rate FiO2 07/30/17 15:08 99 22 100 Mechanical Ventilator 30 07/30/17 15:02 97 23 30 07/30/17 15:01 97 22 100 Mechanical Ventilator 30 07/30/17 15:01 30 07/30/17 15:00 141 28 83/55 97 Mechanical Ventilator 07/30/17 14:19 99.5 07/30/17 14:00 146 29 95/42 97 Mechanical Ventilator 07/30/17 13:20 100.0 07/30/17 13:00 150 22 97/40 95 Mechanical Ventilator 30 07/30/17 12:55 105 26 30 07/30/17 12:00 107 07/30/17 12:00 30 07/30/17 12:00 99.2 108 20 140/70 100 Mechanical Ventilator 30 99.2 07/30/17 11:45 119 25 100 Mechanical Ventilator 07/30/17 11:39 115 24 96 Mechanical Ventilator 07/30/17 11:01 Mechanical Ventilator 30 07/30/17 11:00 Mechanical Ventilator 30 07/30/17 11:00 135 28 145/80 97 Mechanical Ventilator 30 07/30/17 10:30 151 28 30 07/30/17 10:00 144 28 124/73 92 Mechanical Ventilator 30 07/30/17 09:22 144 109/79 07/30/17 09:00 140 16 123/82 95 Mechanical Ventilator 30 07/30/17 08:35 122 16 30 07/30/17 08:00 117 07/30/17 08:00 98.7 122 16 107/58 94 Mechanical Ventilator 30 98.7 07/30/17 07:33 109 14 100 Mechanical Ventilator 30 07/30/17 07:27 30 07/30/17 07:27 100 14 30 07/30/17 07:26 100 16 99 Mechanical Ventilator 30 07/30/17 07:00 122 16 108/53 95 Mechanical Ventilator 30 07/30/17 06:00 99 16 91/52 99 Mechanical Ventilator 30 07/30/17 06:00 30 07/30/17 05:15 90 14 30 07/30/17 05:00 75 16 100/50 99 Mechanical Ventilator 30 07/30/17 04:48 99 101/60 07/30/17 04:00 30 07/30/17 04:00 99.0 97 16 86/49 99 Mechanical Ventilator 30 99.0 07/30/17 04:00 97 07/30/17 03:26 103 14 100 Mechanical Ventilator 30 07/30/17 03:17 90 16 98 Mechanical Ventilator 30 07/30/17 03:17 90 16 30 07/30/17 03:17 30 07/30/17 02:00 95 16 86/46 99 Mechanical Ventilator 30 07/30/17 01:13 110 14 30 07/30/17 01:00 106 16 88/45 99 Mechanical Ventilator 30 07/30/17 00:00 110 07/30/17 00:00 99.5 110 15 81/41 99 Mechanical Ventilator 30 99.5 07/30/17 00:00 30 07/29/17 23:18 101 14 100 Mechanical Ventilator 30 07/29/17 23:09 30 07/29/17 23:08 109 14 98 Mechanical Ventilator 30 07/29/17 23:08 109 14 30 07/29/17 23:00 109 14 111/66 99 Mechanical Ventilator 30 07/29/17 22:17 102 07/29/17 22:00 104 14 86/50 99 Mechanical Ventilator 30 07/29/17 21:00 106 81/50 07/29/17 21:00 104 14 30 07/29/17 21:00 106 14 81/50 99 Mechanical Ventilator 30 07/29/17 20:00 30 07/29/17 20:00 106 14 85/48 99 Mechanical Ventilator 30 07/29/17 20:00 100.8 117 14 85/48 98 Mechanical Ventilator 30 100.8 07/29/17 20:00 117 07/29/17 19:34 120 14 100 Mechanical Ventilator 30 07/29/17 19:24 117 14 100 Mechanical Ventilator 30 07/29/17 19:24 30 07/29/17 19:24 117 14 30 07/29/17 19:21 99.5 07/29/17 19:00 102.0 115 14 79/45 99 Mechanical Ventilator 30 102.0 07/29/17 18:00 115 14 95/54 98 Mechanical Ventilator 30 07/29/17 17:03 107 14 30 07/29/17 17:00 116 14 98/48 98 Mechanical Ventilator 30 Intake and Output 07/29/17 07/30/17 19:00 07:00 Intake Total 535 ml 660 ml Output Total 540 ml 550 ml Balance -5 ml 110 ml Free Water 120 ml IV Total 400 ml Tube Feeding 135 ml 540 ml Output Urine Total 540 ml 550 ml # Bowel Movements 1 Laboratory Tests 07/30/17 03:50: White Blood Count 7.5, Red Blood Count 3.20L, Hemoglobin 8.8L, Hematocrit 27.4L , Mean Corpuscular Volume 86, Mean Corpuscular Hemoglobin 27.6, Mean Corpuscular Hemoglobin Concent 32.2, Red Cell Distribution Width 15.4H, Platelet Count 78L, Mean Platelet Volume 6.8, Neutrophils (%) (Auto) , Lymphocytes (%) (Auto) , Monocytes (%) (Auto) , Eosinophils (%) (Auto) , Basophils (%) (Auto) , Differential Total Cells Counted 100, Neutrophils % ( Manual) 83H, Lymphocytes % (Manual) 10L, Monocytes % (Manual) 5, Eosinophils % ( Manual) 1, Basophils % (Manual) 1, Band Neutrophils 0, Platelet Estimate DecreasedL, Platelet Morphology Normal, Hypochromasia 2+, Anisocytosis 1+, Spherocytes 1+, Prothrombin Time 20.7H, Prothromb Time International Ratio 2.0H , Sodium Level 137, Potassium Level 3.7, Chloride Level 103, Carbon Dioxide Level 24, Anion Gap 10, Blood Urea Nitrogen 26H, Creatinine 1.8H, Estimat Glomerular Filtration Rate , Glucose Level 157H, Calcium Level 7.7L, Pro-B-Type Natriuretic Peptide 2587H 07/30/17 04:00: Arterial Blood pH 7.391, Arterial Blood Partial Pressure CO2 30.8L, Arterial Blood Partial Pressure O2 98.3, Arterial Blood HCO3 18.3L, Arterial Blood Oxygen Saturation 96.9, Arterial Blood Base Excess -5.9, Tom Test Positive 07/30/17 04:30: Digoxin Level [Pending] 07/30/17 12:11: Arterial Blood pH 7.317L, Arterial Blood Partial Pressure CO2 31.2L, Arterial Blood Partial Pressure O2 159.2H, Arterial Blood HCO3 15.6L, Arterial Blood Oxygen Saturation 98.3H, Arterial Blood Base Excess -9.5, Tom Test Positive Height (Feet): 5 Weight (Pounds): 167 General Appearance: WD/WN, alert Neck: non-tender, normal alignment Cardiovascular: JVD - nl Respiratory/Chest: decreased breath sounds Abdomen: normal bowel sounds, non tender Extremities: normal range of motion 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
[2017-07-30] MEDS ORDERED: Warfarin Sodium 1mg ORAL SCH (17:00)
[2017-07-30] MEDS ORDERED: Phenylephrine 50 MG in D5W 245 ML IV SCH (17:30)
[2017-07-30] MEDS ORDERED: Dyna-Hex 2% Top Sol 2oz TOPIC SCH (20:00)
[2017-07-30] MEDS ORDERED: Nail Polish Remover TOPIC ONE (21:45)
--- NOTE | 2017-07-30 22:07 | Emergency Room Report ---
History of Present Illness General Chief Complaint: Dyspnea/Respdistress Source: Family Member Present Illness Allergies: Coded Allergies: No Known Allergies (Unverified , 07/18/17) Patient History Now: No Nursing Documentation-PMH Hx Hypertension: Yes Hx Asthma: Yes Hx COPD: Yes Hx Dementia: Yes Physical Exam Vital Signs Date Time Temp Pulse Resp B/P (MAP) Pulse Ox O2 Delivery O2 Flow Rate FiO2 07/18/17 13:21 98.0 130 20 140/80 98 Non-Rebreather 98.1 07/18/17 13:35 21 07/18/17 13:47 7.0 Procedures Critical Care Time Critical Care Time CC time 30 min Critical care time endorsed for this patient for asystole, cardiac arrest Critical care time includes review of laboratory tests, imaging, review of EMR, review of paperwork from SNF (if available), discussion with patient and family (if available), review of code status/POLS (if available). Critical care time also likely includes assessment of fluid status, stabilization of vital signs, selection and dosing of appropriate antibiotics, selection and dosing of Aspirin/Plavix/Heparin/Lovenox, discussion with PMD/ attending hospitalist/dinkey driver. Critical care time does not include any procedures which are documented elsewhere in this EMR. CPR/Code Blue CPR/Code Blue Narrative Called at 945pm to ICU for Code Blue Patient allegedly "bradycardia down to asystole" CPR in progress 1 epi already given After 1 additional round of CPR, pulse check done - no pulse. Monitor showed unorganized rhythm. CPR continued with additional epi and 1 bicarb given On second pulse check, had organized rhythm, strong peripheral pulse ROSC at 959pm Patients daughter and her bedside I advised them of the situation - they had multiple questions regarding mother' s prognosis, why she was in the ICU, etc. I directed the charge loader to call Dr Pride, the primary doctor for the patient, to discuss the patient with family. Medical Decision Making Diagnostic Impression: Primary Impression: Respiratory failure Last Vital Signs Date Time Temp Pulse Resp B/P (MAP) Pulse Ox O2 Delivery O2 Flow Rate FiO2 07/30/17 21:06 89 25 30 07/30/17 21:00 106/60 07/30/17 20:05 98 Mechanical Ventilator 07/30/17 20:00 98.2 98.2 07/27/17 21:38 2.0 Disposition: ADMITTED INPATIENT Condition: Critical Referrals: Mae Barrios MD (PCP) MAE JACOBS M.D. Jul 30, 2017 22:07
--- NOTE | 2017-07-30 22:27 | Emergency Room Report ---
History of Present Illness General Chief Complaint: Dyspnea/Respdistress Source: Family Member Present Illness Allergies: Coded Allergies: No Known Allergies (Unverified , 07/18/17) Patient History Now: No Nursing Documentation-PMH Hx Hypertension: Yes Hx Asthma: Yes Hx COPD: Yes Hx Dementia: Yes Physical Exam Vital Signs Date Time Temp Pulse Resp B/P (MAP) Pulse Ox O2 Delivery O2 Flow Rate FiO2 07/18/17 13:21 98.0 130 20 140/80 98 Non-Rebreather 98.1 07/18/17 13:35 21 07/18/17 13:47 7.0 Procedures Central Line Central Line : Consent: Emergent Central Line Lumen: triple Maximal Sterile Barrier Tech: yes cap, yes mask, yes sterile gown, yes sterile gloves, yes large sterile sheet, yes hand hygiene, yes chlorhexidine prep Central Line Postion: femoral (L) Complications: none Central Line Post Position: sutured, good blood return Attempts: One Patient Tolerated: Well Complications: None Medical Decision Making Diagnostic Impression: Primary Impression: Respiratory failure ER Course I was called to the ICU to place a central line in this patient. Patient likely experiencing septic shock with hypotension not responsive to IV fluids. Patient recently intubated for asthma exacerbation I placed a left femoral central line without complication. Last Vital Signs Date Time Temp Pulse Resp B/P (MAP) Pulse Ox O2 Delivery O2 Flow Rate FiO2 07/30/17 21:06 89 25 30 07/30/17 21:00 106/60 07/30/17 20:05 98 Mechanical Ventilator 07/30/17 20:00 98.2 98.2 07/27/17 21:38 2.0 Status: improved Disposition: ADMITTED INPATIENT Condition: Critical Referrals: Marcello Barrios MD (PCP) TRENTON REYNA M.D. Jul 30, 2017 22:26
[2017-07-30] MEDS ORDERED: Levophed 4mg/4mL Inj IV ONE (22:41)
[2017-07-31] MEDS: NovoLOG Insulin Flexpen SUBQ SCH
[2017-07-31] MEDS ORDERED: Sodium Bicarbonate 100 ML in D5W 1000ml 1,000 ML IV SCH (00:30)
[2017-07-31] MEDS ORDERED: Sodium Bicarbonate 50ml Carp ONE ×4 (00:42→01:57)
[2017-07-31 01:09] VITALS: BP 60/36
[2017-07-31 01:19] LABS: HEMATOCRIT 25.6 % (37.0-47.0); HEMOGLOBIN 7.9 G/DL (12.0-16.0); MEAN CORPUSCULAR VOLUME 90 FL (80-99); PLATELET COUNT 60 K/UL (150-450); RED BLOOD COUNT 2.85 M/UL (4.20-5.40); RED CELL DISTRIBUTION WIDTH 15.9 % (11.6-14.8); WHITE BLOOD COUNT 16.8 K/UL (4.8-10.8)
[2017-07-31 01:35] LABS: INR 3.7 (0.9-1.1)
[2017-07-31 01:53] LABS: ALANINE AMINOTRANSFERASE 4580 U/L (12-78); ALBUMIN 1.6 G/DL (3.4-5.0); ALBUMIN/GLOBULIN RATIO 0.7 (1.0-2.7); ALKALINE PHOSPHATASE 107 U/L (46-116); ANION GAP 23 mmol/L (5-15); BILIRUBIN,TOTAL 0.8 MG/DL (0.2-1.0); BLOOD UREA NITROGEN 31 mg/dL (7-18); CALCIUM 9.3 MG/DL (8.5-10.1); CARBON DIOXIDE 19 MMOL/L (21-32); CHLORIDE 101 MMOL/L (98-107); CREATININE 2.8 MG/DL (0.55-1.30); PHOSPHORUS > 9.0 MG/DL (2.5-4.9); SODIUM 143 MMOL/L (136-145)
[2017-07-31] MEDS ORDERED: NS 500ML ONE ×4 (01:57)
[2017-07-31] MEDS ORDERED: NS 275ml ONE ×2 (01:57)
[2017-07-31] MEDS ORDERED: DOPamine 400mg/250ml BTL IV ONE (01:57)
[2017-07-31] MEDS ORDERED: Tubing IV Secondary IV ONE ×2 (01:57)
[2017-07-31] MEDS ORDERED: Sterile Water Irrig 1000ml IRRIG ONE (01:57)
[2017-07-31] MEDS ORDERED: D5W 275ml ONE (01:57)
[2017-07-31 02:03] LABS: POTASSIUM 6.2 MMOL/L (3.5-5.1)
[2017-07-31 02:07] LABS: ASPARTATE AMINO TRANSFERASE 10252 U/L (15-37)
--- NOTE | 2017-07-31 03:28 | Emergency Room Report ---
History of Present Illness General Chief Complaint: Dyspnea/Respdistress Source: Family Member Present Illness Allergies: Coded Allergies: No Known Allergies (Unverified , 07/18/17) Patient History Now: No Nursing Documentation-PMH Hx Hypertension: Yes Hx Asthma: Yes Hx COPD: Yes Hx Dementia: Yes Physical Exam Vital Signs Date Time Temp Pulse Resp B/P (MAP) Pulse Ox O2 Delivery O2 Flow Rate FiO2 07/18/17 13:21 98.0 130 20 140/80 98 Non-Rebreather 98.1 07/18/17 13:35 21 07/18/17 13:47 7.0 Procedures CPR/Code Blue CPR/Code Blue Narrative Patient had Code Blue called additional 7 times over the night Per RN, patient has orders being placed by Dr Pride, Dr To from Cardiology , and Dr Wick from Pulm. Repeat ABG showed pH of 6.8, bicarb of 5 - acute onset of metabolic acidosis Patient had transient respond to bicarb bolus and epi during code with ROSC after 5-10 of CPR however then would code again Patient started on bicarb gtt I spoke to Dr Pride after 3rd Code Blue regarding goals of care, discussion with family and coordination of care across providers. I myself spoke to patient's daughter and son-in-law multiple times during visits to ED. They asked many questions about patient's care in hospital that I was unable to answer as I am not the patient's physician or reverse unit operator. He ordered repeat CMP, Mg level check - elevated K noted along with very elevated AST/ALT c/w shock liver. Lactate ~22. After 7x Code Blue, Dr Pride asked team to terminate resuscitation Patient pronounced at 155am - fixed/dilated pupils, asystole on monitor, no auscultated breath or heart sounds, no gag reflux. Family is bedside. Medical Decision Making Diagnostic Impression: Primary Impression: Respiratory failure Last Vital Signs Date Time Temp Pulse Resp B/P (MAP) Pulse Ox O2 Delivery O2 Flow Rate FiO2 07/31/17 01:09 60/36 07/31/17 00:00 91 07/30/17 21:45 16 81 Mechanical Ventilator 30 07/30/17 20:00 98.2 98.2 07/27/17 21:38 2.0 Disposition: ADMITTED INPATIENT Condition: Critical Referrals: Mae Barrios MD (PCP) MAE JACOBS M.D. Jul 31, 2017 03:28
--- NOTE | 2017-07-31 11:44 | Diagnostic Imaging Report ---
Indication: Intubation Comparison: 07/30/2017 at 13:38 A single view chest radiograph was obtained. Findings: Tubes are stable. Heart is enlarged but stable. Pulmonary vascularity appears mildly prominent but stable. IMPRESSION: No change. Mild CHF
--- NOTE | 2017-07-31 12:09 | Diagnostic Imaging Report ---
Indication: Dyspnea Comparison: None A single view chest radiograph was obtained. Findings: Development of mild pulmonary vascular congestion demonstrated with interstitial edema. The heart is enlarged. Tubes and lines are stable. IMPRESSION: Development of mild CHF
--- NOTE | 2017-07-31 14:57 | Cardiology Report ---
APPROVED REPORT EXAM: Two-dimensional and M-mode echocardiogram with Doppler and color Doppler. INDICATION Pericardial Effusion. M-Mode DIMENSIONS IVSd1.0 (0.7-1.1cm)Left Atrium (MM)4.5 (1.6-4.0cm) LVDd5.0 (3.5-5.6cm)Aortic Root2.9 (2.0-3.7cm) PWd0.9 (0.7-1.1cm)Aortic Cusp Exc.1.7 (1.5-2.0cm) LVDs4.6 (2.5-4.0cm) PWs1.1 cm Technically difficult study due to poor parasternal windows. Study quality precludes accurate assessment of regional wall motion. Normal left ventricular chamber size, systolic function and wall motion to extent visualized. Left ventricular ejection fraction estimated to be 60-65 %. No evidence of left ventricular hypertrophy. Small anterior and posterior pericardial effusion. All other cardiac chamber sizes are within normal limits. Mild focal aortic valve sclerosis with reduced cusp excursion. Heavily thickened mitral valve leaflets with reduced excursion. Moderate mitral annulus and aortic root calcification. Pulmonic valve not well visualized. Normal tricuspid valve structure. IVC dilated at 1.9 cm without physiological collapse. A color flow and spectral Doppler study was performed and revealed: Mild to moderate aortic insufficiency. Mild mitral regurgitation. Mitral P1/2 time of 81 m/s is compatible with a mitral valve area of 1.0 cm2 Peak mitral valve diastolic gradient of 21 mmHg and a mean gradient of 11 mmHg Moderate mitral stenosis. Left ventricular diastolic function could not be determined due to A-Fib. Trace tricuspid regurgitation. Tricuspid systolic velocities suggests peak right ventricular systolic pressure of 26 mmHg. Moderate pulmonic regurgitation present.
--- NOTE | 2017-08-02 16:14 | Cardiology Report ---
APPROVED REPORT EKG Measurement Heart [id number] Sinus tachycardia Right axis deviation Pulmonary disease pattern Possible Right ventricular hypertrophy Abnormal ECG
--- NOTE | 2017-08-05 11:56 | Discharge Summary ---
Discharge Summary Hospital Course Date of Admission Jul 18, 2017 at 15:07 Date of Discharge Jul 31, 2017 at 01:58 Admitting Diagnosis asthma exacerbation HPI Brisa Galvez is a 76 year old female who was admitted on Jul 18, 2017 at 15: 07 for Asthma Exacerbation Hospital Course summary #[id number] Discharge Discharge Disposition Patient was discharged to Discharge Diagnoses: Discharge Instructions Discharge Instructions Special Instructions I have been assigned to complete a D/C Summary on this account. I was not involved in the patient management Eula Purcell NP (Vanchtein) Aug 05, 2017 11:56
--- NOTE | 2017-08-06 03:45 | Discharge Summary 2 SIG ---
SUMMARY DATE OF ADMISSION: 07/18/2017 DATE OF EXPIRATION: 07/31/2017 REASON FOR ADMISSION: 76 years old female with past medical history significant for atrial fibrillation (on Coumadin), asthma/chronic obstructive pulmonary disease (secondary to secondhand smoking), severe obstructive sleep apnea, diabetes mellitus type 2, anemia, hypothyroidism, was brought from assisted living for evaluation due to the shortness of breath. She was tachypneic and required placement on the BiPAP. EKG showed atrial fibrillation, no acute ischemic changes. Chest x-ray revealed pulmonary vascular congestion. Lactic acid - 1.2. Troponin elevated -0.15. ProBNP -10,940. White blood count -11. Urinalysis showed evidence of urinary tract infection. The patient was tachycardic. The patient was admitted with a diagnosis of respiratory failure likely due to the underlying congestive heart failure; probable exacerbation of acute diastolic congestive heart failure; pyuria with underlying urinary tract infection; diabetes mellitus type 2; obstructive sleep apnea; hypothyroidism; asthma/chronic obstructive pulmonary disease exacerbation. HOSPITAL COURSE: The patient admitted. Cardiology, Pulmonology, and ID consults were requested. The patient started on diuresis with close monitoring of cardiorenal parameters and volumes. Echocardiogram revealed preserved ejection fraction of 60% to 65%, right ventricular systolic pressure of 30, and at least moderate mitral stenosis. Serial troponin were trended. The patient started on empiric antibiotics. ID closely followed with antibiotic management. Ditcher Operator started the patient on nebulizing treatment with bronchodilator and intravenous steroids. CPAP at night for sleep apnea. Urine culture revealed Klebsiella. Blood culture showed Staph coag-negative, likely real as per ID. Repeated blood culture were negative. Repeated urine and sputum culture showed Fany. Echocardiogram revealed no evidence of vegetation to suggest endocarditis. Patient was status post treatment for urinary tract infection. Bacteremia was most likely real as per ID specialist. Per ID recommendation, patient required two weeks of IV antibiotics from the clearance day. Patient did not meet criteria for endocarditis since she was low suspicion for it and repeated blood culture remained negative. The patient was treated with antibiotics empirically for aspiration pneumonia. Chest x-ray was closely monitored. Aspiration precautions were maintained. Electrophysiology consult was obtained since the patient demonstrated continuous tachy-karely syndrome. Per doughnut batter mixer, the patient would benefit from the permanent pacemaker. The patient had tachy-karely syndrome and likely sick sinus syndrome, and would benefit from permanent pacemaker after clinically stable. INR needed to be corrected prior to the procedure. Atrial fibrillation was persistent. The patient had episodes of atrial fibrillation with rapid ventricular response. Heart rate was controlled with beta-timbo IV and digoxin. The patient was on anticoagulation. Electrolytes were corrected as needed with close monitoring of cardiorenal parameters and electrolytes. According to survey technologist, dyspnea was multifactorial due to the combination of chronic obstructive pulmonary disease and congestive heart failure exacerbation. The patient was on low dose beta-timbo and wax closely observed. Intravenous steroids continued. Diuretic continued. The patient had evidence of acute kidney injury, but it was improving with diuresis pointing toward cardiorenal syndrome. Electrolytes were repleted as needed. The patient started to work with physical therapy. On 07/28/2017, the patient condition worsened. The patient was on BiPAP. ABG revealed evidence of acute respiratory acidosis and hypercapnia. Emergency room physician was called to intubate the patient. The patient was subsequently intubated. Ventilator support and pulmonary toilet provided as needed. All consultants closely followed. Ditcher Operator attempted to wean the patient initially, however, the patient was tachycardic and bill peddler placed weaning on hold. On 07/30/2017, at 9:45 p.m. Marian Blue was called. The patient was bradycardic and then became asystolic. CPR was successful with return of spontaneous circulation. Laboratory workup was ordered at that time, which revealed evidence of leukocytosis, hyperkalemia, acute renal failure, shock liver, elevated troponin, anemia and thrombocytopenia. Additional orders were placed by attending physician, survey technologist and bill peddler. Patient was hypotensive and required start of Ruiz-Synephrine to keep mean arterial pressure above 65. The patient had total of seven cardiac arrests over the night from 07/30/2017 through 07/31/2017 and during the last one, resuscitation efforts were terminated after multiple discussions with the family about grave prognosis. The patient was pronounced at 1:55 a.m. on 07/31/2017. Cause of : cardiopulmonary arrest. FINAL DIAGNOSES: 1. Status post multiple cardiopulmonary arrest. 2. Sepsis with bacteremia, Staph coag-negative. 3. Hypotension 4. Likely septic shock. 5. Acute respiratory failure requiring intubation (likely due to congestive heart failure and chronic obstructive pulmonary disease exacerbation). 6. Acute exacerbation of chronic diastolic congestive heart failure. 7. Aspiration pneumonia. 8. Urinary tract infection with Klebsiella. 9. Chronic asthma/chronic obstructive pulmonary disease exacerbation. 10. Obstructive sleep apnea. 11. Acute kidney injury. 12. Probably cardiorenal syndrome. 13. Diabetes mellitus. 14. Moderate mitral stenosis. 15. Persistent atrial fibrillation with rapid ventricular response. 16. Tachy-bradycardia syndrome. 17. Probably sick sinus syndrome. 18. Dementia. 19. Metabolic and respiratory alkalosis. 20. Sacral coccyx stage I pressure ulcer, present on admission. 21. Hypothyroidism. Mihai Pride M.D. I have been assigned to dictate discharge summary on this account and I was not involved in the patient's management. Eula JacksonCohen Children'S Medical CenterMaritza N.PRoger DR: JENNIFER JOB#: [id number] CC: MADDISON
== END 2017-07-31 01:58 | disposition expired | DRG 871 ==
LOC: EDBD 13:20 → EMR 13:30 → 2W 15:07 → EDBEDREQ 18:55 → 2W 23:15 → ICU 07-28 15:30
PROC: 5A1945Z Respiratory Ventilation, 24-96 Consecutive Hours (ICD-10-PCS; principal; 2017-07-28)
PROC: 0BH17EZ Insertion of Endotracheal Airway into Trachea, Via Natural or Artificial Opening (ICD-10-PCS; principal; 2017-07-28)
PROC: 5A12012 Performance of Cardiac Output, Single, Manual (ICD-10-PCS; 2017-07-30)
PROC: 06HN33Z Insertion of Infusion Device into Left Femoral Vein, Percutaneous Approach (ICD-10-PCS; 2017-07-30)
PROC: 5A12012 Performance of Cardiac Output, Single, Manual (ICD-10-PCS; 2017-07-31)
DX: A41.2 Sepsis due to unspecified staphylococcus (principal); J96.00 Acute respiratory failure, unspecified whether with hypoxia or hypercapnia; K72.00 Acute and subacute hepatic failure without coma; R65.21 Severe sepsis with septic shock; J69.0 Pneumonitis due to inhalation of food and vomit; I50.33 Acute on chronic diastolic (congestive) heart failure; N17.9 Acute kidney failure, unspecified; L89.151 Pressure ulcer of sacral region, stage 1; J44.0 Chronic obstructive pulmonary disease with (acute) lower respiratory infection; N39.0 Urinary tract infection, site not specified; J44.1 Chronic obstructive pulmonary disease with (acute) exacerbation; E87.3 Alkalosis; E87.1 Hypo-osmolality and hyponatremia; I48.0 Paroxysmal atrial fibrillation; E11.9 Type 2 diabetes mellitus without complications; G47.33 Obstructive sleep apnea (adult) (pediatric); Z79.01 Long term (current) use of anticoagulants; I49.5 Sick sinus syndrome; R00.1 Bradycardia, unspecified; F03.90 Unspecified dementia, unspecified severity, without behavioral disturbance, psychotic disturbance, mood disturbance, and anxiety; E03.9 Hypothyroidism, unspecified; R33.8 Other retention of urine; I34.2 Nonrheumatic mitral (valve) stenosis; E87.6 Hypokalemia; Z86.74 Personal history of sudden cardiac arrest
CPT/HCPCS: 36415; 36600; 70450; 71045; 74018; 76770; 80048; 80053; 80162; 80202; 81001; 81003; 82044; 82140; 82533; 82570; 82803; 82962; 83036; 83605; 83735; 83880; 84100; 84443; 84484; 85007; 85025; 85610; 85730; 86160; 86162; 87040; 87070; 87081; 87086; 87181; 87205; 87324; 92950; 93005; 93306; 93970; 94002; 94003; 94640; 94660; 94664; 94760; 99291; J0171; J1815; J2370; J7620; J8499